=== PATIENT | male | born 1935 | race Caucasian/White ===

== ENCOUNTER → 2019-12-09 | Outpatient (CLI) | payer BC, SELFPAY ==
--- NOTE | 2019-12-09 09:49 | CDU_ITS ---
Reason For Study: [facility] [place] LEFT EYE Rt. Velocities/BP Lt. Velocities/BP Prox CCA 78/18 cm/sec. Prox CCA 76/18 cm/sec. Mid CCA 80/23 cm/sec. Mid CCA 74/22 cm/sec. Dist CCA 55/18 cm/sec. Dist CCA 74/23 cm/sec. Prox ICA 94/27 cm/sec. Prox ICA 264/73 cm/sec. Mid ICA 87/23 cm/sec. Mid ICA 189/31 cm/sec. Dist ICA 52/17 cm/sec. Dist ICA 257/60 cm/sec. Rt. ICA/CCA = 1.2. Lt. ICA/CCA = 3.6. Prox ECA 170/38 cm/sec. Prox ECA 498/66 cm/sec. Rt. Vert. 78/24 cm/sec. Lt. Vert. 34/13 cm/sec. Right Extracranial There is homogeneous, smooth atherosclerotic plaque noted in the right common carotid artery. There is heterogeneous, irregular atherosclerotic plaque noted in the right internal carotid artery. There is heterogeneous, irregular atherosclerotic plaque noted in the right external carotid artery. Antegrade flow is noted in the right vertebral artery. There is heterogeneous, irregular atherosclerotic plaque noted in the right bulb. Left Extracranial There is heterogeneous, irregular atherosclerotic plaque noted in the left common carotid artery. There is homogeneous, smooth atherosclerotic plaque noted in the left common carotid artery. There is heterogeneous, irregular atherosclerotic plaque noted in the left internal carotid artery. The left internal carotid artery is very tortuous. There is heterogeneous, irregular atherosclerotic plaque noted in the left external carotid artery. Antegrade flow is noted in the left vertebral artery. There is heterogeneous, irregular atherosclerotic plaque noted in the left bulb. Procedure Carotid Duplex 34419. The study was technically difficult. Exam performed in department. Interpretation Summary Irregular calcific plaque of the proximal right internal carotid artery with less than 50% stenosis. <50% stenosis right external carotid Irregular calcific plaque left mid common carotid Irregular calcific plaque of the proximal left internal carotid with >70% stenosis and tortuosity noted Irregular plague noted within the left carotid bulb >50% stenosis left external carotid Patent and antegrade vertebrals bilaterally Ordering Physician: Vivian Stone Referring Physician: VIVIAN MORALES Performed By: Vanessa Bhandari RDCS, RVT
== END | disposition home or self-care (01) ==
PROVIDERS: PCP Family Medicine; Referring Provider Ophthalmology; Visit Provider Ophthalmology
DX: H34.212 Partial retinal artery occlusion, left eye (principal)
CPT/HCPCS: 93880

== ENCOUNTER → 2019-12-13 | Outpatient (CLI) | payer BC, SELFPAY ==
[2019-12-13 13:23] VITALS: BMI 28.3
[2019-12-13 14:12] LABS: Hematocrit 42.6 % (40-54); Hemoglobin 14.5 g/dL (13.0-16.5); Mean Corpuscular Hgb 32.4 pg (27.0-32.0); Mean Corpuscular Volume 95.3 fL (80-94); Mean Platelet Vol. 8.4 fl (6.2-12.0); Platelet Count 305 K/mm3 (150-450); RBC Distribution Width CV 13.6 % (11.6-14.6); RBC Distribution Width SD 47.6 fl (35.1-43.9); Red Blood Count 4.47 M/mm3 (4.6-6.2); White Blood Count 11.7 K/mm3 (4.4-11.0)
[2019-12-13 14:21] LABS: Anion Gap 3 (5-15); BUN 21 mg/dL (7-18); BUN/Creat Ratio 14.4 RATIO (10-20); Calcium,Total 9.4 mg/dL (8.5-10.1); Chloride 102 mmol/L (98-107); Creatinine, Serum 1.46 mg/dL (0.70-1.30); EST Glomerular Filtration Rate 49 mL/min (>60); Est Glom Filt Rate - Afr Amer 59 mL/min (>60); Glucose 98 mg/dL (74-106); Potassium 4.5 mmol/L (3.5-5.1); Sodium Level 134 mmol/L (136-145)
== END | disposition home or self-care (01) ==
LOC: PAVLAB 13:56
PROVIDERS: PCP Family Medicine; Referring Provider Surgery; Visit Provider Surgery
DX: Z01.818 Encounter for other preprocedural examination (principal)
CPT/HCPCS: 36415; 80048; 85027

== ENCOUNTER → 2019-12-20 | Outpatient (CLI) | payer BC, SELFPAY ==
[2019-12-13 13:23] VITALS: BMI 28.3
--- NOTE | 2019-12-20 14:46 | CT_ITS ---
STUDY: CTA NECK WITH CONTRAST REASON FOR EXAM: Male, 84 years old. carotid stenosis. hx of prostate ca RADIATION DOSAGE (If Supplied By Facility): CTDIvol = ( 41.23 ) mGy, DLP = ( 1082.76 ) mGycm TECHNIQUE: CT angiography with multi-detector data acquisition was performed from the aortic arch to the skull base following intravenous administration of IV 100ML ISOVUE 370. MIP images were reconstructed from the axial data set. Post-processing of the angiographic images was performed, with multiplanar reformation and 3D reconstruction. Individualized dose optimization techniques were used for this CT. COMPARISON: Carotid ultrasound 12/09/2019 FINDINGS: AORTIC ARCH: Normal visualized aortic arch. Calcified plaque is associated with a 50% stenosis of the origin of the left subclavian artery, with residual lumen diameter of 4 mm a poststenotic diameter of 8 mm. RIGHT CAROTID ARTERIES: Normal right common carotid artery (CCA). Heavy eccentric calcified bulb plaque with an associated 70% proximal ICA stenosis, with residual lumen diameter of 1.8 mm and poststenotic diameter of 6.2 mm. Normal origin of the right external carotid artery (ECA). LEFT CAROTID ARTERIES: Normal left common carotid artery (CCA). Eccentric calcified bulb plaque without proximal ICA stenosis. More distally, eccentric soft ICA plaque is associated with a focal stenosis of 60% stenosis with residual lumen diameter of 2.2 mm and poststenotic diameter of 4.9 mm. Normal origin of the left external carotid artery (ECA). VERTEBRAL ARTERIES: Normal bilateral vertebral arteries. 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 70% stenosis of the right proximal ICA. 60% stenosis of the left proximal ICA. NASCET criteria was used. Electronically Signed: True Cardenas MD at 22:55 EDT Tel , Service support ,
== END | disposition home or self-care (01) ==
LOC: CT 14:38
PROVIDERS: PCP Family Medicine; Referring Provider Surgery; Visit Provider Surgery
DX: Z01.818 Encounter for other preprocedural examination (principal); I65.29 Occlusion and stenosis of unspecified carotid artery
CPT/HCPCS: 70498; Q9967; A4216

== ENCOUNTER → 2019-12-22 | Outpatient (CLI) | payer BC, SELFPAY ==
[2019-12-13 13:23] VITALS: BMI 28.3
--- NOTE | 2019-12-22 08:31 | AAVD_ITS ---
Reason For Study: AAA Aorta Measurements Aorta Doppler Measurements Proximal aorta measures1.44 x 1.57cm. in cross- Peak systolic flow velocities within the proximal sectional axis. aorta measure 53 cm/sec. Proximal aorta measures1.49cm. in longitudinal Peak systolic flow velocities within the mid aorta axis. measure 45.3 cm/sec. Mid aorta measures3.90 x 3.90cm. in cross- Peak systolic flow velocities within the distal sectional axis. aorta measure 44.5 cm/sec. Mid aorta measures3.86cm. in longitudinal axis. Distal aorta measures2.36 x 2.31cm. in cross- sectional axis. Distal aorta measures2.20cm. in longitudinal axis. Left Iliac Artery Left iliac artery measures 0.93 x 0.93 cm. in the cross-sectional axis. Left iliac artery measures 0.86 cm. in the longitudinal axis. Peak systolic velocity in the left iliac artery measures 142.4 cm/sec. Right Iliac Artery Right iliac artery measures 0.98 x 0.93 cm. in the cross-sectional axis. Right iliac artery measures 0.78 cm. in the longitudinal axis. Peak systolic velocity in the right iliac artery measures 138.1 cm/sec. Procedure Aorta IVC Iliac vasculature or bypass grafts 38833. Exam performed in department. Interpretation Summary 3.9 x 3.9 cm mid abdominal aortic aneurysm Left common iliac 0.93 x 0.93 cm Right common iliac 0.98 x 0.93 cm Ordering Physician: Roddy Chapin Referring Physician: Wallace Vora Performed By: Caprice Pitt RVT and Student
== END | disposition home or self-care (01) ==
LOC: CVS 08:31
PROVIDERS: PCP Family Medicine; Referring Provider Surgery; Visit Provider Surgery
DX: I71.4 Abdominal aortic aneurysm, without rupture (principal)
CPT/HCPCS: 93978

== ENCOUNTER 2020-03-27 12:32 | Observation (INO) | payer BC, MEDICARE, SELFPAY ==
[2020-03-27] VITALS (8 sets, daily range): BP systolic 124–146; BP diastolic 70–80; PULSE 62–108; RESP 15–21; TEMP 35.7–37.1; O2SAT 96–97; BMI 28.8; BMI 27.8
--- NOTE | 2020-03-27 12:46 | CT_ITS ---
STUDY: CT BRAIN WITHOUT CONTRAST REASON FOR EXAM: Male, 85 years old. CONFUSION, GENERALIZED WEAKNESS SINCE LAST NIGHT, HTN, PROSTATE CA RADIATION DOSAGE (If Supplied By Facility): CTDIvol = ( 60.81 ) mGy, DLP = ( 998.67 ) mGycm TECHNIQUE: Transaxial CT imaging of the brain was performed without administration of intravenous contrast material. Individualized dose optimization techniques were used for this CT. COMPARISON: No relevant priors. FINDINGS: Normal soft tissue structures. Normal calvarium. There is mild cerebral atrophy with widening of the extra-axial spaces and ventricular dilatation. There are areas of decreased attenuation within the white matter tracts of the supratentorial brain, consistent with microvascular disease changes. Normal basal ganglia and thalami. Normal brainstem. There is mild cerebellar atrophy. There is no intracranial hemorrhage. There are no findings of an acute ischemic infarction. Atherosclerotic calcification of the cavernous portions of the internal carotid arteries bilaterally. Normal visualized paranasal sinuses. CT/Brain/Head without Contrast IMPRESSION: Chronic involutional changes of the brain. Electronically Signed: Hardy Casas MD at 13:50 EST , Service support ,
--- NOTE | 2020-03-27 12:46 | EKG12_ITS ---
Test Reason : Blood Pressure : / mmHG Vent. Rate : 098 BPM Atrial Rate : 098 BPM P-R Int : 172 ms QRS Dur : 106 ms QT Int : 360 ms P-R-T Axes : 000 137 149 degrees QTc Int : 459 ms Normal sinus rhythm Right bundle branch block Possible Right ventricular hypertrophy Inferior infarct , age undetermined Abnormal ECG Confirmed by PEGGY SILVESTRE, KYLEE ([id number]), assignment desk editor DIDI STAHL ([id number]) on 04/02/2020 12:47:18 PM Referred By: MANAN Confirmed By:KYLEE WOODS MD
--- NOTE | 2020-03-27 12:48 | ED.RN ---
NO OLD EKG
--- NOTE | 2020-03-27 12:51 | ED.VISSUMM ---
- ER Visit Summary Date of Service: 03/27/20 Chief Complaint: General weakness and intermittent confusion History of Present Illness: The patient is a 85 M presents with general weakness and intermittent confusion that began yesterday. Patient states it is gradually gotten worse. Patient states his confusion comes and goes. Son states that the patient has been forgetting to complete sentences at times. Patient states he feels weak all over. Patient denies any hemiparesis or facial weakness. Patient does admit to a mild headache. Patient denies any fevers or chills. Patient does admit to some mild rhinorrhea. Patient denies any cough or shortness of breath. Patient denies any loss of taste or smell. Physical Examination: Vital signs are stable. Patient is afebrile. Patient is in no acute distress. Oral mucosa is pink and moist. Neck is supple. Trachea is midline. There is no JVD noted. Heart was regular rate and rhythm. Lungs are clear and equal bilaterally. Abdomen is soft. Bowel sounds are normal. There is no tenderness. There is no rebound or guarding noted. Skin is warm dry. Patient is awake, alert, and oriented to person, place, year, and month. She is confused on the date. Cranial nerves II through XII are intact. There are no focal motor or sensory deficits noted. Extremities are intact. There is no calf tenderness or edema. Test Results: EKG was obtained. On my interpretation, there is normal sinus rhythm with a rate of 98. There is a right bundle branch block pattern noted. There are no acute ST or T wave changes. There are no prior EKGs available for comparison. CBC shows a leukocytosis of 14.3. Basic metabolic profile was essentially within normal limits. Lactate was elevated at 2.8. Urinalysis does not show any evidence of urinary tract infection. CT scan of the brain was obtained. There are chronic changes but no acute abnormality. This was interpreted by the radiologist and reviewed by myself. Portable 1 view chest x-ray was obtained. On my interpretation, lung alfaro are clear. There is normal cardiac silhouette. Bony thorax is normal. There is no acute process noted. Radiologist also interpreted the x-ray and agrees. COVID-19 rapid antigen was obtained and was negative. Emergency Department Course and Treatment: Patient was given IV fluids. Patient is feeling better on reevaluation. Case was discussed with the hospitalist. Patient will be admitted for observation. Patient and family understood and were agreeable with the plan. All questions were answered. Disposition: Admit to hospital Impression: 1. TIA 2. Lactic acidosis This note was generated with [employer] dictation software. It may contain incorrect words, spelling, and punctuation that were not noted in review of the chart prior to signing ED Disposition - Plan for ED Patient: Disposition: Acute Care Hospital [facility] Diagnosis: TIA (transient ischemic attack), Lactic acidosis Referrals: Wallace Vora MD [Primary Care Provider] -
--- NOTE | 2020-03-27 13:15 | RAD_ITS ---
STUDY: X-RAY CHEST REASON FOR EXAM: Male, 85 years old. PT STATES GENERAL WEAKNESS SINCE LAST NIGHT AND INTERMITTENT CONFUSION. DENIES INJURY OR OTHER C/O. TECHNIQUE: Single AP portable view of the chest. COMPARISON: None. FINDINGS: EKG electrodes are seen. Mild elevation of the right hemidiaphragm. Mild degree of increased markings at the lung bases suggestive of either linear atelectasis and/or scar. There is no demonstrated pleural abnormality. Normal size heart. Normal mediastinum and mj. Normal visualized pulmonary arteries. There is atherosclerotic calcification of the aortic arch with tortuosity. There are degenerative changes of the visualized thoracic spine. Normal visualized ribs, clavicles, and shoulders. There is no demonstrated abnormality of the visualized soft tissue structures of the upper abdomen. RAD/Chest 1 View (Portable) IMPRESSION: Mild degree of increased linear markings at the lung bases suggestive of linear atelectasis and/or scarring. Electronically Signed: Hardy Casas MD at 13:42 EST , Service support ,
[2020-03-27 13:26] LABS: Bedside Glucose 111 mg/dL (70-110)
[2020-03-27 13:29] LABS: Absolute Lymphocyte Count 0.69 X10^3/uL (0.83-4.51); Basophil# 0.06 X10^3/uL; Basophil% 0.4 % (0-1); Hematocrit 41.9 % (40-54); Hemoglobin 14.8 g/dL (13.0-16.5); Lymphocyte # 0.69 X10^3/ul (4.0); Lymphocyte % 4.8 % (19-41); Mean Corp Hgb Conc 35.3 g/dL (32-36); Mean Corpuscular Hgb 33.3 pg (27.0-32.0); Mean Corpuscular Volume 94.2 fL (80-94); Mean Platelet Vol. 9.6 fl (6.2-12.0); Monocyte# 0.43 X10^3/uL; NRBC Flagged by Analyzer 0 % (0-5); Neutrophil # 13.02 X10^3/uL (2.7-7.7); Neutrophil % 91.2 % (47-70); Platelet Count 274 K/mm3 (150-450); RBC Distribution Width CV 13.4 % (11.6-14.6); RBC Distribution Width SD 46.9 fl (35.1-43.9); Red Blood Count 4.45 M/mm3 (4.6-6.2); White Blood Count 14.3 K/mm3 (4.4-11.0)
[2020-03-27 13:49] LABS: Lactic Acid 2.8 mmol/L (0.4-1.9)
[2020-03-27 13:50] LABS: ALB/GLOB Ratio 1.3 RATIO (0.9-2.4); AST(SGOT) 17 U/L (15-37); Alanine Aminotransfer ALT/SGPT 29 U/L (16-61); Alkaline Phosphatase 55 U/L (45-117); Anion Gap 5 (5-15); BUN 23 mg/dL (7-18); BUN/Creat Ratio 16.7 RATIO (10-20); Calcium,Total 9.1 mg/dL (8.5-10.1); Chloride 104 mmol/L (98-107); Creatinine, Serum 1.38 mg/dL (0.70-1.30); EST Glomerular Filtration Rate 52 mL/min (>60); Est Glom Filt Rate - Afr Amer 63 mL/min (>60); Estimated Creatinine Clearance 39.14 ml/min; Globulin 3.1 g/dL (2.2-4.2); Glucose 125 mg/dL (74-106); Potassium 4.7 mmol/L (3.5-5.1); Protein, Total 7.1 g/dL (6.4-8.2); Sodium Level 136 mmol/L (136-145)
[2020-03-27 14:07] LABS: Bacteria 0 SEEN /hpf (None Seen); Mucous, Urine 0 SEEN /hpf (<or=2+); White Blood Cells 0 SEEN /hpf (0-5)
[2020-03-27 14:33] LABS: Color, Urine Yellow (Yellow); Glucose, Dipstick Normal (Normal); Ketone-Dipstick 5 mg/dl (Negative); Leukocyte Esterase-Dipstick Negative /ul (Negative); Nitrite-Dipstick Negative (Negative); Occult Blood-Urine 50 /ul (Negative); Protein-Dipstick 100 mg/dl (Negative); Urine Bilirubin Dipstick Negative (Negative); Urine Clarity Clear (Clear); Urine Urobilinogen Normal (Normal); Urine pH 6.5 (5.0 - 8.0)
[2020-03-27 14:40] LABS: Red Blood Cells-Urine 0-5 SEEN /hpf (0-5); Squamous Epithelial Cells - UA 0-5 SEEN /hpf (0-5)
[2020-03-27] MEDS: 0.9% Normal Saline 1,000 ML 999 ML IV (15:04)
--- NOTE | 2020-03-27 15:40 | PCM.HP.STD ---
Problem List (1) Lactic acidosis Status: Acute (2) Abdominal aortic aneurysm (AAA) Status: Acute Qualifiers: Presence of rupture: without rupture Qualified Code(s): I71.4 - Abdominal aortic aneurysm, without rupture (3) Hyperlipidemia Status: Chronic Qualifiers: Hyperlipidemia type: unspecified Qualified Code(s): E78.5 - Hyperlipidemia, unspecified (4) Hypertension Status: Chronic Qualifiers: Hypertension type: essential hypertension Qualified Code(s): I10 - Essential (primary) hypertension (5) Carotid stenosis Status: Acute Qualifiers: Laterality: left Qualified Code(s): I65.22 - Occlusion and stenosis of left carotid artery History of Present Illness Date of Admission: 03/27/20 Chief Complaint: Confusion- 1 day The patient is a 85 year old M with past medical history of hypertension, hyperlipidemia, recently diagnosed with carotid stenosis, aortic aneurysm who comes in with confusion that was noted on the day of admission. Patient lives with his is fairly independent. He was recently diagnosed with carotid stenosis. He was told that if he had confusion he was to come to the emergency department. He was noted to be confused today which is unlike himself. Today is his birthday but he could not tell. He denied any recent illness. No sick contact. No fever or chills or diarrhea or nausea or vomiting or dysuria. Vitals in the ED showed temperature of 98.8F, heart rate 108, blood pressure 134/76, respiratory rate 16, SPO2 is 97% on room air. WBC count is 14.3, hemoglobin 14.8, platelet 274, sodium 136, potassium 4.7, chloride 104, bicarbonate 27, BUN 23, creatinine 1.38,. Creatinine is 1.46. Actiq acid is 2.8, troponins are negative. LFTs unremarkable. CT scan of the brain showed chronic involuntary changes. Chest x-ray showed mild degree of increased linear markings in the lung bases suggestive of atelectasis/scarring Brain MRI showed mild atrophy and periventricular white matter ischemic changes. Multiple punctate foci of acute white matter ischemia within the left frontal and parietal lobes and distribution of the left middle cerebral artery. Past Medical History Past Medical History (Chronic Problems): Chronic Problems (Last Reviewed 12/26/19 @ 13:29 by Vicenta Owens) Hyperlipidemia (Chronic) Hypertension (Chronic) Medical History: Medical History (Last Reviewed 12/26/19 @ 13:29 by Vicenta Owens) Abdominal aortic aneurysm (AAA) (Acute) I71.4 Hyperlipidemia (Acute) E78.5 Hypertension (Chronic) I10 Carotid stenosis (Acute) I65.29 Allergies No Known Allergies Allergy (Verified 03/27/20 12:36) Home Medications: Ambulatory Orders Medication Instructions Recorded aspirin 81 mg tablet,delayed 81 mg PO DAILY 12/13/19 release calcium carbonate 600 mg calcium 600 mg PO QODAY 12/13/19 (1,500 mg) tablet cetirizine 10 mg tablet 10 mg PO DAILY PRN PRN 12/13/19 guaifenesin 600 mg tablet, 600 mg PO Q12H PRN 12/13/19 extended release 12 hr lisinopril 30 mg tablet 30 mg PO DAILY 12/13/19 spironolactone 25 mg tablet 25 mg PO DAILY 12/13/19 vit C,E,zinc,copper-bhnap7e 250 1 cap PO DAILY 12/13/19 mg-lutein 5 mg-zeaxanthin 1 mg capsule atorvastatin 10 mg tablet 10 mg PO QODAY tab 12/26/19 Surgical History: Surgical History (Last Reviewed 12/26/19 @ 13:29 by Vicenta Owens) History of tonsillectomy and adenoidectomy Z98.890 Surgical History: tonsillectomy Psychiatric History: No pertinent psych hx Lives: Spouse/ Significant Other, With Family Smoking Status: Former smoker Tobacco Use: Non-smoker Alcohol: None Drugs: None - *Family History Maternal Family History: Family History (Last Reviewed 12/26/19 @ 13:29 by Vicenta Owens) Mother CVA (cerebral vascular accident) History Items: Stroke - Brain aneurysm, - Paternal Family History: Family History (Last Reviewed 12/26/19 @ 13:29 by Vicenta Owens) Mother CVA (cerebral vascular accident) History Items: No pertinent history Review of Systems Constitutional: Denies: Anorexia, Chills, Fever, Night Sweats, Malaise, Weakness, Weight Change, Fatigue Eyes: Denies: Blurred vision, Cataracts, Conjunctivae Inflammation, Pain, Redness, Vision Change HEENT: Denies: Head Aches, Hearing Changes, Sinus Congestion, Sinus Drainage Cardiovascular: Denies: Chest Pain, Claudication, Orthopnea, Palpitations, Paroxysmal Noc. Dyspnea Respiratory: Denies: Cough, Hemoptysis, Shortness of breath at rest, Shortness of breath upon exertion, Sputum production, Wheezing Gastrointestinal: Denies: Abdominal Pain, Constipation, Hematemesis, Hematochezia, Nausea, Vomiting Genitourinary: Denies: Dysuria, Frequency, Incontinence, Nocturia Musculoskeletal: Denies: Joint Pain, Joint stiffness, Joint swelling, Joint Tenderness Skin: Denies: Rash, Wounds Neurological: Reports: Confusion. Denies: Difficulty swallowing, Focal weakness, Numbness, Tingling Psychiatric: Denies: Anxiety, Depression, Homicidal Ideations, Suicidal Ideations Hematologic/ Lymphatic: Denies: Easy Bruising, Easy Bleeding VTE Information - Inpt Only VTE Present on Admission: No VTE Pharm Prophylaxis ordered?: Yes Patient Problems: Active and Suspected Problems (Last Reviewed 12/26/19 @ 13:29 by Vicenta Owens) TIA (transient ischemic attack) (Acute) Lactic acidosis (Acute) Abdominal aortic aneurysm (AAA) (Acute) Carotid stenosis (Acute) - Physical Exam Vitals/I&O's: Vital Signs Temp Pulse Resp BP Pulse Ox 98.8 F 89 20 H 136/80 H 96 03/27/20 12:33 03/27/20 15:04 03/27/20 15:04 03/27/20 15:04 03/27/20 15:04 Oxygen Delivery Method Room Air Weight: 88.451 kg Body Mass Index (BMI) 28.8 Finger Stick Blood Glucose 111 General: Alert, Cooperative, Confused - Oriented to person, place but not time HEENT: Atraumatic, PERRLA, EOMI, Normocephalic Oral: Moist Mucosa Neck: Supple Lungs: Clear to auscultation, Normal air movement Cardiovascular: Regular rate, Regular Rhythm, Normal S1, Normal S2, No murmurs Abdomen: Bowel Sounds Present, Soft, Non Tender, Non-Distended, No Hepato-splenomegaly Extremities: No edema Skin: No rashes Musculoskeletal: No Tenderness to Palpation of Joints or Extremities Lymphatic: No Cervical, Supraclavicular, or Inguinal Adenopathy Neurological: Cranial nerves II-XII grossly intact, Neuro grossly intact Psych/Mental Status: Normal Affect, Appropriate Microbiology Past 72 Hours 03/27/20 13:15 Mucosa - Nose SARS-CoV-2 Antigen (Rapid) - Final Laboratory Results 03/27/20 13:15: WBC 14.3 H, RBC 4.45 L, Hgb 14.8, Hct 41.9, MCV 94.2 H, MCH 33.3 H, MCHC 35.3, RDW Std Deviation 46.9 H, RDW Coeff of Britt 13.4, Plt Count 274, MPV 9.6, Immature Gran % (Auto) 0.600, Neut % (Auto) 91.2 H, Lymph % (Auto) 4.8 L, [place] % (Auto) 3.0, Eos % (Auto) 0.0, Baso % (Auto) 0.4, Absolute Neuts (auto) 13.0 H, Absolute Lymphs (auto) 0.69 L, Nucleated RBC % 0 03/27/20 13:15: Sodium 136, Potassium 4.7, Chloride 104, Carbon Dioxide 27.0, Anion Gap 5, BUN 23 H, Creatinine 1.38 H, Estim Creat Clear Calc 39.14, Est GFR (MDRD) Af Amer 63, Est GFR (MDRD) Non-Af 52 L, BUN/Creatinine Ratio 16.7, Glucose 125 H, Calcium 9.1, Total Bilirubin 0.50, AST 17, ALT 29, Alkaline Phosphatase 55, Troponin I < 0.015, Total Protein 7.1, Albumin 4.0, Globulin 3.1, Albumin/Globulin Ratio 1.3 03/27/20 13:15: Lactic Acid 2.8 H* 03/27/20 13:21: POC Glucose 111 H 03/27/20 14:00: Urine Color Yellow, Urine Clarity Clear, Urine pH 6.5, Ur Specific [place] 1.010, Urine Protein 100 H, Urine Glucose (UA) Normal, Urine Ketones 5 H, Urine Occult Blood 50 H, Urine Nitrite Negative, Urine Bilirubin Negative, Urine Urobilinogen Normal, Ur Leukocyte Esterase Negative, Urine RBC 0-5 SEEN, Urine WBC 0 SEEN, Ur Squamous Epith Cells 0-5 SEEN, Urine Bacteria 0 SEEN, Urine Mucus 0 SEEN Current Medications Sodium Chloride () 1,000 mls @ 999 mls/hr IV .Q1H1M ONE Stop: 03/27/20 15:45 Last Admin: 03/27/20 15:04 Dose: 999 mls/hr Documented by: Assessment/Plan All Active Problems (Last Reviewed 12/26/19 @ 13:29 by Vicenta Owens) TIA (transient ischemic attack) (Acute) Lactic acidosis (Acute) Abdominal aortic aneurysm (AAA) (Acute) Carotid stenosis (Acute) 1. 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 PT/OT/ST to evaluate and treat SOC consult in a.m. 2. Lactic acidosis; lactic acid of 2.1, no signs of acute infection Continue on IV fluids, repeat lactic acid per protocol 3. Carotid stenosis, bilateral, 70% stenosis of the right proximal ICA, 60% stenosis of the left ICA Continue on aspirin, Plavix, statin Repeat carotid ultrasound, vascular surgery consult 4. Hypertension, controlled, lisinopril and spironolactone to allow for permissive hypertension We will add hydralazine as needed 5. Hyperlipidemia, continue statin, lipid profile in a.m. 6. DVT prophylaxis - heparin subcu 7. CODE STATUS?DNR CCA I discussed and explained in details the various types of CODE STATUS-full code, DNR CCA, DNR CC. Patient chose DNR CCA. I recommended that he chooses and completes paperwork for power of county attorney for healthcare. I discussed with his son that he could discuss with social work in the morning. Time spent discussing CODE STATUS 18 minutes OBSV E&M: [id number] Initial observation care L3 Procedures: [id number] Advncd Care Plan 30 Min
[2020-03-27 17:21] LABS: Reflex Lactate? Y
--- NOTE | 2020-03-27 17:44 | MRI_ITS ---
We are attempting to reach an attending provider to discuss findings. An addendum with communication details will be sent when the communication is complete. STUDY: MRI BRAIN WITHOUT CONTRAST REASON FOR EXAM: Male, 85 years old. Confusion,generalized weakness TECHNIQUE: Standardized multiplanar fat and water weighted pulse sequences were obtained. COMPARISON: CT of the brain 03/27/2020 FINDINGS: Mild atrophy and periventricular white matter ischemic changes.. There are multiple punctate foci of high signal intensity within the periventricular white matter in the left frontal and parietal lobes demonstrating restricted diffusion consistent with acute ischemic changes in the distribution of left middle cerebral artery Normal bilateral basal ganglia. Normal thalami. There is no extra-axial fluid accumulation. Normal flow voids within the major intracranial circulation suggesting patency by spin echo criteria. Normal sella turcica, pituitary gland, infundibular stalk, optic chiasm and hypothalamus. Normal tectal plate and pineal gland. Normal midbrain, shala and medulla. Normal cerebellum. Normal basal cisterns. Normal bilateral temporal bones. Normal bilateral internal auditory canals. Postsurgical changes of the orbits.. Small mucous retention cyst in right maxillary sinus.. Normal calvarium and skull base. Normal visualized soft tissue structures. Normal visualized upper cervical spine. MRI/Brain without Contrast IMPRESSION: Mild atrophy and periventricular white matter ischemic changes. Multiple punctate foci of acute white matter ischemia within the left frontal and parietal lobes in distribution of left middle cerebral artery Electronically Signed: Wallace Saxena MD at 19:18 EST , Service support ,
[2020-03-27 19:28] LABS: Lactic Acid 1.2 mmol/L (0.4-1.9)
--- NOTE | 2020-03-27 19:48 | CDU_ITS ---
Reason For Study: Carotid stenosis Rt. Velocities/BP Lt. Velocities/BP Prox CCA 61.7/8.2 cm/sec. Prox CCA 60.8/13.5 cm/sec. Mid CCA 61.7/13.4 cm/sec. Mid CCA 59.7/15.7 cm/sec. Dist CCA 59.1/13.4 cm/sec. Dist CCA 60.8/14.6 cm/sec. Prox ICA 71.6/12.6 cm/sec. Prox ICA 54.4/9 cm/sec. Mid ICA 104.7/17 cm/sec. Mid ICA 339.5/50.1 cm/sec. Dist ICA 58.6/12.4 cm/sec. Dist ICA 207.8/36.5 cm/sec. Rt. ICA/CCA = 1.70. Lt. ICA/CCA = 5.58. Prox ECA 138.1/16.3 cm/sec. Prox ECA 315/16.9 cm/sec. Rt. Vert. 76.2/14.6 cm/sec. Lt. Vert. 29.1/9.9 cm/sec. Right Extracranial There is homogeneous, smooth atherosclerotic plaque noted in the right common carotid artery. There is heterogeneous, irregular atherosclerotic plaque noted in the right internal carotid artery. There is heterogeneous, irregular atherosclerotic plaque noted in the right external carotid artery. Antegrade flow is noted in the right vertebral artery. Left Extracranial There is heterogeneous, irregular atherosclerotic plaque noted in the left common carotid artery. There is heterogeneous, irregular atherosclerotic plaque noted in the left internal carotid artery. There is heterogeneous, irregular atherosclerotic plaque noted in the left external carotid artery. Antegrade flow is noted in the left vertebral artery. Procedure Carotid Duplex 13119. This is a Carotid Duplex examination using B-mode, color flow and specral Doppler. Exam performed portable in patient room. Interpretation Summary Irregular calcific plaque with shadowing at the proximal right internal carotid artery with less than 50% stenosis Less than 50% stenosis right external carotid artery Irregular calcific plaque with shadowing at the proximal left internal carotid artery with greater than 70% stenosis of the left mid internal carotid artery. Greater than 50% stenosis left external carotid artery Patent and antegrade vertebrals bilaterally Findings appear similar to the previous examination of December 09, 2019 Ordering Physician: Sydney Terry Referring Physician: Wallace Vora Performed By: Caprice Pitt RVT
--- NOTE | 2020-03-27 19:50 | ECHOCS_ITS ---
Reason For Study: TIA Procedure This was a 2D Doppler, Color Flow transthoracic echocardiogram. The study was technically difficult. Contrast injection was performed. Exam performed portable in patient room. Left Ventricle Normal LV size. Left ventricular systolic function is normal. The estimated ejection fraction is 65 %. Diastolic function is indeterminate. No regional wall motion abnormalities noted. Right Ventricle Normal RV size. Normal systolic function. Atria Normal left atrium. Normal right atrium. No doppler evidence for ASD. Bubble contrast study negative for right to left interatrial shunt. Mitral Valve There is no mitral annular calcification. Normal mitral valve. Trivial mitral valve insufficiency. Tricuspid Valve Normal tricuspid valve. Mild tricuspid valve insufficiency. Right ventricular systolic pressure estimated to be 25 mmHg. Aortic Valve Trisinus/trileaflet aortic valve. Mild focal aortic valve calcification. Pulmonic Valve The pulmonic valve is not well visualized. Trivial pulmonic valve insufficiency. Great Vessels Mildly dilated aortic root. Pericardium/Pleural No pericardial effusion. Medication Diluted definity 5.0ml given slow IV push to enhance endocardial definition. Performed a rapid injection of agitated mix of 9 cc saline and 1cc air to assess for atrial septal defect. MMode/2D Measurements & Calculations LVIDd: 4.6 cm IVSd: 0.70 cm Ao root diam: 4.1 cm LVIDs: 3.5 cm LVPWd: 0.71 cm LA dimension: 3.2 cm FS: 23.6 % LAV(MOD-bp): 29.2 ml LVAd ap4: 26.5 cm2 SV(MOD-sp4): 53.6 ml LAV(MOD-bp) Indexed: 14.2 ml/m2 EDV(MOD-sp4): 78.0 ml LAV(MOD-sp2): 33.7 ml EDV(sp4-el): 79.4 ml LAV(MOD-sp4): 24.4 ml LVAs ap4: 13.4 cm2 ESV(MOD-sp4): 24.3 ml ESV(sp4-el): 24.9 ml EF(MOD-sp4): 68.8 % EF(sp4-el): 68.6 % SV(sp4-el): 54.5 ml LA A4 area: 12.7 cm2 RA A4 area: 16.6 cm2 Time Measurements MV dec time: 0.23 sec Doppler Measurements & Calculations MV E max neri: 106.6 cm/sec Lat Peak E' Neri: 7.0 cm/sec Med Peak E' Neri: 5.0 cm/sec MV A max neri: 80.2 cm/sec E/E' lat: 15.3 E/E' med: 21.2 MV E/A: 1.3 Ao V2 max: 147.9 cm/sec LV V1 max: 130.8 cm/sec PA V2 max: 79.4 cm/sec Ao max P.8 mmHg LV V1 max P.8 mmHg PI end-d neri: 90.9 cm/sec TR max neri: 234.7 cm/sec TR max P.0 mmHg Interpretation Summary The study was technically difficult. Contrast injection was performed. Left ventricular systolic function is normal. The estimated ejection fraction is 65 %. Trivial mitral valve insufficiency. Mild tricuspid valve insufficiency. Mild focal aortic valve calcification. Trivial pulmonic valve insufficiency. Mildly dilated aortic root. Right ventricular systolic pressure estimated to be 25 mmHg. Diastolic function is indeterminate. Bubble contrast study negative for right to left interatrial shunt. Ordering Physician: Sydney Terry Referring Physician: VIVIAN MORALES Performed By: Vanessa Bhandari, NADER, RVT
--- NOTE | 2020-03-27 19:51 | TELEMED_ITS ---
[facility] Tele[facility] has confirmed receipt of a request for visit. This document confirms receipt of the order initiating the consult. To find the results of the consultation, please view the patient's reports for the scanned Telemed Consult.
[2020-03-27] MEDS: 0.9% Normal Saline 1,000 ML 150 ML IV (20:00)
[2020-03-27 21:19] LABS: Hemoglobin A1c 6.1 % (3.8-5.6)
--- NOTE | 2020-03-27 21:32 | NURSING ---
Dr. Hernandes from [facility] on SOC monitor with pt. at this time. RN at bedside.
[2020-03-27] MEDS: Atorvastatin Calcium 40 MG Tablet PO (22:13)
[2020-03-27] MEDS: Clopidogrel Bisulfate 75 MG Tablet PO (22:13)
[2020-03-27] MEDS: Heparin Injection (Vial) 5,000 UNIT/ML VIAL 5000 UNIT SC (22:13)
[2020-03-28] VITALS (7 sets, daily range): BP systolic 123–129; BP diastolic 58–72; PULSE 57–66; RESP 16–18; TEMP 36.7–37.1; O2SAT 95–99; BMI 27.8
--- NOTE | 2020-03-28 03:55 | PCS.PANDOC ---
PANDEMIC DOCUMENTATION INITIATED: Date: 03/27/20 Time: 17:51
[2020-03-28] MEDS: 0.9% Normal Saline 1,000 ML 150 ML IV (04:01)
[2020-03-28 06:02] LABS: Absolute Lymphocyte Count 0.77 X10^3/uL (0.83-4.51); Absolute Neutrophil Count 8.8 X10^3/uL (2.0-7.7); Basophil# 0.06 X10^3/uL; Basophil% 0.6 % (0-1); Eosinophil# 0.05 X10^3/uL; Eosinophils% 0.5 % (0-5); Hemoglobin 12.9 g/dL (13.0-16.5); Lymphocyte # 0.77 X10^3/ul (4.0); Lymphocyte % 7.5 % (19-41); Mean Corp Hgb Conc 33.1 g/dL (32-36); Mean Corpuscular Hgb 32.3 pg (27.0-32.0); Mean Corpuscular Volume 97.7 fL (80-94); Mean Platelet Vol. 8.5 fl (6.2-12.0); Monocyte# 0.48 X10^3/uL; Monocyte% 4.7 % (0-10); NRBC Flagged by Analyzer 0 % (0-5); Neutrophil # 8.81 X10^3/uL (2.7-7.7); Neutrophil % 86.4 % (47-70); Platelet Count 221 K/mm3 (150-450); RBC Distribution Width CV 13.6 % (11.6-14.6); RBC Distribution Width SD 49.2 fl (35.1-43.9); Red Blood Count 3.99 M/mm3 (4.6-6.2); White Blood Count 10.2 K/mm3 (4.4-11.0)
--- NOTE | 2020-03-28 06:04 | CON.PCM_ITS ---
Problem List (1) TIA (transient ischemic attack) Status: Acute (2) Carotid stenosis Status: Acute Qualifiers: Laterality: left Qualified Code(s): I65.22 - Occlusion and stenosis of left carotid artery Reason for Consult Date of Consultation: 03/28/20 History of Present Illness: The patient is a 85 year old M been asked to see by Dr. Terry because of bilateral carotid stenosis now felt to be symptomatic on the left. He was admitted with confusion. Nausea vomiting. Denies Any Abdominal Pain. Of Note He Had a Leukocytosis with a White Count of 14,000 and a Left Shift with 90% Segs. Initial Lactic Acid Level Was Elevated at 2.8. Urinalysis does not appear to be remarkable. The patient states that he feels that he is back to baseline currently. He simply describes yesterday as being a day when he simply did not feel well. A head CT scan did not demonstrate acute event. A brain MRI however demonstrated the following: IMPRESSION: Mild atrophy and periventricular white matter ischemic changes. Multiple punctate foci of acute white matter ischemia within the left frontal and parietal lobes in distribution of left middle cerebral artery My notes from December 2019 reflect the following: Visit Reasons: carotid / AAA Chief Complaint: Carotid stenosis [employer] Required: No Is patient in pain?: No Allergies No Known Allergies Allergy (Verified 12/26/19 13:30) Medications aspirin 81 mg tablet,delayed release 81 mg PO DAILY 12/13/19 [History Confirmed 12/26/19] calcium carbonate 600 mg calcium (1,500 mg) tablet 600 mg PO DAILY 12/13/19 [History Confirmed 12/26/19] cetirizine 10 mg tablet 5 mg PO DAILY PRN 12/13/19 [History Confirmed 12/26/19] guaifenesin 600 mg tablet, extended release 12 hr 600 mg PO Q12H PRN 12/13/19 [History Confirmed 12/26/19] lisinopril 30 mg tablet 30 mg PO DAILY 12/13/19 [History Confirmed 12/26/19] spironolactone 25 mg tablet 25 mg PO DAILY 12/13/19 [History Confirmed 12/26/19] vit C,E,zinc,copper-vsnpy3c 250 mg-lutein 5 mg-zeaxanthin 1 mg capsule 1 cap PO DAILY 12/13/19 [History Confirmed 12/26/19] atorvastatin 10 mg tablet 10 mg PO DAILY tab 12/26/19 [History Confirmed 12/26/19] PFSH Medical History Hyperlipidemia (Acute) Hypertension (Chronic) Carotid stenosis (Acute) Surgical History History of tonsillectomy and adenoidectomy (Acute) Family History Mother CVA (cerebral vascular accident) Social History (Updated 12/26/19 @ 14:[address] Dami Chapin MD) Smoking Status: Never smoker alcohol intake: current alcohol intake frequency: a few times a month substance use type: does not use HPI HPI HPI: DAMI SANCHEZ, is a 84 M who presents to the office today for surgical consultation regarding Hollenhorst plaque left eye and bilateral carotid stenosis. I previously saw this patient December 13, 2019. On clinical exam I was suspicious about an aortic aneurysm. The carotid duplex imaging had suggested a less than 50% stenosis of the right carotid and greater than 70% stenosis of the left internal carotid. My notes are located below. I subsequently requested a CTA of the carotids and a aortic duplex exam. The testing result is located below. The interpretation is 70% stenosis of the right internal carotid artery and 60% stenosis of the left internal carotid. On the patient's initial visit he was on aspirin 81 mg daily. He was not on a cholesterol medication. He has subsequently been initiated on atorvastatin 10 mg daily. He has remained asymptomatic. Neck CTA [facility] [address] [place] [id number] CTA Neck W/WO Contrast MR#: [id number] Name: DAMI SANCHEZ [facility] #:[id number] : 1935M 84 From: True Cardenas MD PCP:Dr. Vivian Morales MD Status:REG CLI Study:CTA Neck W/WO Contrast Date of Exam:12/20/19 Exam#[id number] Ordering Dr: Dami Chapin MD STUDY: CTA NECK WITH CONTRAST REASON FOR EXAM: Male, 84 years old. carotid stenosis. hx of prostate ca RADIATION DOSAGE (If Supplied By Facility): CTDIvol = ( 41.23 ) mGy, DLP = ( 1082.76 ) mGycm TECHNIQUE: CT angiography with multi-detector data acquisition was performed from the aortic arch to the skull base following intravenous administration of IV 100ML ISOVUE 370. MIP images were reconstructed from the axial data set. Post-processing of the angiographic images was performed, with multiplanar reformation and 3D reconstruction. Individualized dose optimization techniques were used for this CT. COMPARISON: Carotid ultrasound 12/09/2019 FINDINGS: AORTIC ARCH: Normal visualized aortic arch. Calcified plaque is associated with a 50% stenosis of the origin of the left subclavian artery, with residual lumen diameter of 4 mm a poststenotic diameter of 8 mm. RIGHT CAROTID ARTERIES: Normal right common carotid artery (CCA). Heavy eccentric calcified bulb plaque with an associated 70% proximal ICA stenosis, with residual lumen diameter of 1.8 mm and poststenotic diameter of 6.2 mm. Normal origin of the right external carotid artery (ECA). LEFT CAROTID ARTERIES: Normal left common carotid artery (CCA). Eccentric calcified bulb plaque without proximal ICA stenosis. More distally, eccentric soft ICA plaque is associated with a focal stenosis of 60% stenosis with residual lumen diameter of 2.2 mm and poststenotic diameter of 4.9 mm. Normal origin of the left external carotid artery (ECA). VERTEBRAL ARTERIES: Normal bilateral vertebral arteries. 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 70% stenosis of the right proximal ICA. 60% stenosis of the left proximal ICA. NASCET criteria was used. Electronically Signed: True Cardenas MD at 22:55 EDT Tel , Service support , [facility] [place] [address] Abd Aortic/IVC Duplex scan 12/22/19 0849 MR#: [id number] Name: DAMI SANCHEZ [facility] #:[id number] : 1935 84From: Dami Chapin MD Attending Dr: DOLORES De Jesustatus: REG CLI Ordering Dr: Dami Chapin MDDate: 12/22/19 [facility] Ad[facility]: Reason For Study: AAA Aorta Measurements Aorta Doppler Measurements Proximal aorta measures1.44 x 1.57cm. in cross- Peak systolic flow velocities within the proximal sectional axis. aorta measure 53 cm/sec. Proximal aorta measures1.49cm. in longitudinal Peak systolic flow velocities within the mid aorta axis. measure 45.3 cm/sec. Mid aorta measures3.90 x 3.90cm. in cross- Peak systolic flow velocities within the distal sectional axis. aorta measure 44.5 cm/sec. Mid aorta measures3.86cm. in longitudinal axis. Distal aorta measures2.36 x 2.31cm. in cross- sectional axis. Distal aorta measures2.20cm. in longitudinal axis. Left Iliac Artery Left iliac artery measures 0.93 x 0.93 cm. in the cross-sectional axis. Left iliac artery measures 0.86 cm. in the longitudinal axis. Peak systolic velocity in the left iliac artery measures 142.4 cm/sec. Right Iliac Artery Right iliac artery measures 0.98 x 0.93 cm. in the cross-sectional axis. Right iliac artery measures 0.78 cm. in the longitudinal axis. Peak systolic velocity in the right iliac artery measures 138.1 cm/sec. Procedure Aorta IVC Iliac vasculature or bypass grafts [id number]. Exam performed in department. Interpretation Summary 3.9 x 3.9 cm mid abdominal aortic aneurysm Left common iliac 0.93 x 0.93 cm Right common iliac 0.98 x 0.93 cm Ordering Physician: Dami Chapin Referring Physician: Vivian Morales Performed By: Caprice Pitt RVT and Student 12/22/19 1050 Date Dami Chapin MD My previous notes reflect the following. On December 13, 2019 on clinical exam I felt that I detected abdominal aortic aneurysm which were not previous noted. I also recommended that we obtain a CTA of the carotids for further definition. His previous carotid duplex imaging is as below. My plan on December 26, 2019 as noted below HPI: DAMI SANCHEZ, is a 84 M who presents to the office today for surgical consultation regarding a Hollenhorst plaque left eye. The patient is referred by Dr. Vivian Stone and a written copy my surgical consult recommendations will be returned to him as well as forwarded on to Dr. Vivian Morales. Very pleasant 84-year-old gentleman. He has been symptom-free. He denies any vision problems slurred speech motor or sensory loss. He has never had a previous head CT scan as far as he is aware. As noted below he had carotid duplex imaging at the [facility] showing no significant disease on the right but there was felt to be greater than 70% stenosis with irregular plaque on the left. Again the patient has not had any left eye vision deficit. He is not currently on a statin medication. He states that he has been on treatment in the past. Most recent laboratory that we have demonstrates triglycerides at 157 HDL 35 LDL 118 non-HDL cholesterol at 149 with a total cholesterol to HDL ratio 5.26 and an LDL to HDL ratio of 3.37. His BUN was 23 and creatinine 1.32. His exercise includes walking. He does have some right calf cramping with walking. He denies any chest pain no shortness of breath he is not detected any skipping of his heart rate [facility] [place] [address] Carotid Duplex Ultrasound 12/09/19 0956 MR#: [id number] Name: DAMI SANCHEZ [facility] #:[id number] : 1935 84From: Dami Chapin MD Attending Dr: Dr. Vivian Stone, MDStatus: REG CLI Ordering Dr: Vivian Stone MDDate: 12/09/19 [facility]: Reason For Study: HOLLENHURST PLAQUE LEFT EYE Rt. Velocities/BP Lt. Velocities/BP Prox CCA 78/18 cm/sec. Prox CCA 76/18 cm/sec. Mid CCA 80/23 cm/sec. Mid CCA 74/22 cm/sec. Dist CCA 55/18 cm/sec. Dist CCA 74/23 cm/sec. Prox ICA 94/27 cm/sec. Prox ICA 264/73 cm/sec. Mid ICA 87/23 cm/sec. Mid ICA 189/31 cm/sec. Dist ICA 52/17 cm/sec. Dist ICA 257/60 cm/sec. Rt. ICA/CCA = 1.2. Lt. ICA/CCA = 3.6. Prox ECA 170/38 cm/sec. Prox ECA 498/66 cm/sec. Rt. Vert. 78/24 cm/sec. Lt. Vert. 34/13 cm/sec. Right Extracranial There is homogeneous, smooth atherosclerotic plaque noted in the right common carotid artery. There is heterogeneous, irregular atherosclerotic plaque noted in the right internal carotid artery. There is heterogeneous, irregular atherosclerotic plaque noted in the right external carotid artery. Antegrade flow is noted in the right vertebral artery. There is heterogeneous, irregular atherosclerotic plaque noted in the right bulb. Left Extracranial There is heterogeneous, irregular atherosclerotic plaque noted in the left common carotid artery. There is homogeneous, smooth atherosclerotic plaque noted in the left common car otid artery. There is heterogeneous, irregular atherosclerotic plaque noted in the left internal carotid artery. The left internal carotid artery is very tortuous. There is heterogeneous, irregular atherosclerotic plaque noted in the left external carotid artery. Antegrade flow is noted in the left vertebral artery. There is heterogeneous, irregular atherosclerotic plaque noted in the left bulb. Procedure Carotid Duplex 17541. The study was technically difficult. Exam performed in department. Interpretation Summary Irregular calcific plaque of the proximal right internal carotid artery with less than 50% stenosis. <50% stenosis right external carotid Irregular calcific plaque left mid common carotid Irregular calcific plaque of the proximal left internal carotid with >70% stenosis and tortuosity noted Irregular plague noted within the left carotid bulb >50% stenosis left external carotid Patent and antegrade vertebrals bilaterally Ordering Physician: Vivian Stone Referring Physician: VIVIAN MORALES Performed By: Vanessa Bhandari, NADER, RVT 12/09/19 1121 Date Dami Chapin MD ROS General General: No weight change, appetite, fatigue, colon cancer, breast cancer or weakness HEENT HEENT: No difficulty swallowing, eye injury, eye surgery, swollen glands or hoarseness Endo Endocrine: No thyroid disease, diabetes mellitus, thyroid cancer, Hair loss, heat intolerance or cold intolerance Skin Skin: No rash or changing moles Breast Breast: No left breast lump, right breast lump, nipple discharge, breast pain, abnormal mammogram, abnormal US or breast enlargement Musc Musculoskeletal: No back problems, arthritis, rheumatoid arthritis, gout or joint pain Cardio Cardiovascular: Yes high blood pressure; no murmur, pacemaker, heart disease, atrial fibrillation, heart attack, heart stent, palpitations, shortness of breat with exertion or chest pain Psych Psychiatric: No depression, anxiety or hearing voices Resp Respiratory: No shortness of breath, No sleep apnea, No cough, No COPD, No asthma, No emphysema, No wheezing Gastro Gastrointestinal: No abdominal pain, No nausea or vomiting, No diarrhea, No constipation, No blood in stool, No acid reflux, No hemorrhoids, No ulcers, No gallbladder problem, No black,tarry stools Yash Hematologic: No blood thinners, No blood disorders, No bleeding, No anemia, No blood clots Neuro Neurologic: No system reviewed and no additional complaints, except as docu, No as per HPI, No abnormal walking, No abnormal hearing, No abnormal movements, No abnormal speech, No behavioral changes, No burning sensations, No confusion, No seizure-like activity, No unsteadiness, No dizziness, No localized weakness, No frequent falls, No headache(s), No lack of coordination, No loss of vision, No memory loss, No numbness, No other visual disturbances, No radiating pain, No restless legs, No sensory deficit, No fainting, No tingling, No tremor(s), No weakness, No other Exam Chest Breast Palpation: No nipple discharge Cardio Heart Sounds: no murmurs Assessment & Plan Problems 1. Stenosis of left carotid artery I65.22 2. Abdominal aortic aneurysm (AAA) without rupture I71.4 Plan Today was a 20-minute [id number] consultative appointment. I discussed the CTA findings. I do not believe that he has 70% stenosis of the right carotid. I believe that the calcific plaque present on CT is causing an over estimation of the degree of narrowing. I do believe however that he has at least 60% stenosis of the left internal carotid possibly closer to the 70% as suggested on carotid duplex. However he is asymptomatic. The finding was a Hollenhorst plaque on the left. He is 84 years of age. He has a newly diagnosed identified 3.9 cm abdominal aortic aneurysm. This also is asymptomatic. The patient was accompanied by his son today After discussion of treatment options he is aware that I cannot get him to 0% risk regarding his carotid stenosis nor his abdominal aortic aneurysm. I am not advising abdominal aortic aneurysm repair at this time. I provided him a recommended diameter for repair at 5 to 5.5 cm. Given an expected growth of 0.5 cm/year then at 1 year his aneurysm ostensibly should be close to 4.4 cm. I recommend abdominal aortic duplex imaging at 1 year The patient has just been initiated on statin medication. The local incidence of COVID-19 is currently increasing. I recommend to him ongoing medical maximization of his care. I recommend that we obtain carotid duplex imaging at 6 months. Hopefully the pandemic will be better managed at that time with hopefully a vaccine available. Currently at this time national incidence is significantly increasing. The patient and his son have had an opportunity to ask and have questions answe red. If the patient were to become symptomatic he has been instructed to urgently go to the emergency room for treatment. As noted he is asymptomatic currently from both the carotid stenosis and the abdominal aortic aneurysm. I have provided advice regarding physical activity. I do not believe that he should do heavy lifting and straining of furniture. We will obtain carotid duplex imaging 6 months with very careful attention to the left carotid. We will obtain aortic duplex exam in 1 year for follow-up of his infrarenal abdominal aortic aneurysm. Copy: Dr. Vivian Morales and Dr. Vivian Chapin M.D., F.A.C.S. Orders Orders: Abd Aortic/IVC Duplex scan 12/25/20 I71.4 Carotid Duplex Ultrasound 06/23/20 I65.29 Coding Level of Care Code Off vis,est,level 2 Diagnoses Stenosis of left carotid artery I65.22 ??Laterality: left Abdominal aortic aneurysm (AAA) without rupture I71.4 ??Presence of rupture: without rupture Past Medical History Past Medical History (Chronic Problems): Chronic Problems (Last Reviewed 12/26/19 @ 13:29 by Vicenta Owens) Hyperlipidemia (Chronic) Hypertension (Chronic) Medical History: Medical History (Last Reviewed 12/26/19 @ 13:29 by Vicenta Owens) Abdominal aortic aneurysm (AAA) (Acute) I71.4 Hyperlipidemia (Chronic) E78.5 Hypertension (Chronic) I10 Carotid stenosis (Acute) I65.29 Allergies No Known Allergies Allergy (Verified 03/27/20 12:36) Home Medications: Ambulatory Orders Medication Instructions Recorded aspirin 81 mg tablet,delayed 81 mg PO DAILY 12/13/19 release calcium carbonate 600 mg calcium 600 mg PO QODAY 12/13/19 (1,500 mg) tablet cetirizine 10 mg tablet 10 mg PO DAILY PRN PRN 12/13/19 guaifenesin 600 mg tablet, 600 mg PO Q12H PRN 12/13/19 extended release 12 hr lisinopril 30 mg tablet 30 mg PO DAILY 12/13/19 spironolactone 25 mg tablet 25 mg PO DAILY 12/13/19 vit C,E,zinc,copper-jlxck0q 250 1 cap PO DAILY 12/13/19 mg-lutein 5 mg-zeaxanthin 1 mg capsule atorvastatin 10 mg tablet 10 mg PO QODAY tab 12/26/19 Surgical History: Surgical History (Last Reviewed 12/26/19 @ 13:29 by Vicenta Owens) History of tonsillectomy and adenoidectomy Z98.890 Surgical History: tonsillectomy Psychiatric History: No pertinent psych hx Lives: Spouse/ Significant Other, With Family Smoking Status: Never smoker Tobacco Use: Non-smoker Alcohol: None Drugs: None - *Family History Maternal Family History: Family History (Last Reviewed 12/26/19 @ 13:29 by Viecnta Owens) Mother CVA (cerebral vascular accident) History Items: Stroke - Brain aneurysm, - Paternal Family History: Family History (Last Reviewed 12/26/19 @ 13:29 by Vicenta Owens) Mother CVA (cerebral vascular accident) History Items: No pertinent history Review of Systems Constitutional: Denies: Fever, Night Sweats Eyes: Denies: Blurred vision HEENT: Denies: Difficulty Swallowing Cardiovascular: Denies: Chest Pain Respiratory: Denies: Cough, Shortness of Breath Gastrointestinal: Reports: Nausea, Vomiting. Denies: Abdominal Pain Psychiatric: Denies: Anxiety Endocrine: Denies: Change in Body Habitus Patient Problems: Active and Suspected Problems (Last Reviewed 12/26/19 @ 13:29 by Vicenta Owens) TIA (transient ischemic attack) (Acute) Lactic acidosis (Acute) Abdominal aortic aneurysm (AAA) (Acute) Carotid stenosis (Acute) - Physical Exam Vitals/I&O's: Vital Signs Temp Pulse Resp BP Pulse Ox 98.7 F 57 L 18 126/68 H 95 03/28/20 02:00 03/28/20 02:59 03/28/20 02:00 03/28/20 02:00 03/28/20 02:00 Oxygen Delivery Method Room Air Weight: 194 lb 7.163 oz Body Mass Index (BMI) 27.8 Finger Stick Blood Glucose 111 Intake and Output for Last 24 Hours 03/26/20 03/27/20 03/28/20 23:59 23:59 23:59 Intake Total 1720 / 1720 1000 / 1000 Balance 1720 / 1720 1000 / 1000 General: Alert, Oriented x3, Cooperative, No apparent distress HEENT: Atraumatic Lungs: Clear to auscultation, Normal air movement Cardiovascular: Regular rate, Regular Rhythm Abdomen: Soft, Non Tender Psych/Mental Status: Normal Affect Microbiology Past 72 Hours 03/27/20 13:15 Mucosa - Nose SARS-CoV-2 Antigen (Rapid) - Final Laboratory Results 03/27/20 13:15: WBC 14.3 H, RBC 4.45 L, Hgb 14.8, Hct 41.9, MCV 94.2 H, MCH 33.3 H, MCHC 35.3, RDW Std Deviation 46.9 H, RDW Coeff of Britt 13.4, Plt Count 274, MPV 9.6, Immature Gran % (Auto) 0.600, Neut % (Auto) 91.2 H, Lymph % (Auto) 4.8 L, Grant % (Auto) 3.0, Eos % (Auto) 0.0, Baso % (Auto) 0.4, Absolute Neuts (auto) 13.0 H, Absolute Lymphs (auto) 0.69 L, Nucleated RBC % 0 03/27/20 13:15: Sodium 136, Potassium 4.7, Chloride 104, Carbon Dioxide 27.0, Anion Gap 5, BUN 23 H, Creatinine 1.38 H, Estim Creat Clear Calc 39.14, Est GFR (MDRD) Af Amer 63, Est GFR (MDRD) Non-Af 52 L, BUN/Creatinine Ratio 16.7, Glucose 125 H, Calcium 9.1, Total Bilirubin 0.50, AST 17, ALT 29, Alkaline Phosphatase 55, Troponin I < 0.015, Total Protein 7.1, Albumin 4.0, Globulin 3.1, Albumin/Globulin Ratio 1.3 03/27/20 13:15: Lactic Acid 2.8 H* 03/27/20 13:15: Hemoglobin A1c 6.1 H 03/27/20 13:21: POC Glucose 111 H 03/27/20 14:00: Urine Color Yellow, Urine Clarity Clear, Urine pH 6.5, Ur Specific [place] 1.010, Urine Protein 100 H, Urine Glucose (UA) Normal, Urine Ketones 5 H, Urine Occult Blood 50 H, Urine Nitrite Negative, Urine Bilirubin Negative, Urine Urobilinogen Normal, Ur Leukocyte Esterase Negative, Urine RBC 0-5 SEEN, Urine WBC 0 SEEN, Ur Squamous Epith Cells 0-5 SEEN, Urine Bacteria 0 SEEN, Urine Mucus 0 SEEN 03/27/20 18:26: Lactic Acid 1.2 03/27/20 18:26: Troponin I < 0.015 03/28/20 05:50: WBC Pending, RBC Pending, Hgb Pending, Hct Pending, MCV Pending, MCH Pending, MCHC Pending, RDW Std Deviation Pending, RDW Coeff of Britt Pending, Plt Count Pending, Neut % (Auto) Pending, Absolute Neuts (auto) Pending 03/28/20 05:50: Sodium Pending, Potassium Pending, Chloride Pending, Carbon Dioxide Pending, Anion Gap Pending, BUN Pending, Creatinine Pending, Est GFR (MDRD) Af Amer Pending, Est GFR (MDRD) Non-Af Pending, BUN/Creatinine Ratio Pending, Glucose Pending, Calcium Pending, Total Bilirubin Pending, AST Pending, ALT Pending, Alkaline Phosphatase Pending, Total Protein Pending, Albumin Pending, Triglycerides Pending, Cholesterol Pending, LDL Cholesterol Pending, VLDL Cholesterol Pending, HDL Cholesterol Pending Current Medications Acetaminophen (Acetaminophen 325 Mg Tablet) 650 mg PO Q6H PRN PRN PRN Reason: Pain Score 1-10/Temp > 100.7 F Albuterol Sulfate (Albuterol 2.5 Mg/3 Ml Vial.Neb.) 2.5 mg INHALATION Q2H PRN PRN PRN Reason: SOB/Wheezing Aspirin (Aspirin E.C. 81 Mg Tablet) [facility] Atorvastatin Calcium (Atorvastatin Calcium 40 Mg Tablet) 40 mg PO QODAY@2200 [facility] Last Admin: 03/27/20 22:13 Dose: 40 mg Documented by: Calcium Carbonate (Calcium Carbonate 500 Mg Tablet) 500 mg PO QODAY@0800 [facility] Clopidogrel Bisulfate (Clopidogrel Bisulfate 75 Mg Tablet) 75 mg PO DAILY [facility] Last Admin: 03/27/20 22:13 Dose: 75 mg Documented by: Heparin Sodium (Porcine) (Heparin Injection (Vial) 5,000 Unit/Ml Vial) 5,000 unit SC Q8 [facility] Last Admin: 03/27/20 22:13 Dose: 5,000 unit Documented by: Hydralazine HCl (Hydralazine 20 Mg/Ml Vial) 5 mg IV Q4H PRN PRN PRN Reason: BLOOD PRESSURE Sodium Chloride (0.9% Saline Lock 10 Ml Syringe) 10 - 40 ml IV UD PRN PRN Reason: SALINE FLUSH Assessment/Plan All Active Problems (Last Reviewed 12/26/19 @ 13:29 by Vicenta Owens) TIA (transient ischemic attack) (Acute) Lactic acidosis (Acute) Abdominal aortic aneurysm (AAA) (Acute) Carotid stenosis (Acute) Medications currently include aspirin and newly added clopidogrel and increased atorvastatin. Teleneurology consultation was obtained recommending carotid intervention in less than 2 weeks. There are recommendations present for cardiology evaluation. At this point the patient is converted from asymptomatic to symptomatic left carotid stenosis. I propose for him a left carotid endarterectomy with patch angioplasty. I would like to have his son available to discuss these features. I will arrange for him to have an office appointment very soon after discharge and further medicine work-up. He will need to be cleared from medicine standpoint and cardiac standpoint to proceed with surgery. I do have concerns regarding the patient's admission leukocytosis and lactic acidosis. Etiology needs to be clarified. I appreciate the opportunity of assisting with her surgical care. We should be able to schedule him for intervention in the very near future pending ongoing medical evaluation. Dami Chapin M.D., F.A.C.S.
[2020-03-28] MEDS: Heparin Injection (Vial) 5,000 UNIT/ML VIAL 5000 UNIT SC (06:10)
[2020-03-28 06:34] LABS: ALB/GLOB Ratio 1.2 RATIO (0.9-2.4); AST(SGOT) 17 U/L (15-37); Alanine Aminotransfer ALT/SGPT 25 U/L (16-61); Albumin, Serum 3.4 g/dL (3.2-5.0); Alkaline Phosphatase 46 U/L (45-117); Anion Gap 4 (5-15); BUN 22 mg/dL (7-18); BUN/Creat Ratio 16.4 RATIO (10-20); Calcium,Total 8.5 mg/dL (8.5-10.1); Chloride 105 mmol/L (98-107); Cholesterol 116 mg/dL (200); Creatinine, Serum 1.34 mg/dL (0.70-1.30); EST Glomerular Filtration Rate 54 mL/min (>60); Est Glom Filt Rate - Afr Amer 65 mL/min (>60); Estimated Creatinine Clearance 41.61 ml/min; Globulin 2.9 g/dL (2.2-4.2); Glucose 126 mg/dL (74-106); High Density Lipoprotein 34 mg/dL; Potassium 4.3 mmol/L (3.5-5.1); Protein, Total 6.3 g/dL (6.4-8.2); Sodium Level 136 mmol/L (136-145); Triglycerides 173 mg/dL; Very Low Density Lipoprotein 35 mg/dL (5-40)
[2020-03-28] MEDS: Clopidogrel Bisulfate 75 MG Tablet PO (09:34)
[2020-03-28] MEDS: Calcium Carbonate 500 MG Tablet PO (09:34)
[2020-03-28] MEDS: Aspirin E.C. 81 MG Tablet PO (09:34)
[2020-03-28] MEDS: 0.9% Saline Lock 10 ML Syringe IV (09:35)
--- NOTE | 2020-03-28 09:45 | CASEMGMT ---
SW completed a PHQ 9 with patient as he had a Stroke. He scored a 0. He declined need for counseling resources. Nhung MARTIN MSW
--- NOTE | 2020-03-28 14:02 | PCM.DC ---
- Discharge Diagnoses Current Active Problems: Current Active and Chronic Problems (Last Reviewed 12/26/19 @ 13:29 by Vicenta Owens) TIA (transient ischemic attack) (Acute) Lactic acidosis (Acute) Abdominal aortic aneurysm (AAA) (Acute) Hyperlipidemia (Chronic) Hypertension (Chronic) Carotid stenosis (Acute) You will use the following diet at home:: Cardiac Your food should be the consistency of: Regular Your liquids should be the consistency of: Regular/Thin Discharge Activity: Return to Normal Activity Call your doctor if you observe: - - confusion, difficulty speaking, unilateral weakness Instructions: Effects of a Stroke on the Brain and Body, Symptoms of Stroke, What Is Ischemic Stroke?, Stroke: Taking Medications Allergies/Adverse Reactions: Allergies No Known Allergies Allergy (Verified 03/27/20 12:36) Medications to take at Discharge aspirin 81 mg tablet,delayed release 81 mg PO DAILY 12/13/19 calcium carbonate 600 mg calcium (1,500 mg) tablet 600 mg PO QODAY 12/13/19 cetirizine 10 mg tablet 10 mg PO DAILY PRN PRN 12/13/19 guaifenesin 600 mg tablet, extended release 12 hr 600 mg PO Q12H PRN 12/13/19 lisinopril 30 mg tablet 30 mg PO DAILY 12/13/19 spironolactone 25 mg tablet 25 mg PO DAILY 12/13/19 vit C,E,zinc,copper-xvrce6d 250 mg-lutein 5 mg-zeaxanthin 1 mg capsule 1 cap PO DAILY 12/13/19 Atorvastatin Calcium [Lipitor] 40 mg PO QODAY@2200 #30 tab 03/28/20 The following prescriptions were given: Atorvastatin Calcium [Lipitor] 40 mg PO QODAY@2200 #30 tab Transmission Status: Pending to [facility] Primary Care Physician: Wallace Vora MD [Primary Care Provider] - Within 2 Weeks Test Results: Test results from this visit will be discussed in further detail at your follow-up appointment, if applicable. Please Follow Up With: Roddy Chapin MD - Vascular surgery When: Already scheduled for 03/30/2020 (office visit) and 04/02/2020 (surgery) Please Follow Up With: Toro Pena MD - Neurology When: 1-2 months Proposed Discharge Date: 03/28/20
--- NOTE | 2020-03-28 14:05 | DS.PCM_ITS ---
Discharge Date and Diagnosis - Problem List Patient Problems: Active and Suspected Problems (Last Reviewed 12/26/19 @ 13:29 by Vicenta Owens) TIA (transient ischemic attack) (Acute) Lactic acidosis (Acute) Abdominal aortic aneurysm (AAA) (Acute) Carotid stenosis (Acute) Date of Admission: 03/27/20 Date of Discharge: 03/28/20 - Primary Discharge Diagnosis Acute Problems: Active Problems (Last Reviewed 12/26/19 @ 13:29 by Vicenta Owens) CVA - Secondary Discharge Diagnosis Chronic Problems: Chronic Problems (Last Reviewed 12/26/19 @ 13:29 by Vicenta Owens) Hyperlipidemia (Chronic) Hypertension (Chronic) Hospital Course and Treatment Imaging Results: Clinical Impression(s) from Imaging Studies Brain CT 03/27/20 12:46 IMPRESSION: Chronic involutional changes of the brain. Electronically Signed: Hardy Casas MD at 13:50 EST , Service support , Chest X-Ray 03/27/20 13:15 IMPRESSION: Mild degree of increased linear markings at the lung bases suggestive of linear atelectasis and/or scarring. Electronically Signed: Hardy Casas MD at 13:42 EST , Service support , Brain MRI 03/27/20 17:44 IMPRESSION: Mild atrophy and periventricular white matter ischemic changes. Multiple punctate foci of acute white matter ischemia within the left frontal and parietal lobes in distribution of left middle cerebral artery Electronically Signed: Wallace Saxena MD at 19:18 EST , Service support , ADDENDUM: 03/27/201953 IMPRESSION: Mild atrophy and periventricular white matter ischemic changes. Multiple punctate foci of acute white matter ischemia within the left frontal and parietal lobes in distribution of left middle cerebral artery N.B. : The above information has been verbally conveyed by Wallace Saxena MD to Dr. Sydney Terry MD, on 03/27/2020 19:47:56 (ET). Electronically Signed: Wallace Saxena MD at 19:18 EST , Service support , Roddy Chapin, vascular surgery Operations: None Procedures: 2-D Echocardiogram Summary of Care Provided: The patient is a 85 year old M resents with acute confusion. Patient previously had been diagnosed with carotid stenosis. Patient presented and underwent a stroke evaluation. 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 Patient was seen by Dr. Roddy Chapin given the patient's acute strokes as well as carotid stenosis. Plan is to follow-up with Dr. Myers on the for an office visit and then for the patient undergo a left carotid endarterectomy on . Patient was also seen by [facility]. Patient was on aspirin and clopidogrel while he was here. The clopidogrel will be discontinued as the surgery is planned for the . Patient will continue with aspirin as well as atorvastatin, the atorvastatin will be increased from 10 to 40mg daily. Patient is symptom-free at this time in regards to his stroke. Patient will continue with aspirin and after completion of the carotid endarterectomy as well. Would recommend patient follow-up with neurology as outpatient and information provided. For unknown reason, patient did have a lactic acid performed when he presented to the emergency room and it was elevated at 2.8. Subsequent lactic acid was down to 1.2. There is no evidence of any infection nor was the patient hypoxic. Regards to the etiology of lactic acid elevation it is unclear but does not warrant further evaluation as patient is asymptomatic from the lactic acidosis. I do not feel the lactic acid elevation was related with his stroke. No additional work-up for the lactic acidosis is needed as there was never any clear indication for the be checked in the first placed. Patient did have an echocardiogram for the stroke evaluation showed an EF of 65%. Otherwise unremarkable. No evidence of source of stroke coming from his echocardiogram. From medical perspective, patient is medically stable and optimized to undergo a carotid endarterectomy. [] Patient Problems: Active and Suspected Problems (Last Reviewed 12/26/19 @ 13:29 by Vicenta Owens) TIA (transient ischemic attack) (Acute) Lactic acidosis (Acute) Abdominal aortic aneurysm (AAA) (Acute) Carotid stenosis (Acute) - Physical Exam Vitals/I&O's: Vital Signs Temp Pulse Resp BP Pulse Ox 36.7 C 63 16 129/58 H 99 03/28/20 09:30 03/28/20 09:30 03/28/20 09:30 03/28/20 09:30 03/28/20 09:30 Oxygen Delivery Method Room Air Weight: 88.2 kg Body Mass Index (BMI) 27.8 Finger Stick Blood Glucose 111 Intake and Output for Last 24 Hours 03/26/20 03/27/20 03/28/20 23:59 23:59 23:59 Intake Total 1720 / 1720 1620 / 1620 Balance 1720 / 1720 1620 / 1620 General: Alert, No apparent distress HEENT: Atraumatic, Normocephalic Oral: Moist Mucosa, No Gingival or Mucosal Lesions/ Ulcerations Neck: No Nodes, Thyroid Normal Size and Texture Lungs: Clear to auscultation, Normal air movement, No rhonchi, No wheeze Cardiovascular: Regular rate, Regular Rhythm, Normal S1, Normal S2 Abdomen: Bowel Sounds Present, Soft, Non Tender, Non-Distended Extremities: No edema, No Calf Tenderness Skin: No rashes, No breakdown Neurological: Cranial nerves II-XII grossly intact, Motor Exam 5/5 strength throughout, Coordination normal Microbiology Past 72 Hours 03/27/20 13:15 Mucosa - Nose SARS-CoV-2 Antigen (Rapid) - Final Laboratory Results 03/27/20 13:15: Hemoglobin A1c 6.1 H 03/27/20 14:00: Urine Color Yellow, Urine Clarity Clear, Urine pH 6.5, Ur Specific [place] 1.010, Urine Protein 100 H, Urine Glucose (UA) Normal, Urine Ketones 5 H, Urine Occult Blood 50 H, Urine Nitrite Negative, Urine Bilirubin Negative, Urine Urobilinogen Normal, Ur Leukocyte Esterase Negative, Urine RBC 0-5 SEEN, Urine WBC 0 SEEN, Ur Squamous Epith Cells 0-5 SEEN, Urine Bacteria 0 SEEN, Urine Mucus 0 SEEN 03/27/20 18:26: Lactic Acid 1.2 03/27/20 18:26: Troponin I < 0.015 03/28/20 05:50: WBC 10.2, RBC 3.99 L, Hgb 12.9 L, Hct 39.0 L, MCV 97.7 H, MCH 32.3 H, MCHC 33.1 D, RDW Std Deviation 49.2 H, RDW Coeff of Britt 13.6, Plt Count 221, MPV 8.5, Immature Gran % (Auto) 0.300, Neut % (Auto) 86.4 H, Lymph % (Auto) 7.5 L, [place] % (Auto) 4.7, Eos % (Auto) 0.5, Baso % (Auto) 0.6, Absolute Neuts (auto) 8.8 H, Absolute Lymphs (auto) 0.77 L, Nucleated RBC % 0 03/28/20 05:50: Sodium 136, Potassium 4.3, Chloride 105, Carbon Dioxide 27.0, Anion Gap 4 L, BUN 22 H, Creatinine 1.34 H, Estim Creat Clear Calc 41.61, Est GFR (MDRD) Af Amer 65, Est GFR (MDRD) Non-Af 54 L, BUN/Creatinine Ratio 16.4, Glucose 126 H, Calcium 8.5, Total Bilirubin 0.60, AST 17, ALT 25, Alkaline Phosphatase 46, Total Protein 6.3 L, Albumin 3.4, Globulin 2.9, Albumin/Globulin Ratio 1.2, Triglycerides 173, Cholesterol 116, LDL Cholesterol 47, VLDL Cholesterol 35, HDL Cholesterol 34 L Current Medications Acetaminophen (Acetaminophen 325 Mg Tablet) 650 mg PO Q6H PRN PRN PRN Reason: Pain Score 1-10/Temp > 100.7 F Albuterol Sulfate (Albuterol 2.5 Mg/3 Ml Vial.Neb.) 2.5 mg INHALATION Q2H PRN PRN PRN Reason: SOB/Wheezing Aspirin (Aspirin E.C. 81 Mg Tablet) [facility] Last Admin: 03/28/20 09:34 Dose: 81 mg Documented by: Atorvastatin Calcium (Atorvastatin Calcium 40 Mg Tablet) 40 mg PO QODAY@2200 ON LICENSE OF [facility] Last Admin: 03/27/20 22:13 Dose: 40 mg Documented by: Calcium Carbonate (Calcium Carbonate 500 Mg Tablet) 500 mg PO QODAY@0800 ON LICENSE OF [facility] Last Admin: 03/28/20 09:34 Dose: 500 mg Documented by: Clopidogrel Bisulfate (Clopidogrel Bisulfate 75 Mg Tablet) 75 mg PO DAILY ON LICENSE OF [facility] Last Admin: 03/28/20 09:34 Dose: 75 mg Documented by: Heparin Sodium (Porcine) (Heparin Injection (Vial) 5,000 Unit/Ml Vial) 5,000 unit SC Q8 DANIEL Last Admin: 03/28/20 06:10 Dose: 5,000 unit Documented by: Hydralazine HCl (Hydralazine 20 Mg/Ml Vial) 5 mg IV Q4H PRN PRN PRN Reason: BLOOD PRESSURE Sodium Chloride (0.9% Saline Lock 10 Ml Syringe) 10 - 40 ml IV UD PRN PRN Reason: SALINE FLUSH Last Admin: 03/28/20 09:35 Dose: 10 ml Documented by: Discharge Diet: Low fat/ Low Cholesterol Discharge Activity: Return to Normal Activity Call your doctor if you observe: - - confusion, difficulty speaking, unilateral weakness Home Medications: Medications to take at Discharge aspirin 81 mg tablet,delayed release 81 mg PO DAILY 12/13/19 calcium carbonate 600 mg calcium (1,500 mg) tablet 600 mg PO QODAY 12/13/19 cetirizine 10 mg tablet 10 mg PO DAILY PRN PRN 12/13/19 guaifenesin 600 mg tablet, extended release 12 hr 600 mg PO Q12H PRN 12/13/19 lisinopril 30 mg tablet 30 mg PO DAILY 12/13/19 spironolactone 25 mg tablet 25 mg PO DAILY 12/13/19 vit C,E,zinc,copper-bjlgs3d 250 mg-lutein 5 mg-zeaxanthin 1 mg capsule 1 cap PO DAILY 12/13/19 Atorvastatin Calcium [Lipitor] 40 mg PO QODAY@2200 #30 tab 03/28/20 Following Prescriptions Were Given to Patient: Atorvastatin Calcium [Lipitor] 40 mg PO QODAY@2200 #30 tab Transmission Status: Pending to [facility] Primary Care Physician: Wallace Vora MD [Primary Care Provider] - Within 2 Weeks Please Follow Up With: Roddy Chapin MD - Vascular surgery When: Already scheduled for 03/30/2020 (office visit) and 04/02/2020 (surgery) Please Follow Up With: Toro Pena MD - Neurology When: 1-2 months Patient Instructions: Effects of a Stroke on the Brain and Body, Symptoms of Stroke, What Is Ischemic Stroke?, Stroke: Taking Medications Disposition: Home Minutes spent on discharge:: 36 Patient Condition:: Good Medical Necessity - Tobacco Use Smoking Status: Never smoker Tobacco Use: Non-smoker Meaningful Use Info Meaningful Use Diagnoses (Choose all that apply): Ischemic CVA - CVA Therapy Assessed for PT,OT and/or ST?: Yes - Ischemic Stroke Antithrombotic order at d/c?: Yes Dx of Atrial fib/flutter?: No Anticoagulant at discharge?: No Reason anticoagulant not ordered: Treatment not Indicated Statins at discharge?: Yes Primary Dx Acute Ischemic CVA?: Yes IV tPA ordered during stay?: No Reason IV t-PA not ordered: Treatment not Indicated OBSV E&M: 37749 Observation care discharge
--- NOTE | 2020-03-28 14:09 | CASEMGMT ---
therapy states pt has no need for any further skilled therapy at this time and pt states that he is 'back to normal' and has no further needs at this time. Zahra OLIVEROS CM
== END 2020-03-28 14:04 | disposition home or self-care (01) ==
LOC: ED 15:51 → PCU 16:09
PROVIDERS: Admitting Provider Internal Medicine; Emergency Provider Emergency Medicine; PCP Family Medicine
DX: I63.9 Cerebral infarction, unspecified (principal); E87.2 Acidosis; G93.41 Metabolic encephalopathy; I45.10 Unspecified right bundle-branch block; E78.5 Hyperlipidemia, unspecified; I10 Essential (primary) hypertension; Z87.891 Personal history of nicotine dependence; Z79.82 Long term (current) use of aspirin; Z79.899 Other long term (current) drug therapy; I65.23 Occlusion and stenosis of bilateral carotid arteries
CPT/HCPCS: 36415; 70450; 70551; 71045; 80053; 80061; 81001; 82962; 83036; 83605; 84484; 85025; 87426; 93005; 93306; 93880; 96360; 96361; 96372; 97161; 97166; 97802; 99218; 99285; J7030; Q9957; A4216; C8929; G0378

== ENCOUNTER 2020-04-02 09:21 | Inpatient (IN) | payer MEDICARE, BC, SELFPAY ==
[2020-03-28 05:00] VITALS: BMI 27.8
[2020-03-30 12:06] VITALS: BMI 27.1
[2020-04-02] VITALS (20 sets, daily range): BP systolic 103–152; BP diastolic 48–86; PULSE 87–118; RESP 15–18; TEMP 36.3–36.9; O2SAT 94–100; BMI 26.9; BMI 27.0
--- NOTE | 2020-04-02 | PLAQ_PTH ---
[id number] U#:[id number] AGE/SX: 85/M ROOM: [facility] RE04/02/[address]: Dr. Luciano Mar MD : 1935 BED: 1 DIS: 04/03/2020 SPEC #: [id number] RECD: 04/02/20 15:49 STATUS: ALAN REQ #: [id number] BRYAN: 04/02/20 00:[address]: Dami Chapin DEPT: SURGICAL PATHOLOGY RECD BY: Calixto Patten ENTERED: 04/03/20 07:46 SP TYPE: PLAQUE OTHR DR: MD Dr. Wallace Benjamin MD Dr. Mark Tereletsky, DO Dr. Robert D Cebul, MD Tissues: PLAQUE Procedures: Decalcification bone/plaque Surgery Specimen Level III Comments: @ Ordering doctor for DEC edited from to DR.RCEBUL Susie MANZANARES at 04/03/20 1316 @ Ordering doctor for SUIII edited from to @ bryon MANZANARES at 04/03/20 1316 @ Submitting doctor edited from to @ bryon MANZANARES at 04/03/20 1316 HEADER OPERATION: Carotid endarterectomy with patch angioplasty PRE-OP DIAGNOSIS: Symptomatic critical stenosis left extracranial internal carotid artery TISSUE SUBMITTED: Carotid plaque, left MICROSCOPIC DIAGNOSIS Left carotid plaque, endarterectomy: Calcified atheromatous plaque consistent with severe stenosis. AM:lien 04/06/2020 GROSS DESCRIPTION Received in fixative is one container labeled with the patient's name and designated carotid plaque, left. The specimen consists of previously opened two tubular pieces of garcia-light yellow, indurated tissue measuring 2.5 cm in length and 1 cm in diameter and 2.5 cm in length and 1.2 cm in diameter. Sections cut with gritty sensation. Flat Finisher sections are submitted in one cassette after decalcification. / SJ:lien 04/03/20 TC:5 CPT: 52071, 88813
--- NOTE | 2020-04-02 10:22 | PCM.HP.BLA ---
Problem List (1) TIA (transient ischemic attack) Status: Acute (2) Carotid stenosis Status: Acute Qualifiers: History and Physical Date of Admission: 04/02/20 Intake Visit Reasons: discuss left CEA Chief Complaint: Lactic Acidosis/Possible TIA Allergies No Known Allergies Allergy (Verified 03/30/20 12:09) Medications aspirin 81 mg tablet,delayed release 81 mg PO DAILY 12/13/19 [History Confirmed 03/30/20] calcium carbonate 600 mg calcium (1,500 mg) tablet 600 mg PO QODAY 12/13/19 [History Confirmed 03/30/20] cetirizine 10 mg tablet 10 mg PO DAILY PRN PRN 12/13/19 [History Confirmed 03/30/20] guaifenesin 600 mg tablet, extended release 12 hr 600 mg PO Q12H PRN 12/13/19 [History Confirmed 03/30/20] lisinopril 30 mg tablet 30 mg PO DAILY 12/13/19 [History Confirmed 03/30/20] spironolactone 25 mg tablet 25 mg PO DAILY 12/13/19 [History Confirmed 03/30/20] vit C,E,zinc,copper-pvmnr9n 250 mg-lutein 5 mg-zeaxanthin 1 mg capsule 1 cap PO DAILY 12/13/19 [History Confirmed 03/30/20] Atorvastatin Calcium [Lipitor] 40 mg PO QODAY@2200 03/29/20 [History Confirmed 03/30/20] Clopidogrel Bisulfate [Clopidogrel] 75 mg PO DAILY 03/29/20 [History Confirmed 03/30/20] PFSH Medical History TIA (transient ischemic attack) (Acute) Lactic acidosis (Acute) Abdominal aortic aneurysm (AAA) (Acute) Hyperlipidemia (Chronic) Hypertension (Chronic) Carotid stenosis (Acute) Surgical History History of tonsillectomy and adenoidectomy (Acute) Family History Mother CVA (cerebral vascular accident) Social History (Updated 03/30/20 @ 12:[address] Dami Chapin MD) Smoking Status: Former smoker alcohol intake: current alcohol intake frequency: a few times a month substance use type: does not use HPI HPI HPI: DAMI SANCHEZ, is a 85 M who presents to the office today for who was briefly hospitalized on March 28, 2020 with suspected left hemispheric TIA an embolic event in the middle cerebral artery territory. My consultation note from that day follows. The patient presents now with his son discussed treatment options. He also had an updated carotid duplex imaging exam. The updated carotid duplex exam does not seemingly demonstrate advancement of disease from his prior 1. He however now is quite symptomatic. In his discharge evaluation I do not see an etiology given for the patient's leukocytosis with left shift and mild lactic acidosis which resolved. Ongoing medical consultation will be pursued if the patient demonstrates ongoing medical concerns in this regard Problem List (1) TIA (transient ischemic attack) Status: Acute (2) Carotid stenosis Status: Acute Qualifiers: Laterality: left Qualified Code(s): I65.22 - Occlusion and stenosis of left carotid artery Reason for Consult Date of Consultation: 03/28/20 History of Present Illness: The patient is a 85 year old M been asked to see by Dr. Terry because of bilateral carotid stenosis now felt to be symptomatic on the left. He was admitted with confusion. Nausea vomiting. Denies Any Abdominal Pain. Of Note He Had a Leukocytosis with a White Count of 14,000 and a Left Shift with 90% Segs. Initial Lactic Acid Level Was Elevated at 2.8. Urinalysis does not appear to be remarkable. The patient states that he feels that he is back to baseline currently. He simply describes yesterday as being a day when he simply did not feel well. A head CT scan did not demonstrate acute event. A brain MRI however demonstrated the following: IMPRESSION: Mild atrophy and periventricular white matter ischemic changes. Multiple punctate foci of acute white matter ischemia within the left frontal and parietal lobes in distribution of left middle cerebral artery My notes from December 2019 reflect the following: Visit Reasons: carotid / AAA Chief Complaint: Carotid stenosis Wool Spotter Required: No Is patient in pain?: No Allergies No Known Allergies Allergy (Verified 12/26/19 13:30) Medications aspirin 81 mg tablet,delayed release 81 mg PO DAILY 12/13/19 [History Confirmed 12/26/19] calcium carbonate 600 mg calcium (1,500 mg) tablet 600 mg PO DAILY 12/13/19 [History Confirmed 12/26/19] cetirizine 10 mg tablet 5 mg PO DAILY PRN 12/13/19 [History Confirmed 12/26/19] guaifenesin 600 mg tablet, extended release 12 hr 600 mg PO Q12H PRN 12/13/19 [History Confirmed 12/26/19] lisinopril 30 mg tablet 30 mg PO DAILY 12/13/19 [History Confirmed 12/26/19] spironolactone 25 mg tablet 25 mg PO DAILY 12/13/19 [History Confirmed 12/26/19] vit C,E,zinc,copper-wiwoi6k 250 mg-lutein 5 mg-zeaxanthin 1 mg capsule 1 cap PO DAILY 12/13/19 [History Confirmed 12/26/19] atorvastatin 10 mg tablet 10 mg PO DAILY tab 12/26/19 [History Confirmed 12/26/19] PFSH Medical History Hyperlipidemia (Acute) Hypertension (Chronic) Carotid stenosis (Acute) Surgical History History of tonsillectomy and adenoidectomy (Acute) Family History Mother CVA (cerebral vascular accident) Social History (Updated 12/26/19 @ 14:[address] Dami Chapin MD) Smoking Status: Never smoker alcohol intake: current alcohol intake frequency: a few times a month substance use type: does not use HPI HPI HPI: DAMI SANCHEZ, is a 84 M who presents to the office today for surgical consultation regarding Hollenhorst plaque left eye and bilateral carotid stenosis. I previously saw this patient December 13, 2019. On clinical exam I was suspicious about an aortic aneurysm. The carotid duplex imaging had suggested a less than 50% stenosis of the right carotid and greater than 70% stenosis of the left internal carotid. My notes are located below. I subsequently requested a CTA of the carotids and a aortic duplex exam. The testing result is located below. The interpretation is 70% stenosis of the right internal carotid artery and 60% stenosis of the left internal carotid. On the patient's initial visit he was on aspirin 81 mg daily. He was not on a cholesterol medication. He has subsequently been initiated on atorvastatin 10 mg daily. He has remained asymptomatic. Neck CTA [facility] Services [address] [place] [address] CTA Neck W/WO Contrast MR#: [id number] Name: DAMI SANCHEZ [facility] #:[id number] : 1935M 84 From: True Cardenas MD PCP:Dr. Vivian Morales MD Status:REG CLI Study:CTA Neck W/WO Contrast Date of Exam:12/20/19 Exam#[id number] Ordering Dr: Dami Chapin MD STUDY: CTA NECK WITH CONTRAST REASON FOR EXAM: Male, 84 years old. carotid stenosis. hx of prostate ca RADIATION DOSAGE (If Supplied By Facility): CTDIvol = ( 41.23 ) mGy, DLP = ( 1082.76 ) mGycm TECHNIQUE: CT angiography with multi-detector data acquisition was performed from the aortic arch to the skull base following intravenous administration of IV 100ML ISOVUE 370. MIP images were reconstructed from the axial data set. Post-processing of the angiographic images was performed, with multiplanar reformation and 3D reconstruction. Individualized dose optimization techniques were used for this CT. COMPARISON: Carotid ultrasound 12/09/2019 FINDINGS: AORTIC ARCH: Normal visualized aortic arch. Calcified plaque is associated with a 50% stenosis of the origin of the left subclavian artery, with residual lumen diameter of 4 mm a poststenotic diameter of 8 mm. RIGHT CAROTID ARTERIES: Normal right common carotid artery (CCA). Heavy eccentric calcified bulb plaque with an associated 70% proximal ICA stenosis, with residual lumen diameter of 1.8 mm and poststenotic diameter of 6.2 mm. Normal origin of the right external carotid artery (ECA). LEFT CAROTID ARTERIES: Normal left common carotid artery (CCA). Eccentric calcified bulb plaque without proximal ICA stenosis. More distally, eccentric soft ICA plaque is associated with a focal stenosis of 60% stenosis with residual lumen diameter of 2.2 mm and poststenotic diameter of 4.9 mm. Normal origin of the left external carotid artery (ECA). VERTEBRAL ARTERIES: Normal bilateral vertebral arteries. 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 70% stenosis of the right proximal ICA. 60% stenosis of the left proximal ICA. NASCET criteria was used. Electronically Signed: True Cardenas MD at 22:55 EDT Tel , Service support , [facility] [address] [place] [address] Abd Aortic/IVC Duplex scan 12/22/19 0849 MR#: [id number] Name: DAMI SANCHEZ [facility] #:[id number] : 1935 84From: Dami Chapin MD Attending Dr: Dr. Dami Chapin, MDStatus: REG CLI Ordering Dr: Dami Chapin MDDate: 12/22/19 [facility] Ad[facility]: Reason For Study: AAA Aorta Measurements Aorta Doppler Measurements Proximal aorta measures1.44 x 1.57cm. in cross- Peak systolic flow velocities within the proximal sectional axis. aorta measure 53 cm/sec. Proximal aorta measures1.49cm. in longitudinal Peak systolic flow velocities within the mid aorta axis. measure 45.3 cm/sec. Mid aorta measures3.90 x 3.90cm. in cross- Peak systolic flow velocities within the distal sectional axis. aorta measure 44.5 cm/sec. Mid aorta measures3.86cm. in longitudinal axis. Distal aorta measures2.36 x 2.31cm. in cross- sectional axis. Distal aorta measures2.20cm. in longitudinal axis. Left Iliac Artery Left iliac artery measures 0.93 x 0.93 cm. in the cross-sectional axis. Left iliac artery measures 0.86 cm. in the longitudinal axis. Peak systolic velocity in the left iliac artery measures 142.4 cm/sec. Right Iliac Artery Right iliac artery measures 0.98 x 0.93 cm. in the cross-sectional axis. Right iliac artery measures 0.78 cm. in the longitudinal axis. Peak systolic velocity in the right iliac artery measures 138.1 cm/sec. Procedure Aorta IVC Iliac vasculature or bypass grafts 75611. Exam performed in department. Interpretation Summary 3.9 x 3.9 cm mid abdominal aortic aneurysm Left common iliac 0.93 x 0.93 cm Right common iliac 0.98 x 0.93 cm Ordering Physician: Dami Chapin Referring Physician: Vivian Morales Performed By: Caprice Pitt RVT and Student 12/22/19 1050 Date Dami Chapin MD My previous notes reflect the following. On December 13, 2019 on clinical exam I felt that I detected abdominal aortic aneurysm which were not previous noted. I also recommended that we obtain a CTA of the carotids for further definition. His previous carotid duplex imaging is as below. My plan on December 26, 2019 as noted below HPI: DAMI SANCHEZ, is a 84 M who presents to the office today for surgical consultation regarding a Hollenhorst plaque left eye. The patient is referred by Dr. Vivian Stone and a written copy my surgical consult recommendations will be returned to him as well as forwarded on to Dr. Vivian Moralse. Very pleasant 84-year-old gentleman. He has been symptom-free. He denies any vision problems slurred speech motor or sensory loss. He has never had a previous head CT scan as far as he is aware. As noted below he had carotid duplex imaging at the [facility] showing no significant disease on the right but there was felt to be greater than 70% stenosis with irregular plaque on the left. Again the patient has not had any left eye vision deficit. He is not currently on a statin medication. He states that he has been on treatment in the past. Most recent laboratory that we have demonstrates triglycerides at 157 HDL 35 LDL 118 non-HDL cholesterol at 149 with a total cholesterol to HDL ratio 5.26 and an LDL to HDL ratio of 3.37. His BUN was 23 and creatinine 1.32. His exercise includes walking. He does have some right calf cramping with walking. He denies any chest pain no shortness of breath he is not detected any skipping of his heart rate [facility] [address] [place] [address] Carotid Duplex Ultrasound 12/09/19 0956 MR#: [id number] Name: DAMI SANCHEZ [facility] #:[id number] : 1935 84From: Dami Chapin MD Attending Dr: Dr. Vivian Stone, MDStatus: REG CLI Ordering Dr: Vivian Stone MDDate: 12/09/19 [facility] Admitted: Reason For Study: HOLLENHURST PLAQUE LEFT EYE Rt. Velocities/BP Lt. Velocities/BP Prox CCA 78/18 cm/sec. Prox CCA 76/18 cm/sec. Mid CCA 80/23 cm/sec. Mid CCA 74/22 cm/sec. Dist CCA 55/18 cm/sec. Dist CCA 74/23 cm/sec. Prox ICA 94/27 cm/sec. Prox ICA 264/73 cm/sec. Mid ICA 87/23 cm/sec. Mid ICA 189/31 cm/sec. Dist ICA 52/17 cm/sec. Dist ICA 257/60 cm/sec. Rt. ICA/CCA = 1.2. Lt. ICA/CCA = 3.6. Prox ECA 170/38 cm/sec. Prox ECA 498/66 cm/sec. Rt. Vert. 78/24 cm/sec. Lt. Vert. 34/13 cm/sec. Right Extracranial There is homogeneous, smooth atherosclerotic plaque noted in the right common carotid artery. There is heterogeneous, irregular atherosclerotic plaque noted in the right internal carotid artery. There is heterogeneous, irregular atherosclerotic plaque noted in the right external carotid artery. Antegrade flow is noted in the right vertebral artery. There is heterogeneous, irregular atherosclerotic plaque noted in the right bulb. Left Extracranial There is heterogeneous, irregular atherosclerotic plaque noted in the left common carotid artery. There is homogeneous, smooth atherosclerotic plaque noted in the left common carotid artery. There is heterogeneous, irregular atherosclerotic plaque noted in the left internal carotid artery. The left internal carotid artery is very tortuous. There is heterogeneous, irregular atherosclerotic plaque noted in the left external carotid artery. Antegrade flow is noted in the left vertebral artery. There is heterogeneous, irregular atherosclerotic plaque noted in the left bulb. Procedure Carotid Duplex 76332. The study was technically difficult. Exam performed in department. Interpretation Summary Irregular calcific plaque of the proximal right internal carotid artery with less than 50% stenosis. <50% stenosis right external carotid Irregular calcific plaque left mid common carotid Irregular calcific plaque of the proximal left internal carotid with >70% stenosis and tortuosity noted Irregular plague noted within the left carotid bulb >50% stenosis left external carotid Patent and antegrade vertebrals bilaterally Ordering Physician: Vivian Stone Referring Physician: VIVIAN MORALES Performed By: Vanessa Bhandari, NADER, RVT 12/09/19 1121 Date Dami Chapin MD ROS General General: No weight change, appetite, fatigue, colon cancer, breast cancer or weakness HEENT HEENT: No difficulty swallowing, eye injury, eye surgery, swollen glands or hoarseness Endo Endocrine: No thyroid disease, diabetes mellitus, thyroid cancer, Hair loss, heat intolerance or cold intolerance Skin Skin: No rash or changing moles Breast Breast: No left breast lump, right breast lump, nipple discharge, breast pain, abnormal mammogram, abnormal US or breast enlargement Musc Musculoskeletal: No back problems, arthritis, rheumatoid arthritis, gout or joint pain Cardio Cardiovascular: Yes high blood pressure; no murmur, pacemaker, heart disease, atrial fibrillation, heart attack, heart stent, palpitations, shortness of breat with exertion or chest pain Psych Psychiatric: No depression, anxiety or hearing voices Resp Respiratory: No shortness of breath, No sleep apnea, No cough, No COPD, No asthma, No emphysema, No wheezing Gastro Gastrointestinal: No abdominal pain, No nausea or vomiting, No diarrhea, No constipation, No blood in stool, No acid reflux, No hemorrhoids, No ulcers, No gallbladder problem, No black,tarry stools Yash Hematologic: No blood thinners, No blood disorders, No bleeding, No anemia, No blood clots Neuro Neurologic: No system reviewed and no additional complaints, except as docu, No as per HPI, No abnormal walking, No abnormal hearing, No abnormal movements, No abnormal speech, No behavioral changes, No burning sensations, No confusion, No seizure-like activity, No unsteadiness, No dizziness, No localized weakness, No frequent falls, No headache(s), No lack of coordination, No loss of vision, No memory loss, No numbness, No other visual disturbances, No radiating pain, No restless legs, No sensory deficit, No fainting, No tingling, No tremor(s), No weakness, No other Exam Chest Breast Palpation: No nipple discharge Cardio Heart Sounds: no murmurs Assessment & Plan Problems 1. Stenosis of left carotid artery I65.22 2. Abdominal aortic aneurysm (AAA) without rupture I71.4 Plan Today was a 20-minute [id number] consultative appointment. I discussed the CTA findings. I do not believe that he has 70% stenosis of the right carotid. I believe that the calcific plaque present on CT is causing an over estimation of the degree of narrowing. I do believe however that he has at least 60% stenosis of the left internal carotid possibly closer to the 70% as suggested on carotid duplex. However he is asymptomatic. The finding was a Hollenhorst plaque on the left. He is 84 years of age. He has a newly diagnosed identified 3.9 cm abdominal aortic aneurysm. This also is asymptomatic. The patient was accompanied by his son today After discussion of treatment options he is aware that I cannot get him to 0% risk regarding his carotid stenosis nor his abdominal aortic aneurysm. I am not advising abdominal aortic aneurysm repair at this time. I provided him a recommended diameter for repair at 5 to 5.5 cm. Given an expected growth of 0.5 cm/year then at 1 year his aneurysm ostensibly should be close to 4.4 cm. I recommend abdominal aortic duplex imaging at 1 year The patient has just been initiated on statin medication. The local incidence of COVID-19 is currently increasing. I recommend to him ongoing medical maximization of his care. I recommend that we obtain carotid duplex imaging at 6 months. Hopefully the pandemic will be better managed at that time with hopefully a vaccine available. Currently at this time national incidence is significantly increasing. The patient and his son have had an opportunity to ask and have questions answered. If the patient were to become symptomatic he has been instructed to urgently go to the emergency room for treatment. As noted he is asymptomatic currently from both the carotid stenosis and the abdominal aortic aneurysm. I have provided advice regarding physical activity. I do not believe that he should do heavy lifting and straining of furniture. We will obtain carotid duplex imaging 6 months with very careful attention to the left carotid. We will obtain aortic duplex exam in 1 year for follow-up of his infrarenal abdominal aortic aneurysm. Copy: Dr. Vivian Morales and Dr. Vivian Chapin M.D., F.A.C.S. Orders Orders: Abd Aortic/IVC Duplex scan 12/25/20 I71.4 Carotid Duplex Ultrasound 06/23/20 I65.29 Coding Level of Care Code Off vis,est,level 2 Diagnoses Stenosis of left carotid artery I65.22 ??Laterality: left Abdominal aortic aneurysm (AAA) without rupture I71.4 ??Presence of rupture: without rupture Past Medical History Past Medical History (Chronic Problems): Chronic Problems (Last Reviewed 12/26/19 @ 13:29 by Vicenta Owens) Hyperlipidemia (Chronic) Hypertension (Chronic) Medical History: Medical History (Last Reviewed 12/26/19 @ 13:29 by Vicenta Owens) Abdominal aortic aneurysm (AAA) (Acute) I71.4 Hyperlipidemia (Chronic) E78.5 Hypertension (Chronic) I10 Carotid stenosis (Acute) I65.29 Allergies No Known Allergies Allergy (Verified 03/27/20 12:36) Home Medications: Ambulatory Orders Medication Instructions Recorded aspirin 81 mg tablet,delayed 81 mg PO DAILY 12/13/19 release calcium carbonate 600 mg calcium 600 mg PO QODAY 12/13/19 (1,500 mg) tablet cetirizine 10 mg tablet 10 mg PO DAILY PRN PRN 12/13/19 guaifenesin 600 mg tablet, 600 mg PO Q12H PRN 12/13/19 extended release 12 hr lisinopril 30 mg tablet 30 mg PO DAILY 12/13/19 spironolactone 25 mg tablet 25 mg PO DAILY 12/13/19 vit C,E,zinc,copper-dybfo5d 250 1 cap PO DAILY 12/13/19 mg-lutein 5 mg-zeaxanthin 1 mg capsule atorvastatin 10 mg tablet 10 mg PO QODAY tab 12/26/19 Surgical History: Surgical History (Last Reviewed 12/26/19 @ 13:29 by Vicenta Owens) History of tonsillectomy and adenoidectomy Z98.890 Surgical History: tonsillectomy Psychiatric History: No pertinent psych hx Lives: Spouse/ Significant Other, With Family Smoking Status: Never smoker Tobacco Use: Non-smoker Alcohol: None Drugs: None - *Family History Maternal Family History: Family History (Last Reviewed 12/26/19 @ 13:29 by Vicenta Owens) Mother CVA (cerebral vascular accident) History Items: Stroke - Brain aneurysm, - Paternal Family History: Family History (Last Reviewed 12/26/19 @ 13:29 by Vicenta Owens) Mother CVA (cerebral vascular accident) History Items: No pertinent history Review of Systems Constitutional: Denies: Fever, Night Sweats Eyes: Denies: Blurred vision HEENT: Denies: Difficulty Swallowing Cardiovascular: Denies: Chest Pain Respiratory: Denies: Cough, Shortness of Breath Gastrointestinal: Reports: Nausea, Vomiting. Denies: Abdominal Pain Psychiatric: Denies: Anxiety Endocrine: Denies: Change in Body Habitus Patient Problems: Active and Suspected Problems (Last Reviewed 12/26/19 @ 13:29 by Vicenta Owens) TIA (transient ischemic attack) (Acute) Lactic acidosis (Acute) Abdominal aortic aneurysm (AAA) (Acute) Carotid stenosis (Acute) - Physical Exam Vitals/I&O's: Vital Signs Temp Pulse Resp BP Pulse Ox 98.7 F 57 L 18 126/68 H 95 03/28/20 02:00 03/28/20 02:59 03/28/20 02:00 03/28/20 02:00 03/28/20 02:00 Oxygen Delivery Method Room Air Weight: 194 lb 7.163 oz Body Mass Index (BMI) 27.8 Finger Stick Blood Glucose 111 Intake and Output for Last 24 Hours 03/26/20 03/27/20 03/28/20 23:59 23:59 23:59 Intake Total 1720 / 1720 1000 / 1000 Balance 1720 / 1720 1000 / 1000 General: Alert, Oriented x3, Cooperative, No apparent distress HEENT: Atraumatic Lungs: Clear to auscultation, Normal air movement Cardiovascular: Regular rate, Regular Rhythm Abdomen: Soft, Non Tender Psych/Mental Status: Normal Affect Microbiology Past 72 Hours 03/27/20 13:15 Mucosa - Nose SARS-CoV-2 Antigen (Rapid) - Final Laboratory Results 03/27/20 13:15: WBC 14.3 H, RBC 4.45 L, Hgb 14.8, Hct 41.9, MCV 94.2 H, MCH 33.3 H, MCHC 35.3, RDW Std Deviation 46.9 H, RDW Coeff of Britt 13.4, Plt Count 274, MPV 9.6, Immature Gran % (Auto) 0.600, Neut % (Auto) 91.2 H, Lymph % (Auto) 4.8 L, [place] % (Auto) 3.0, Eos % (Auto) 0.0, Baso % (Auto) 0.4, Absolute Neuts (auto) 13.0 H, Absolute Lymphs (auto) 0.69 L, Nucleated RBC % 0 03/27/20 13:15: Sodium 136, Potassium 4.7, Chloride 104, Carbon Dioxide 27.0, Anion Gap 5, BUN 23 H, Creatinine 1.38 H, Estim Creat Clear Calc 39.14, Est GFR (MDRD) Af Amer 63, Est GFR (MDRD) Non-Af 52 L, BUN/Creatinine Ratio 16.7, Glucose 125 H, Calcium 9.1, Total Bilirubin 0.50, AST 17, ALT 29, Alkaline Phosphatase 55, Troponin I < 0.015, Total Protein 7.1, Albumin 4.0, Globulin 3.1, Albumin/Globulin Ratio 1.3 03/27/20 13:15: Lactic Acid 2.8 H* 03/27/20 13:15: Hemoglobin A1c 6.1 H 03/27/20 13:21: POC Glucose 111 H 03/27/20 14:00: Urine Color Yellow, Urine Clarity Clear, Urine pH 6.5, Ur Specific [place] 1.010, Urine Protein 100 H, Urine Glucose (UA) Normal, Urine Ketones 5 H, Urine Occult Blood 50 H, Urine Nitrite Negative, Urine Bilirubin Negative, Urine Urobilinogen Normal, Ur Leukocyte Esterase Negative, Urine RBC 0-5 SEEN, Urine WBC 0 SEEN, Ur Squamous Epith Cells 0-5 SEEN, Urine Bacteria 0 SEEN, Urine Mucus 0 SEEN 03/27/20 18:26: Lactic Acid 1.2 03/27/20 18:26: Troponin I < 0.015 03/28/20 05:50: WBC Pending, RBC Pending, Hgb Pending, Hct Pending, MCV Pending, MCH Pending, MCHC Pending, RDW Std Deviation Pending, RDW Coeff of Britt Pending, Plt Count Pending, Neut % (Auto) Pending, Absolute Neuts (auto) Pending 03/28/20 05:50: Sodium Pending, Potassium Pending, Chloride Pending, Carbon Dioxide Pending, Anion Gap Pending, BUN Pending, Creatinine Pending, Est GFR (MDRD) Af Amer Pending, Est GFR (MDRD) Non-Af Pending, BUN/Creatinine Ratio Pending, Glucose Pending, Calcium Pending, Total Bilirubin Pending, AST Pending, ALT Pending, Alkaline Phosphatase Pending, Total Protein Pending, Albumin Pending, Triglycerides Pending, Cholesterol Pending, LDL Cholesterol Pending, VLDL Cholesterol Pending, HDL Cholesterol Pending Current Medications Acetaminophen (Acetaminophen 325 Mg Tablet) 650 mg PO Q6H PRN PRN PRN Reason: Pain Score 1-10/Temp > 100.7 F Albuterol Sulfate (Albuterol 2.5 Mg/3 Ml Vial.Neb.) 2.5 mg INHALATION Q2H PRN PRN PRN Reason: SOB/Wheezing Aspirin (Aspirin E.C. 81 Mg Tablet) 81 mg PO DAILYCM DANIEL Atorvastatin Calcium (Atorvastatin Calcium 40 Mg Tablet) 40 mg PO QODAY@2200 [facility] Last Admin: 03/27/20 22:13 Dose: 40 mg Documented by: Calcium Carbonate (Calcium Carbonate 500 Mg Tablet) 500 mg PO QODAY@0800 [facility] Clopidogrel Bisulfate (Clopidogrel Bisulfate 75 Mg Tablet) 75 mg PO DAILY [facility] Last Admin: 03/27/20 22:13 Dose: 75 mg Documented by: Heparin Sodium (Porcine) (Heparin Injection (Vial) 5,000 Unit/Ml Vial) 5,000 unit SC Q8 [facility] Last Admin: 03/27/20 22:13 Dose: 5,000 unit Documented by: Hydralazine HCl (Hydralazine 20 Mg/Ml Vial) 5 mg IV Q4H PRN PRN PRN Reason: BLOOD PRESSURE Sodium Chloride (0.9% Saline Lock 10 Ml Syringe) 10 - 40 ml IV UD PRN PRN Reason: SALINE FLUSH Assessment/Plan All Active Problems (Last Reviewed 12/26/19 @ 13:29 by Vicenta Owens) TIA (transient ischemic attack) (Acute) Lactic acidosis (Acute) Abdominal aortic aneurysm (AAA) (Acute) Carotid stenosis (Acute) Medications currently include aspirin and newly added clopidogrel and increased atorvastatin. Teleneurology consultation was obtained recommending carotid intervention in less than 2 weeks. There are recommendations present for cardiology evaluation. At this point the patient is converted from asymptomatic to symptomatic left carotid stenosis. I propose for him a left carotid endarterectomy with patch angioplasty. I would like to have his son available to discuss these features. I will arrange for him to have an office appointment very soon after discharge and further medicine work-up. He will need to be cleared from medicine standpoint and cardiac standpoint to proceed with surgery. I do have concerns regarding the patient's admission leukocytosis and lactic acidosis. Etiology needs to be clarified. I appreciate the opportunity of assisting with her surgical care. We should be able to schedule him for intervention in the very near future pending ongoing medical evaluation. Dami Chapin M.D., F.A.C.S. HPI HPI HPI: DAMI SANCHEZ, is a 85 M who presents to the office today for Assessment & Plan Problems 1. Stenosis of left carotid artery I65.22 Plan The patient now has had a significant embolic event to the left frontal and parietal lobes of the brain. I believe this is coming from his left internal carotid stenosis. He had his statin medication increased to discharged and I added clopidogrel therapy to his discharge medications in addition to his aspirin medication. With his and son present today we discussed the technique, benefit, risk, alternatives of a left carotid endarterectomy with bovine patch angioplasty and arterial line monitoring. He has had an opportunity ask and have questions answered. It is of note that he has not yet returned to baseline. Still has some mild confusion. Still has loss of strength generally. However he states he is better than what he was at the time of admission. We discussed nonsurgical treatment. He clearly demonstrates that he is now had an acute event making the nonoperative management that was selected 2 months ago now seemingly inadequate. He is aware that there are no guarantees of success. He is aware of the increased operative risk. I will have him hold his Plavix on April 01 while he continues his aspirin therapy. We will proceed then with surgical intervention on April 02. I appreciate the ongoing opportunity of assisting with surgical care. Copy: Dr. Vivian Chapin M.D., F.A.C.S. 30-minute [id number] consultative appointment Coding Level of Care Code Off vis,est,level 3 Diagnoses Stenosis of left carotid artery I65.22 ??Laterality: left I have re-examined the patient. There are no clinical changes since date of exam. Procedure Criteria Procedure Type: Elective COVID Risk Discussion: The surgeon/proceduralist and patient have discussed in detail the risk of exposure to and/or potential harm posed by the COVID-19 virus with having a surgery/procedure at this time versus the risk of delaying the surgery/procedure. It is not possible to know either the risk of delaying the surgery or procedure or chance of getting an infection with perfect accuracy, but a joint decision was made between the patient and the surgeon/proceduralist to proceed at this time with the scheduled surgery/procedure as indicated on the consent form.
--- NOTE | 2020-04-02 11:39 | OP.PCM_ITS ---
Problem List (1) TIA (transient ischemic attack) Status: Acute (2) Carotid stenosis Status: Acute Qualifiers: Report of Operation Date of Procedure: 04/02/20 Pre-Operative Diagnosis: Symptomatic critical stenosis left extracranial internal carotid artery Post-Operative Diagnosis: Same Surgery/Procedure Performed:: Right radial arterial line placement. Left carotid endarterectomy with bovine patch angioplasty. Bovine patch. Lot number [id number] x 8 cm Description of Surgical Findings:: Timeout and informed consent was obtained. At bedside Misael test performed demonstrating adequate ulnar flow. The right wrist was gently extended and prepped with Betadine. Under ultrasound guidance 1% lidocaine was instilled as a local anesthetic. A total of 1 cc was used. Then under ultrasound guidance a 20-gauge Angiocath was advanced into the right radial artery. 3 attempts were required. Then with the Seldinger wire advancement I advanced and then secured the cath with 3-0 nylon. It was connected to pressure tubing. Good waveform obtained. OpSite dressing followed by Andrew wrap applied. No apparent complication. Hand was viable at the completion. The patient was subsequently taken to the operating room for planned intervention Timeout and informed consent again obtained. The left neck was sterilely prepped and draped. Patient underwent general endotracheal intubation and anesthesia. Ancef 2 g were given intravenously preoperatively. An oblique incision was made along the anterior border of the sternocleidomastoid. Sharp dissection carried down through the subtenons tissue. The sternocleidomastoid was reflected laterally as direct dissection performed down upon the common c arotid. The crossing facial vein was secured with 3-0 Vicryl. Sharp and blunt dissection was used to identify the carotid bulb common carotid internal and external carotids. A Dacron tape and Clark tie was placed in the common carotid. A Dacron tape and Elsa tourniquet of the internal carotid. Vessel loop was placed around the external carotid. A Vicryl Clark tie was placed around the superior thyroid. It is of note that dissection was extraordinarily challenging due to the amount of fibrofatty tissue and ready bleeding. Had to use hemoclips electrocautery and 3-0 Vicryl ligatures where needed. The disease extended several centimeters distally in the internal carotid and then ended where there was a moderate 40 degree kink. I had to dissect underneath the hypoglossal nerve. The vagus nerve crossed in front of the internal carotid and had to be dissected free. The ansa cervicalis also had to be dissected free. Dissection was quite high. The patient then received weightbase 9000 units of heparin. A Cardoso clamp was placed on the internal carotid peripheral vascular DeBakey on the common carotid and on the external carotid and 11 blade was used to make an arteriotomy which extended with Clark scissors. There was extensive overwhelming plaque at the origin of the external carotid and carotid bulb and then moderate disease with the internal carotid until the slight kink area was identified then there was near total occlusion at that level I had to get separate access to the vessel superiorly to find the true lumen. I placed a #10 USCI style shunt cephalad and proximally. Initially then I did dissection of the carotid intima was sharply transected proximally a inversion endarterectomy performed of the external carotid it then became apparent that the internal carotid plaque was extraordinarily friable. I could not get cephalad enough control to allow the shunt to remain. Cerebral oximetry had remained very stable. Back pressure. Very good. So then I had to remove the shunt. Tedious effort was required as I had to extend my arteriotomy in order to try to obtain a clean ending to the internal carotid intima. This was extraordinarily challenging. The tissue was very friable. I eventually ended up placing several 7-0 Prolene tacking sutures. I then used a 8 x 8 cm bovine pericardium patch. It was trimmed to shape and using a 6-0 Prolene secured it to the artery in a running fashion. Prior to completion the vessel was copiously irrigated. The patient had diffuse oozing for all surfaces likely consistent with his aspirin and clopidogrel and fish oil therapy. Antegrade flow from the common carotid was brisk. There was good retrograde flow from the internal carotid. There was adequate retrograde flow from the external carotid. Clamps were removed with the external common and then internal carotid. Several repair sutures of simple 7-0 Prolene was used to require to obtain complete hemostasis. There was complete hemostasis achieved. I then used a hand-held Doppler to listen to the carotid artery cephalad to the endarterectomy. This was a very long endarterectomy and very long patch. There was good flow cephalad. I would not have been able to get a Doppler probe in that location easily. Pressures hold held for hemostasis. It was noted that based upon ACT measurements and the length of time for the procedure he received additional 1000 units of heparin during the case. At the completion he received 30 mg of protamine as reversal. Hemostasis was achieved. The artery appeared to be in a good positional lie. Diffuse tissue oozing noted. Extensive amount of time was required at the completion of the procedure allowing the protamine to take some affect. Initially placed Surgicel in the base of the wound at assisted to a degree. I then placed FloSeal overlying the carotid artery. Held pressure. I approximated the subcutaneous tissues with a running 3-0 Vicryl. The skin edges approximate a running subicular 5-0 Vicryl. The periincisional nares Nestabs with 16 cc of 0.5% Marcaine. It is of additional note that I did use 1 cc of 1% lidocaine during the procedure at the carotid bulb to assist as the patient had symptomatic bradycardia. Steri-Strips Telfa tape dressings applied. Sponge and instrument and needle counts were reported surgically correct. The patient was allowed to awake. He followed commands moving all 4 extremities. Tongue was midline. He was taken to the recovery area in satisfactory condition. Specimen plaque. Blood loss 750 cc. Drains none. Roddy Chapin M.D., F.A.C.S. Type of Anesthesia:: General Anesthesiologist: Wiliam Gutierrez
[2020-04-02] MEDS: Cefazolin 2 GM in 0.9% Normal Saline 100 ML IV (11:40)
--- NOTE | 2020-04-02 11:43 | DCINST_ITS ---
<Roddy Chapin - Last Filed: 04/02/20 11:43> Discharge Diet: Light diet - advance as tolerated - if you have questions about your diet instructions, please talk to you doctor. Discharge Activity: May Not Drive - for 1 week or while taking narcotic pain medicine. May shower in (days): 3 - May shower on Thursday Lifting Restrictions: 10 pounds Call your doctor if your incision/area has: Continuous Slow Oozing, Sudden Increased Bleeding, Increased Pain/ Swelling, Increased Redness, Foul Smelling Discharge Call your doctor if you observe: Fever of 101 or Higher Suture Line Care: Avoid Pulling/Pushing, Avoid Pinching/Bending Additional Dressing/Incision Instructions:: You may apply a dry gauze dressing as needed to protect the incision from clothing. You may otherwise leave the incision open to air with the Steri-Strips in place for 1 week. After 1 week you may remove the Steri-Strips. Allergies/Adverse Reactions: Allergies No Known Allergies Allergy (Verified 03/30/20 12:09) Medications to take at Discharge aspirin 81 mg tablet,delayed release 81 mg PO DAILY 12/13/19 calcium carbonate 600 mg calcium (1,500 mg) tablet 600 mg PO QODAY 12/13/19 cetirizine 10 mg tablet 10 mg PO DAILY PRN PRN 12/13/19 guaifenesin 600 mg tablet, extended release 12 hr 600 mg PO Q12H PRN 12/13/19 lisinopril 30 mg tablet 30 mg PO DAILY 12/13/19 spironolactone 25 mg tablet 25 mg PO DAILY 12/13/19 vit C,E,zinc,copper-kixyn6b 250 mg-lutein 5 mg-zeaxanthin 1 mg capsule 1 cap PO DAILY 12/13/19 Atorvastatin Calcium [Lipitor] 40 mg PO QODAY@2200 03/29/20 Clopidogrel Bisulfate [Clopidogrel] 75 mg PO DAILY 03/29/20 Hydrocodone Bitart/Apap 5-325 [[place] 5/325] 1 tab PO Q6H PRN PRN 2 Days #6 tab 04/03/20 Tamsulosin HCl [Flomax] 0.4 mg PO DAILY@0830 #14 cap 04/03/20 The following prescriptions were given: Tamsulosin HCl [Flomax] 0.4 mg PO DAILY@0830 #14 cap Transmission Status: Received by [id number] Hydrocodone Bitart/Apap 5-325 [[place] 5/325] 1 tab PO Q6H PRN PRN 2 Days #6 tab PRN Reason: Pain Score 1-10 Transmission Status: Received by [id number] Primary Care Physician: Wallace Vora MD [Primary Care Provider] - Test Results: Test results from this visit will be discussed in further detail at your follow- up appointment, if applicable. Please Follow Up With: Roddy Chapin MD - [phone] When: Call to make an appointment to be seen in about 10 days. <Geovanna Gomez - Last Filed: 04/03/20 08:20> Test Results: Test results from this visit will be discussed in further detail at your follow- up appointment, if applicable. Proposed Discharge Date: 04/03/20
[2020-04-02] MEDS: Lactated Ringers 1,000 ML 100 ML IV ×2 (11:45→11:47)
[2020-04-02] MEDS: Heparin Injection (Vial) 5,000 UNIT/ML VIAL 5000 UNIT (12:07)
[2020-04-02] MEDS: Lidocaine 1% (20 ml mdv) 20 ML Vial (12:27)
[2020-04-02] MEDS: Bupivacaine Mpf 0.5% 30 ML VIAL (14:56)
[2020-04-02] MEDS: Nitro/D5w 25MG/250ML Bottle 25 MG (15:04)
[2020-04-02] MEDS: Lactated Ringers 1,000 ML 30 ML IV ×2 (15:31→18:12)
[2020-04-02 15:56] LABS: Hematocrit 34.3 % (40-54); Hemoglobin 11.6 g/dL (13.0-16.5); Mean Corp Hgb Conc 33.8 g/dL (32-36); Mean Corpuscular Volume 97.7 fL (80-94); Mean Platelet Vol. 8.8 fl (6.2-12.0); Platelet Count 259 K/mm3 (150-450); RBC Distribution Width CV 13.6 % (11.6-14.6); RBC Distribution Width SD 48.5 fl (35.1-43.9); Red Blood Count 3.51 M/mm3 (4.6-6.2); White Blood Count 16.9 K/mm3 (4.4-11.0)
--- NOTE | 2020-04-02 16:17 | PCM.PN.HOSP ---
Patient Problems: Active and Suspected Problems (Last Reviewed 03/30/20 @ 12:20 by Vicenta Owens) TIA (transient ischemic attack) (Acute) Carotid stenosis (Acute) Reason for Visit: post op carotid endarterectomy Subjective: Roddy underwent a carotid endarterectomy today with Dr. Chapin. During the procedure he had notably elevated blood pressure. He recently had an acute CVA and noted carotid stenosis at which time the CEA was scheduled for the 25th. He has been on aspirin and plavix, plavix is held for this procedure. He is currently resting comfortably upright in PACU. He is still somewhat groggy at this point. Nursing is applying constant pressure to the left surgical sight. He has no complaints. He has an A line monitoring his pressure which at the time of this exam was about 140 systolic. Vitals/I&O's: Vital Signs Temp Pulse Resp BP Pulse Ox 97.5 F L 104 H 16 137/62 H 94 04/02/20 15:25 04/02/20 16:00 04/02/20 16:00 04/02/20 16:00 04/02/20 16:00 Oxygen Flow Rate (L/min) 2 Oxygen Delivery Method Room Air Weight: 193 lb 5.526 oz Body Mass Index (BMI) 26.9 Finger Stick Blood Glucose 111 Intake and Output for Last 24 Hours 03/31/20 04/01/20 04/02/20 23:59 23:59 23:59 Intake Total 2109 Balance 2109 General: Alert, Oriented x3, Cooperative HEENT: Atraumatic, PERRLA, EOMI, Normocephalic Neck: Supple, No JVD, Negative Carotid Bruits Lungs: Clear to auscultation, Normal air movement Cardiovascular: Regular rate, No murmurs Abdomen: Bowel Sounds Present, Soft, Non Tender Extremities: No edema, Capillary Refill Less than 3 Seconds Skin: No rashes, No breakdown Musculoskeletal: No Tenderness to Palpation of Joints or Extremities Neurological: Cranial nerves II-XII grossly intact Psych/Mental Status: Normal Affect, Appropriate, Alert and oriented to time, place, person, mood and affect Laboratory Results 04/02/20 15:45: WBC 16.9 H, RBC 3.51 L, Hgb 11.6 L, Hct 34.3 L, MCV 97.7 H, MCH 33.0 H, MCHC 33.8, RDW Std Deviation 48.5 H, RDW Coeff of Britt 13.6, Plt Count 259, MPV 8.8 04/02/20 15:45: Sodium Pending, Potassium Pending, Chloride Pending, Carbon Dioxide Pending, Anion Gap Pending, BUN Pending, Creatinine Pending, Est GFR (MDRD) Af Amer Pending, Est GFR (MDRD) Non-Af Pending, BUN/Creatinine Ratio Pending, Glucose Pending, Calcium Pending Current Medications Acetaminophen (Acetaminophen 325 Mg Tablet) 325 - 650 mg PO Q4H PRN PRN PRN Reason: Pain Score 1-10/10 or Headache Hydrocodone Bitart/Acetaminophen (Hydrocodone Bitartrate/Apap 5/325 Tablet) 1 - 2 tablet PO Q6H PRN PRN PRN Reason: Pain Score 1-10 Aspirin (Aspirin E.C. 81 Mg Tablet) 81 mg PO DAILY [facility] Atorvastatin Calcium (Atorvastatin Calcium 40 Mg Tablet) 40 mg PO QODAY@2200 [facility] Guaifenesin (Guaifenesin 600 Mg Tablet) 600 mg PO Q12H PRN PRN Reason: CONGESTION Lactated Ringer's () 1,000 mls @ 30 mls/hr IV .[id number] [facility] Last Admin: 04/02/20 15:31 Dose: 30 mls/hr Documented by: Cefazolin Sodium () 1 gm in 50 mls @ 150 mls/hr IV Q8H [facility] Stop: 04/03/20 03:49 Lisinopril (Lisinopril 20 Mg Tablet) 30 mg PO DAILY [facility] Loratadine (Loratadine 10 Mg Tablet) 10 mg PO DAILY PRN PRN PRN Reason: ALLERGIES Morphine Sulfate (Morphine 2 Mg/Ml Syringe) 2 - 4 mg IV Q1H PRN PRN PRN Reason: Pain Score 1-10 Ondansetron HCl (Ondansetron 4 Mg/2 Ml Vial) 4 mg IV Q8H PRN PRN PRN Reason: NAUSEA Spironolactone (Spironolactone 25 Mg Tablet) 25 mg PO DAILY [facility] STROKE Vital Signs/Narrative: Vital Signs Temp Pulse Resp BP Pulse Ox 04/02/20 16:00 104 H 16 137/62 H 94 04/02/20 15:45 109 H 16 147/68 H 99 04/02/20 15:30 116 H 16 152/72 H 97 04/02/20 15:25 97.5 F L 118 H 16 144/64 H 97 Medical Necessity - Tobacco Use Smoking Status: Former smoker Tobacco Use: Non-smoker Assessment/Plan All Active Problems (Last Reviewed 03/30/20 @ 12:20 by Vicenta Owens) History of tonsillectomy and adenoidectomy (Acute) TIA (transient ischemic attack) (Acute) Lactic acidosis (Acute) Abdominal aortic aneurysm (AAA) (Acute) Carotid stenosis (Acute) 1. Cerebrovascular disease - recent TIA/CVA. left carotid stenosis - s/p left CEA post op day #0. pt will be transferred to PCU after his recovery in PACU. Care as per Dr. Chapin. Plan is to continue aspirin hold off on plavix until ok per surgery. Pt receivined perioperative cefazolin. EBL 750cc. CBC in AM. 2. Uncontrolled HTN - this is improving. Currently has A line in and pressures are markedly improved. Can use prn hydrlazine/lebatolol if needed. Resume lisinopril in the AM. Recheck BMP in AM. 3. HLD - statin 4. 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 Thank you for the opportunity to participate in the care of this patient. This patient was seen by Chavez Capps PA-C under the supervision of Dr. Lobato
[2020-04-02] MEDS: 0.9% Normal Saline 1,000 ML 50 ML IV ×2 (16:20→21:47)
[2020-04-02 16:26] LABS: Anion Gap 8 (5-15); BUN 18 mg/dL (7-18); BUN/Creat Ratio 16.4 RATIO (10-20); Calcium,Total 7.3 mg/dL (8.5-10.1); Chloride 105 mmol/L (98-107); EST Glomerular Filtration Rate 68 mL/min (>60); Est Glom Filt Rate - Afr Amer 82 mL/min (>60); Estimated Creatinine Clearance 52.29 ml/min; Glucose 149 mg/dL (74-106); Potassium 4.4 mmol/L (3.5-5.1); Sodium Level 137 mmol/L (136-145)
--- NOTE | 2020-04-02 17:34 | SUR.PHASEI ---
AT 1720, BLADDER SCANNED FOR >415CC. #16 HAITIAN CARVALHO INSERTED INTO THE PATIENT'S BLADDER WITHOUT DIFFICULTY. CARVALHO ATTACHED TO CONTINUOUS DRAINAGE BAG AND DRAINING CLEAR YELLOW URINE.
--- NOTE | 2020-04-02 18:43 | PCS.PANDOC ---
PANDEMIC DOCUMENTATION INITIATED: Date: 04/02/20 Time: 9820
[2020-04-02] MEDS: Atorvastatin Calcium 40 MG Tablet PO (21:42)
[2020-04-02] MEDS: Cefazolin 1 GM/50 ML BAG IV (21:43)
[2020-04-02] MEDS: 0.9% Saline Lock 10 ML Syringe IV (21:43)
[2020-04-02] MEDS: HYDROcodone Bitartrate/Apap 5/325 Tablet PO (21:46)
[2020-04-03] VITALS (8 sets, daily range): BP systolic 107–150; BP diastolic 57–72; PULSE 71–96; RESP 12–16; TEMP 36.8–37.5; O2SAT 95–98; BMI 27.0
[2020-04-03] MEDS: Cefazolin 1 GM/50 ML BAG IV (04:17)
[2020-04-03] MEDS: HYDROcodone Bitartrate/Apap 5/325 Tablet PO (04:17)
[2020-04-03] MEDS: Lactated Ringers 1,000 ML 30 ML IV (04:18)
--- NOTE | 2020-04-03 06:14 | PCM.PN.SRG ---
Patient Problems: Active and Suspected Problems (Last Reviewed 03/30/20 @ 12:20 by Vicenta Owens) TIA (transient ischemic attack) (Acute) Carotid stenosis (Acute) Subjective: Patient notes soreness left neck. Denies any visual changes. Denies any motor or sensory loss. Objective: Patient noted to be hoarse. - Physical Exam Vitals/I&O's: Vital Signs Temp Pulse Resp BP Pulse Ox 99.5 F H 78 12 121/65 H 97 04/03/20 04:00 04/03/20 04:00 04/03/20 04:00 04/03/20 04:00 04/03/20 04:00 Oxygen Flow Rate (L/min) 2 Oxygen Delivery Method Room Air Weight: 193 lb 5.526 oz Body Mass Index (BMI) 26.9 Finger Stick Blood Glucose 111 Intake and Output for Last 24 Hours 04/01/20 04/02/20 04/03/20 23:59 23:59 23:59 Intake Total 4160 / 4360 879.66 / 879.66 Output Total 250 / 1250 1000 / 1000 Balance 3910 / 3110 -120.34 / -120.34 Neck: - - Left neck clean dry appropriate amount of ecchymosis no drainage supple no tension Lungs: Clear to auscultation Musculoskeletal: - - Muscular strength unchanged from preop x4 Neurological: - - Patient is alert, grossly intact. Aware of his situation and place Laboratory Results 04/02/20 15:45: WBC 16.9 H, RBC 3.51 L, Hgb 11.6 L, Hct 34.3 L, MCV 97.7 H, MCH 33.0 H, MCHC 33.8, RDW Std Deviation 48.5 H, RDW Coeff of Britt 13.6, Plt Count 259, MPV 8.8 04/02/20 15:45: Sodium 137, Potassium 4.4, Chloride 105, Carbon Dioxide 24.0, Anion Gap 8, BUN 18, Creatinine 1.10, Estim Creat Clear Calc 52.29, Est GFR (MDRD) Af Amer 82, Est GFR (MDRD) Non-Af 68, BUN/Creatinine Ratio 16.4, Glucose 149 H, Calcium 7.3 L Current Medications Acetaminophen (Acetaminophen 325 Mg Tablet) 325 - 650 mg PO Q4H PRN PRN PRN Reason: Pain Score 1-10/10 or Headache Hydrocodone Bitart/Acetaminophen (Hydrocodone Bitartrate/Apap 5/325 Tablet) 1 - 2 tablet PO Q6H PRN PRN PRN Reason: Pain Score 1-10 Last Admin: 04/03/20 04:17 Dose: 1 tablet Documented by: Aspirin (Aspirin E.C. 81 Mg Tablet) 81 mg PO DAILY [facility] Atorvastatin Calcium (Atorvastatin Calcium 40 Mg Tablet) 40 mg PO QODAY@2200 [facility] Last Admin: 04/02/20 21:42 Dose: 40 mg Documented by: Guaifenesin (Guaifenesin 600 Mg Tablet) 600 mg PO Q12H PRN PRN Reason: CONGESTION Sodium Chloride () 1,000 mls @ 50 mls/hr IV .Q20H [facility] Last Infusion: 04/03/20 04:38 Dose: 50 mls/hr Documented by: Lisinopril (Lisinopril 20 Mg Tablet) 30 mg PO DAILY [facility] Loratadine (Loratadine 10 Mg Tablet) 10 mg PO DAILY PRN PRN PRN Reason: ALLERGIES Morphine Sulfate (Morphine 2 Mg/Ml Syringe) 2 - 4 mg IV Q1H PRN PRN PRN Reason: Pain Score 1-10 Ondansetron HCl (Ondansetron 4 Mg/2 Ml Vial) 4 mg IV Q8H PRN PRN PRN Reason: NAUSEA Sodium Chloride (0.9% Saline Lock 10 Ml Syringe) 10 - 40 ml IV UD PRN PRN Reason: SALINE FLUSH Last Admin: 04/02/20 21:43 Dose: 10 ml Documented by: Spironolactone (Spironolactone 25 Mg Tablet) 25 mg PO DAILY [facility] Tamsulosin HCl (Tamsulosin Hcl 0.4 Mg Capsule) 0.4 mg PO DAILY@1730 [facility] Medical Necessity - Tobacco Use Smoking Status: Former smoker Tobacco Use: Non-smoker Assessment/Plan All Active Problems (Last Reviewed 03/30/20 @ 12:20 by Vicenta Owens) History of tonsillectomy and adenoidectomy (Acute) TIA (transient ischemic attack) (Acute) Lactic acidosis (Acute) Abdominal aortic aneurysm (AAA) (Acute) Carotid stenosis (Acute) Patient slightly hoarse. I suspect this is likely secondary to dry air pressure on his neck. Immediately postoperatively his voice was clear. I suspect this will rapidly resolve. His blood pressures remained quite stable. Urinary retention postoperatively noted. The patient does note BPH with urinary outlet obstructions preoperatively with nocturia x2. He has not seen urologist nor been on any medication. I will have the Thibodeaux removed and provide him with a dose of Flomax. I will temporarily hold his lisinopril so that he does not become hypotensive. I anticipate discharge later today hopefully after the patient voids. If not he will need to be discharged with an indwelling Thibodeaux and I would recommend adding Flomax to his discharge medication. His blood pressure medicine therefore may need to be altered. He appears to have had an amazingly stable postoperative course after a quite challenging carotid endarterectomy. Office follow-up as scheduled. Roddy Chapin M.D., F.A.C.S.
[2020-04-03 06:57] LABS: Absolute Lymphocyte Count 1.03 X10^3/uL (0.83-4.51); Absolute Neutrophil Count 8.3 X10^3/uL (2.0-7.7); Basophil# 0.07 X10^3/uL; Basophil% 0.7 % (0-1); Eosinophil# 0.12 X10^3/uL; Eosinophils% 1.1 % (0-5); Hematocrit 30.1 % (40-54); Lymphocyte # 1.03 X10^3/ul (4.0); Lymphocyte % 9.7 % (19-41); Mean Corp Hgb Conc 33.2 g/dL (32-36); Mean Corpuscular Volume 99.3 fL (80-94); Monocyte# 1.09 X10^3/uL; Monocyte% 10.3 % (0-10); NRBC Flagged by Analyzer 0 % (0-5); Neutrophil # 8.27 X10^3/uL (2.7-7.7); Neutrophil % 77.7 % (47-70); Platelet Count 238 K/mm3 (150-450); RBC Distribution Width SD 51.4 fl (35.1-43.9); Red Blood Count 3.03 M/mm3 (4.6-6.2); White Blood Count 10.6 K/mm3 (4.4-11.0)
--- NOTE | 2020-04-03 07:58 | PN_ITS ---
Patient Problems: Active and Suspected Problems (Last Reviewed 03/30/20 @ 12:20 by Vicenta Owens) TIA (transient ischemic attack) (Acute) Carotid stenosis (Acute) Reason for Visit: Postop blood pressure management Subjective: Patient is an 85-year-old gentleman who underwent left carotid endarterectomy on on 04/02/2020 by . The hospitalist service was consulted to assist with management in fluctuation of patient's blood pressure Objective: GENERAL: cooperative HEENT: Atraumatic; EYES; Anicteric, Normal Conjunctiva NECK; left-sided incision clean dry and intact RESPIRATORY: Diminished to auscultation CARDIOVASCULAR: Regular S1 S2, GI: soft, normoactive bowel sounds, : No Renal angle tenderness; EXTREMITIES: No edema, no clubbing, MUSCULOSKELETAL: no muscle waisting NEURO: Awake; no lateralizing signs. SKIN: No Rash PSYCH; Flat affect Vitals/I&O's: Vital Signs Temp Pulse Resp BP Pulse Ox 99.3 F H 72 14 127/66 H 98 04/03/20 06:00 04/03/20 07:00 04/03/20 06:00 04/03/20 06:00 04/03/20 06:00 Oxygen Flow Rate (L/min) 2 Oxygen Delivery Method Room Air Weight: 87.7 kg Body Mass Index (BMI) 26.9 Finger Stick Blood Glucose 111 Intake and Output for Last 24 Hours 04/01/20 04/02/20 04/03/20 23:59 23:59 23:59 Intake Total 4160 / 4360 1517.66 / 1517.66 Output Total 250 / 1250 2100 / 2100 Balance 3910 / 3110 -582.34 / -582.34 Laboratory Results 04/02/20 15:45: WBC 16.9 H, RBC 3.51 L, Hgb 11.6 L, Hct 34.3 L, MCV 97.7 H, MCH 33.0 H, MCHC 33.8, RDW Std Deviation 48.5 H, RDW Coeff of Britt 13.6, Plt Count 259, MPV 8.8 04/02/20 15:45: Sodium 137, Potassium 4.4, Chloride 105, Carbon Dioxide 24.0, Anion Gap 8, BUN 18, Creatinine 1.10, Estim Creat Clear Calc 52.29, Est GFR (MDRD) Af Amer 82, Est GFR (MDRD) Non-Af 68, BUN/Creatinine Ratio 16.4, Glucose 149 H, Calcium 7.3 L 04/03/20 06:04: WBC 10.6, RBC 3.03 L, Hgb 10.0 L, Hct 30.1 L, MCV 99.3 H, MCH 33.0 H, MCHC 33.2, RDW Std Deviation 51.4 H, RDW Coeff of Britt 14.0, Plt Count 238, MPV 9.0, Immature Gran % (Auto) 0.500, Neut % (Auto) 77.7 H, Lymph % (Auto) 9.7 L, [place] % (Auto) 10.3 H, Eos % (Auto) 1.1, Baso % (Auto) 0.7, Absolute Neuts (auto) 8.3 H, Absolute Lymphs (auto) 1.03, Nucleated RBC % 0 Current Medications Acetaminophen (Acetaminophen 325 Mg Tablet) 325 - 650 mg PO Q4H PRN PRN PRN Reason: Pain Score 1-10/10 or Headache Hydrocodone Bitart/Acetaminophen (Hydrocodone Bitartrate/Apap 5/325 Tablet) 1 - 2 tablet PO Q6H PRN PRN PRN Reason: Pain Score 1-10 Last Admin: 04/03/20 04:17 Dose: 1 tablet Documented by: Aspirin (Aspirin E.C. 81 Mg Tablet) 81 mg PO DAILY [facility] Atorvastatin Calcium (Atorvastatin Calcium 40 Mg Tablet) 40 mg PO QODAY@2200 [facility] Last Admin: 04/02/20 21:42 Dose: 40 mg Documented by: Guaifenesin (Guaifenesin 600 Mg Tablet) 600 mg PO Q12H PRN PRN Reason: CONGESTION Sodium Chloride () 1,000 mls @ 50 mls/hr IV .Q20H [facility] Last Infusion: 04/03/20 04:38 Dose: 50 mls/hr Documented by: Lisinopril (Lisinopril 20 Mg Tablet) 30 mg PO DAILY DANIEL Loratadine (Loratadine 10 Mg Tablet) 10 mg PO DAILY PRN PRN PRN Reason: ALLERGIES Morphine Sulfate (Morphine 2 Mg/Ml Syringe) 2 - 4 mg IV Q1H PRN PRN PRN Reason: Pain Score 1-10 Ondansetron HCl (Ondansetron 4 Mg/2 Ml Vial) 4 mg IV Q8H PRN PRN PRN Reason: NAUSEA Sodium Chloride (0.9% Saline Lock 10 Ml Syringe) 10 - 40 ml IV UD PRN PRN Reason: SALINE FLUSH Last Admin: 04/02/20 21:43 Dose: 10 ml Documented by: Spironolactone (Spironolactone 25 Mg Tablet) 25 mg PO DAILY [facility] Tamsulosin HCl (Tamsulosin Hcl 0.4 Mg Capsule) 0.4 mg PO DAILY@1730 [facility] Tamsulosin HCl (Tamsulosin Hcl 0.4 Mg Capsule) 0.4 mg PO DAILY@1730 [facility] STROKE Vital Signs/Narrative: Vital Signs Temp Pulse Resp BP BP Pulse Ox 04/03/20 07:00 72 04/03/20 06:00 99.3 F H 71 14 127/66 H 98 04/03/20 04:00 99.5 F H 78 12 121/65 H 97 Medical Necessity - Tobacco Use Smoking Status: Former smoker Tobacco Use: Non-smoker Assessment/Plan All Active Problems (Last Reviewed 03/30/20 @ 12:20 by Vicenta Owens) History of tonsillectomy and adenoidectomy (Acute) TIA (transient ischemic attack) (Acute) Lactic acidosis (Acute) Abdominal aortic aneurysm (AAA) (Acute) Carotid stenosis (Acute) Patient is an 85-year-old gentleman who underwent left carotid endarterectomy on on 04/02/2020 by . The hospitalist service was consulted to assist with management in fluctuation of patient's blood pressure 1. Status post Left carotid endarterectomy -Postoperative day 1. Patient postoperative orders regarding pain management wound care 2. Recent CVA -MRI obtained 03/27/2020 on demonstrated left-sided frontal and parietal strokes patient currently on recommended medications including atorvastatin aspirin as well as blood pressure medications 3. Essential blood pressure - with significant fluctuation following Surgery. Patient blood pressure has since stabilized 4. Dyslipidemia -Patient is on statin therapy, continued at home dose 5. pH ?Patient is on tamsulosin 6. DVT prophylaxis ?Defer to primary service Advance planning; did discuss with the patient regarding advanced directives as well as CODE STATUS. Did explain the various scenarios involved ( FULL CODE, DNR CCA, DNR CCA with no intubation, and DNR CC and what each meant) patient el ected to full code with CPR and intubation if warranted. Order was placed. Time spent on discussion 18 minutes. Inpatient E&M: 26385 Subs Hosp L2 Procedures: 13533 Advncd Care Plan 30 Min
[2020-04-03] MEDS: Tamsulosin HCl 0.4 MG Capsule PO (08:32)
--- NOTE | 2020-04-03 09:46 | CASEMGMT ---
SW did not complete a PHQ 9 with patient. SW spoke with Hospitalist and patient had a recent TIA or Stroke, but not a new one this visit. Nhung MARTIN MSW
[2020-04-03] MEDS: Aspirin E.C. 81 MG Tablet PO (10:05)
[2020-04-03] MEDS: Spironolactone 25 MG Tablet PO (10:05)
--- NOTE | 2020-04-03 12:03 | CASEMGMT ---
ARLIN GAYTAN assessment: Face to Face with patient for initial transition planning/care coordination assessment. RN LUKAS introduced self and role at [facility], pt voices understanding and consents to assessment at this time. Pt is sitting up in bed in no distress at this time. Pt is A/Ox4 at this time and answers all questions appropriately at this time. Care providers, pharmacy, and demographics verified at this time. Admitting dx: Carotic endarterectomy PCP: Diony Specialists: sheridan Chapin surgery Preferred [facility]acy: [facility] Insurance: MCR A, [place] Prescription Benefit: [employer] Living Will/HPOA: Pt states has LW/HPOA and is aware that they are not on file but pt states that he thought his son brought copies in but this RN LUKAS did not find any copies on the chart at this time. LNOK: Matt Arroyo, son; Trang Calhoun, daughter Living Arrangements: Pt states lives with in 1 story condo and states no concerns at home at this time. Pt states is independent with ADL's. Transportation: Pt states drives self and states no transportation concerns at this time. DME/HHC: Pt states has a cane and tub bench and states no need for any further DME at this time. Pt states no hx of HHC or SNF in the past. Pt states no concerns with going home at time of discharge. Pt states is retired. Pt states does not smoke cigarettes but does drink ETOH. Pt states no further concerns/needs at this time. CM to follow for any further discharge planning/needs. Advised pt to ask for CM if any further questions/concerns/needs arise, voices understanding. Pt Goal: Home Plan: [place]
--- NOTE | 2020-04-03 12:29 | NURSING ---
1220-Assisted pt out of bed and up into chair. Pt tolerated activity with no difficulties. Advised to call staff for assistance and not get up on own. Pt verbalized understanding. at bedside.
--- NOTE | 2020-04-03 15:13 | PHA.DC.MC ---
Addendum entered and electronically signed by Mary Hinkle 04/03/20 15:15: DC counseling performed on Flomax, Zwingle Original Note: Pharmacy Service has performed discharge medication reconciliation and counseling for this patient. The patient was counseled on the following discharge medications and changes in medications for homegoing were reviewed. The Reason for Use, instructions for use, and potential side effects were reviewed for all new medications. The patient's questions regarding all of their medications were answered. The patient was able to verbally demonstrate an understanding of their discharge medications. Home Medications aspirin 81 mg tablet,delayed release 81 mg PO DAILY 12/13/19 calcium carbonate 600 mg calcium (1,500 mg) tablet 600 mg PO QODAY 12/13/19 cetirizine 10 mg tablet 10 mg PO DAILY PRN PRN 12/13/19 guaifenesin 600 mg tablet, extended release 12 hr 600 mg PO Q12H PRN 12/13/19 lisinopril 30 mg tablet 30 mg PO DAILY 12/13/19 spironolactone 25 mg tablet 25 mg PO DAILY 12/13/19 vit C,E,zinc,copper-pbqro1w 250 mg-lutein 5 mg-zeaxanthin 1 mg capsule 1 cap PO DAILY 12/13/19 Atorvastatin Calcium [Lipitor] 40 mg PO QODAY@2200 03/29/20 Clopidogrel Bisulfate [Clopidogrel] 75 mg PO DAILY 03/29/20 Hydrocodone Bitart/Apap 5-325 [[place] 5/325] 1 tab PO Q6H PRN PRN 2 Days #6 tab 04/03/20 Tamsulosin HCl [Flomax] 0.4 mg PO DAILY@0830 #14 cap 04/03/20 The patient's discharge medication list was reviewed for discrepancies and discrepancies were resolved.
[2020-04-04 07:46] LABS: ACT Activated Clotting Time 131 sec (74-137)
[2020-04-04 07:47] LABS: ACT Activated Clotting Time 246 sec (74-137)
[2020-04-04 07:48] LABS: ACT Activated Clotting Time 241 sec (74-137)
== END 2020-04-03 16:08 | disposition home or self-care (01) | DRG 38 ==
LOC: ACINP 10:19 → MS3 16:11 → PCU 18:41
PROVIDERS: Admitting Provider Surgery; PCP Family Medicine; Referring Provider Surgery; Visit Provider Internal Medicine
PROC: 03CL0ZZ Extirpation of Matter from Left Internal Carotid Artery, Open Approach (ICD-10-PCS; CPT 35301; principal; 2020-04-02 11:10)
DX: I65.22 Occlusion and stenosis of left carotid artery (principal); I97.418 Intraoperative hemorrhage and hematoma of a circulatory system organ or structure complicating other circulatory system procedure; I71.4 Abdominal aortic aneurysm, without rupture; E78.5 Hyperlipidemia, unspecified; I10 Essential (primary) hypertension; Z87.891 Personal history of nicotine dependence; Z79.899 Other long term (current) drug therapy; Z79.82 Long term (current) use of aspirin; Z86.73 Personal history of transient ischemic attack (TIA), and cerebral infarction without residual deficits; R49.0 Dysphonia; R33.8 Other retention of urine; N40.1 Benign prostatic hyperplasia with lower urinary tract symptoms; R35.1 Nocturia
CPT/HCPCS: 80048; 85025; 85027; 85347; 88304; 88311; 99251; J7030; J7040; J7120; A4216; G0463; J2405

== ENCOUNTER → 2020-05-07 12:45 | Outpatient (CLI) | payer BC, SELFPAY ==
[2020-04-02 10:07] VITALS: BMI 26.9
--- NOTE | 2020-05-07 12:49 | CDUL_ITS ---
Reason For Study: Carotid stenosis, S/P Lt CEA Lt. Velocities/BP Prox CCA 132.1/22.5 cm/sec. Mid CCA 139.4/24.3 cm/sec. Dist CCA 135.7/18.8 cm/sec. Prox ICA 82.7/17 cm/sec. Mid ICA 79.1/17 cm/sec. Dist ICA 71.6/16.3 cm/sec. Lt. ICA/CCA = 0.61. Prox ECA 156.1/17.1 cm/sec. Lt. Vert. 63/10.2 cm/sec. Left Extracranial There is heterogeneous, irregular atherosclerotic plaque noted in the left common carotid artery. There is homogeneous, smooth atherosclerotic plaque noted in the left internal carotid artery. There is heterogeneous, irregular atherosclerotic plaque noted in the left external carotid artery. Antegrade flow is noted in the left vertebral artery. Procedure Carotid Duplex 77374. This is a Carotid Duplex examination using B-mode, color flow and specral Doppler. Exam performed in department. Interpretation Summary Postoperative changes left carotid bulb and proximal internal carotid artery with smooth intimal changes. Less than 50% stenosis of the left internal carotid artery Scattered irregular plaque of the left common carotid artery Less than 50% stenosis left external carotid artery Patent and antegrade left vertebral artery Ordering Physician: Roddy Chapin Referring Physician: Wallace Vora Performed By: Caprice Pitt RVT
== END ==
PROVIDERS: PCP Family Medicine; Referring Provider Surgery; Visit Provider Surgery
DX: I65.22 Occlusion and stenosis of left carotid artery (principal); Z98.890 Other specified postprocedural states
CPT/HCPCS: 93882

== ENCOUNTER → 2020-12-25 08:39 | Outpatient (CLI) | payer BC, SELFPAY ==
--- NOTE | 2020-12-25 08:45 | AAVD_ITS ---
Reason For Study: AAA Aorta Measurements Aorta Doppler Measurements Proximal aorta measures2.14 X 2.19cm. in cross- Peak systolic flow velocities within the proximal sectional axis. aorta measure 49.4 cm/sec. Proximal aorta measures2.06cm. in longitudinal Peak systolic flow velocities within the mid aorta axis. measure 45.9 cm/sec. Mid aorta measures3.87 X 3.99cm. in cross- Peak systolic flow velocities within the distal sectional axis. aorta measure 79.9 cm/sec. Mid aorta measures4.05cm. in longitudinal axis. Distal aorta measures2.79 X 2.72cm. in cross- sectional axis. Distal aorta measures2.83cm. in longitudinal axis. Left Iliac Artery Left iliac artery measures 1.13 X 1.17 cm. in the cross-sectional axis. Left iliac artery measures 1.13 cm. in the longitudinal axis. Peak systolic velocity in the left iliac artery measures 35.4 cm/sec. Right Iliac Artery Right iliac artery measures 1.16 X 1.27 cm. in the cross-sectional axis. Right iliac artery measures 1.18 cm. in the longitudinal axis. Peak systolic velocity in the right iliac artery measures 46.8 cm/sec. Procedure Aorta IVC Iliac vasculature or bypass grafts 12504. Technically difficult study. Exam performed in department. VL/Abd Aortic/IVC Duplex scan Interpretation Summary Mid abdominal aortic aneurysm measuring 3.87 x 3.99 cm in diameter Right common iliac measuring 1.16 x 1.27 cm diameter and left common iliac phillip uring 1.13 x 1.17 cm in diameter. Normal velocities are noted in the abdominal aorta and iliacs. This examination is noted to be technically difficult Ordering Physician: Roddy Chapin Referring Physician: Wallace Vora Performed By: Jamilah Pierce, RDCS, RVT
== END ==
PROVIDERS: PCP Family Medicine; Referring Provider Surgery; Visit Provider Surgery
DX: I71.4 Abdominal aortic aneurysm, without rupture (principal)
CPT/HCPCS: 93978

== ENCOUNTER 2021-04-03 08:40 | Outpatient (CLI) | payer BC, SELFPAY ==
--- NOTE | 2021-04-03 08:56 | CDU_ITS ---
Reason For Study: STENOSIS Rt. Velocities/BP Lt. Velocities/BP Prox CCA 76/20 cm/sec. Prox CCA 99.7/28.5 cm/sec. Mid CCA 74.7/17.3 cm/sec. Mid CCA 130.8/32.1 cm/sec. Dist CCA 60.4/18.6 cm/sec. Dist CCA 123.5/34.0 cm/sec. Prox ICA 82.5/17.3 cm/sec. Prox ICA 75.2/19.5 cm/sec. Mid ICA 82.5/22.6 cm/sec. Mid ICA 129/42.5 cm/sec. Dist ICA 56.5/14.7 cm/sec. Dist ICA 92.5/28.2 cm/sec. Rt. ICA/CCA = 1.1. Lt. ICA/CCA = 1.0. No obtainable doppler. Prox ECA 105.6/15.0 cm/sec. Rt. Vert. 57.8/17.3 cm/sec. Lt. Vert. 27.2/7.4 cm/sec. Right Extracranial There is homogeneous, smooth atherosclerotic plaque noted in the right common carotid artery. There is heterogeneous, irregular atherosclerotic plaque noted in the right internal carotid artery. There is heterogeneous, irregular atherosclerotic plaque noted in the right external carotid artery. Antegrade flow is noted in the right vertebral artery. There is heterogeneous, irregular atherosclerotic plaque noted in the right bulb. Left Extracranial There is heterogeneous, irregular atherosclerotic plaque noted in the left common carotid artery. There is heterogeneous, smooth atherosclerotic plaque noted in the left internal carotid artery. There is homogeneous, smooth atherosclerotic plaque noted in the left external carotid artery. Antegrade flow is noted in the left vertebral artery. There is heterogeneous, irregular atherosclerotic plaque noted in the left bulb. Procedure Carotid Duplex 79496. The study was technically difficult. Exam performed in department. VL/Carotid Duplex Ultrasound Interpretation Summary Irregular calcific plaque in the proximal right internal carotid artery with le ss than 50% stenosis No flow in the right external carotid artery Postoperative changes of the left carotid bulb and proximal internal carotid ar teena with very minimally elevated velocity within the left mid internal carotid artery likely diameter change in less than 50% stenosis Less than 50% stenosis left external carotid artery Patent antegrade vertebrals bilaterally Ordering Physician: Roddy Chapin Referring Physician: MARIA LUISA MORALES Performed By: Vanessa Bhandari RDCS, RVT
== END 2021-04-03 23:59 | disposition short-term general hospital (02) ==
PROVIDERS: PCP Family Medicine; Referring Provider Surgery; Visit Provider Surgery
DX: I65.29 Occlusion and stenosis of unspecified carotid artery (principal)
CPT/HCPCS: 93880

== ENCOUNTER 2021-12-02 11:42 | Observation (INO) | payer BC, SELFPAY ==
[2021-12-02] VITALS (13 sets, daily range): BP systolic 82–183; BP diastolic 53–100; PULSE 60–90; RESP 16–20; TEMP 36.3–36.7; O2SAT 94–98; BMI 28.7; BMI 28.8
--- NOTE | 2021-12-02 11:43 | ED.RN ---
Dr Keen at bedside assessing pt.
--- NOTE | 2021-12-02 11:49 | EKG12_ITS ---
Test Reason : NEURO SX Blood Pressure : / mmHG Vent. Rate : 077 BPM Atrial Rate : 077 BPM P-R Int : 186 ms QRS Dur : 126 ms QT Int : 382 ms P-R-T Axes : 068 041 049 degrees QTc Int : 432 ms Normal sinus rhythm Right bundle branch block Cannot rule out inferior infarct, age undetermined Abnormal ECG Confirmed by SERGIO SILVESTRE, DENA ([id number]), sound editor JOEY COOLEY ([id number]) on 12/03/2021 1:12:04 PM Referred By: JOSH Confirmed By:DENA HILL MD
--- NOTE | 2021-12-02 11:49 | CT_ITS ---
STUDY: CT HEAD STROKE PROTOCOL W/O CONTRAST INJECTION REASON FOR EXAM: Male, 86 years old. Neuro deficit, acute, stroke suspected RADIATION DOSAGE (If Supplied By Facility): CTDIvol = ( 44.99 ) mGy, DLP = ( 762.36 ) mGycm TECHNIQUE: Transaxial CT imaging of the brain was performed without administration of intravenous contrast material. Individualized dose optimization techniques were used for this CT. COMPARISON: Comparison is made with prior study dated 03/27/2020. FINDINGS: Normal soft tissue structures. Normal calvarium. There is mild cerebral atrophy with widening of the extra-axial spaces and ventricular dilatation. There are areas of decreased attenuation within the white matter tracts of the supratentorial brain, consistent with microvascular disease changes. There are small punctate calcifications of the basal ganglia which are seen in the aging brain as a normal variant. Normal brainstem. Normal cerebellum. There is no intracranial hemorrhage. There are no findings of an acute ischemic infarction. There is a 1 cm polyp or retention cyst along the medial inferior aspect of the right maxillary sinus. ASPECT score: 10 CT/STROKE Brain/Head without Cont IMPRESSION: Chronic involutional changes of the brain. N.B. : The above Results were Read Back by Hardy Casas MD to Wallace Keen and understanding confirmed on 12/02/2021 12:54:32 (ET). Electronically Signed: Hardy Casas MD at 12:55 EDT ,
--- NOTE | 2021-12-02 11:49 | RAD_ITS ---
STUDY: X-RAY CHEST REASON FOR EXAM: Male, 86 years old. Neuro deficit, acute, stroke suspected TECHNIQUE: Single AP portable view of the chest. COMPARISON: Comparison is made with prior study dated 03/27/2020. FINDINGS: EKG electrodes are seen. Hyperinflation. Stable mild increased linear markings at the lung bases suggestive of scarring. There is no demonstrated pleural abnormality. Normal size heart. Normal mediastinum and mj. Normal visualized pulmonary arteries. There is atherosclerotic tortuosity of the aortic arch and descending thoracic aorta. There are diffuse degenerative changes of the visualized thoracic spine. Normal visualized ribs, clavicles, and shoulders. There is no demonstrated abnormality of the visualized soft tissue structures of the upper abdomen. RAD/Chest 1 View IMPRESSION: Hyperinflation. Stable mild increased linear markings at the lung bases suggestive of scarring. Electronically Signed: Hardy Casas MD at 12:52 EDT ,
--- NOTE | 2021-12-02 11:50 | EDS_ITS ---
HPI History of Present Illness Chief Complaint: Neuro S/Sx Detail of Chief Complaint: Off balance. Confusion resolved. Informant: patient Onset/Context/Timing Onset: Today and Hours Quality and Location: Positive for Difficulty with Ambulation; Negative for Right Facial Droop, Left Facial Droop, Right Face Paresthesia, Left Face Parasthesia, Right Arm Parasthesia, Left Arm Parasthesia, Right Leg Parasthesia, Left Leg Parasthesia, Right Arm Weakness, Left Arm Weakness, Right Leg Weakness, Left Leg Weakness, Slurred Speech, Expressive Aphasia or Receptive Aphasia Onset: Confusion. Woke up with the symptoms. Current Severity: Mild Maximum Severity: Mild Associated Symptoms Associated Symptoms: Negative for Headache, Nausea, Vomiting or Chest Pain Narrative Narrative: 86-year-old male in March 2019 had a stroke and had a carotid endarterectomy. History of prostate cancer treated with radiation therapy. States he went to bed last night he was fine when he woke up this morning he felt disoriented and off balance the disorientation lasted about half an hour. He still have a little problem with his balance. He denies any headache or fall. He has not had any recent illness. He denies any change in his speech or vision. No we akness to his arms or legs. He has had similar symptoms before with a stroke. He feels much better now than he did at 730. Prior similar symptoms: Yes Recent Illness/Hospitalization: No [facility] Medical History (Updated 12/02/21 @ 14:[address] Cristian Keen MD) Abdominal aortic aneurysm (AAA) Carotid stenosis Hyperlipidemia Hypertension Lactic acidosis TIA (transient ischemic attack) Home Medications aspirin 81 mg tablet,delayed release (Adult Aspirin Regimen) 81 mg PO DAILY heart health 12/13/19 [History Last Taken 04/02/20] calcium carbonate 600 mg calcium (1,500 mg) tablet (Calcium) 600 mg PO QODAY SUPPLEMENT 12/13/19 [History Last Taken 03/24/20] cetirizine 10 mg tablet (Zyrtec) 10 mg PO DAILY PRN PRN Allergies 12/13/19 [History Last Taken Unknown] guaifenesin 600 mg tablet, extended release 12 hr (Mucinex) 600 mg PO Q12H PRN Congestion 12/13/19 [History Last Taken 03/27/20] lisinopril 30 mg tablet 30 mg PO DAILY bp 12/13/19 [History Last Taken 04/02/20] spironolactone 25 mg tablet 25 mg PO DAILY water pill 12/13/19 [History Last Taken 03/27/20] vit C,E,zinc,copper-tljav5o 250 mg-lutein 5 mg-zeaxanthin 1 mg capsule (Ocuvite Adult 50 Plus) 1 cap PO DAILY SUPPLEMENT 12/13/19 [History Last Taken 04/02/20] atorvastatin 40 mg tablet 20 mg PO QODAY@2200 cholesterol 03/29/20 [History Last Taken Unknown] Allergy/AdvReac Type Severity Reaction Status Date / Time No Known Allergies Allergy Verified 12/02/21 11:48 Family History Mother CVA (cerebral vascular accident) Surgical History History of tonsillectomy and adenoidectomy Social History Smoking Status: Former smoker alcohol intake: current alcohol intake frequency: a few times a month substance use type: does not use ROS ROS ED ROS Narrative Denies recent illness. Confusion and balance problems today. Review of Systems ROS Unobtainable: Denies due to encephalopathy Constitutional Constitutional ED: Denies chills or fever(s) Eyes Eyes: Denies blurry vision ENT ENT ED: Denies ear pain Cardiovascular Cardiovascular: Denies chest pain or palpitations Respiratory/Chest Respiratory/Chest: Denies cough or dyspnea Gastrointestinal Gastrointestinal: Denies abdominal pain Genitourinary Genitourinary ED: Denies dysuria or hematuria Musculoskeletal Musculoskeletal: Denies arthralgias Integumentary Denies abscess Neurologic Neurologic: Denies headache(s) Psychiatric Psychiatric: Denies anxiety Endocrine Endocrinology: Denies polydipsia Hematologic/Lymphatic Hematologic/Lymphatic: Denies easy bleeding Allergic/Immunologic Allergic/Immunologic ED: Denies mouth swelling or urticaria EXAM Physical Exam Narrative Exam Narrative: 86-year-old male no acute distress. Vital signs stable afebrile. Initial blood pressure 183/100. Pulse ox 95% on room air no hypoxia. H EENT exam unremarkable atraumatic. Pupils round reactive light. No facial droop. Normal speech. No trauma. Lungs clear to auscultation. Heart regular rhythm rate about 90 no murmur. Chest wall nontender. Abdomen soft nontender. Moving all 4 extremities. 5 out of 5 temper mill roller strength bilaterally. Dorsi plantarflexion intact. Neurologically is awake and alert. He knew the year and president. He initially said in June for the month. He has no focal motor deficits. No weakness. Fingertip to nose within normal limits. Normal temper mill roller strength. Normal dorsi plantar flexion. No drift of upper or lower extremities. Normal speech. Const Vital Signs: 12/02/21 11:44 12/02/21 11:52 12/02/21 11:52 Temperature 97.5 F L Temperature Source Temporal Pulse Rate 90 88 Respiratory Rate 16 16 Blood Pressure 183/100 H 180/81 H Blood Pressure Mean 127 114 Pulse Ox 95 95 Oxygen Delivery Method Room Air Room Air Room Air 12/02/21 13:08 12/02/21 13:30 12/02/21 13:51 Temperature Temperature Source Pulse Rate 60 65 73 Respiratory Rate 17 17 16 Blood Pressure 82/65 L 106/62 107/53 L Blood Pressure Mean 70 76 71 Pulse Ox 95 98 97 Oxygen Delivery Method Room Air Room Air Positive well nourished and well developed; Negative for obese, cachectic, contractures or unkempt General Appearance ED: well developed and NAD; Negative for unkempt, cachectic or contractures Nutritional Appearance: Negative for cachectic or obese HEENT Reports moist mucous membranes; Denies dry mucous membranes atraumatic; Negative for trauma Nose: Negative for other Mouth ED: No dry mucous membranes Mouth: No dry mucous membranes Eyes PERRL and EOMs intact bilaterally General Eye ED: Negative for pale conjunctiva or scleral icterus Neck no lymphadenopathy, supple and no JVD General: Negative for tenderness Thyroid: Negative for other Chest Wall inspection of chest normal and palpation of chest normal Chest: Negative for other Resp normal respiratory effort and clear to auscultation bilaterally Effort and Inspection: Negative for retractions Auscultation: Negative for rales, rhonchi or wheezes Cardio no murmurs Rate: regular rate; Negative for bradycardia or tachycardic Rhythm: regular rhythm Heart Sounds: Negative for S1 normal or S2 normal GI normal to inspection, nondistended, normoactive bowel sounds, soft to palpation, non-tender, non-distended and no masses Inspection: Negative for abdominal distention Palpation: Negative for tender or guarding Back/Spine no CVA tenderness General Back: Negative for CVA tenderness Cervical Spine: Negative for cervical spine tenderness Thoracic Spine / Upper Back: Negative for thoracic spinal tenderness Lumbar Spine / Lower Back: Negative for lumbar spinal tenderness Extremity normal to inspection General Extremety ED: Negative for deformity, edema or tenderness General Extremity: Negative for deformity or edema Neuro oriented x3 and CN's II-XII intact bilaterally Sensorium / Orientation: alert, oriented to person, oriented to place and oriented to time; Negative for confused Speech: speech normal Motor Exam: strength 5/5 throughout Psych mental status grossly normal Appearance: Negative for unkempt Attitude: No agitated Mood & Affect: Negative for depressed Attention / Concentration: Negative for other Skin no wounds General Skin Exam: Negative for jaundice Lesions: no lesions Rashes: no rashes Trauma: Negative for abrasion NIHSS NIHSS Initial: 1a Level of Consciousness: 0 1c LOC Commands (Only score 1st attempt): 0 2 Best Gaze (If aphasic, use reflexive mvmts.): 0 3 Visual: 0 4 Facial Palsy: 0 5 Motor Arm Right (UN = amputation/fusion): 0 5 Motor Arm Left: 0 6 Motor Leg Right: 0 6 Motor Leg Left: 0 7 Limb ataxia (Only + if out of proportion): 0 8 Sensory (Aphasia/stupor=0 or 1, coma=2): 0 9 Best Language: 0 10 Dysarthria (mute, coma=2, intubated=UN): 0 11 Extinction and Inattention (only scored if +): 0 Total Score: 0 MDM MDM MDM Narrative Medical decision making narrative: 86-year-old male history of prior stroke with a carotid endarterectomy. On Plavix. Today woke up with some confusion which is since resolved but problems with ataxia. Denies any headache. His exam lying in bed he is an NIH is 0. He only abnormalities he could not tell me the month. But he knew the year and president. He has normal speech and motor function. He will undergo a stroke work-up including a CTA of his head and neck. Currently has an NIH is 0. He is not a tPA candidate. Patient is doing well. He went to CAT scan for his CAT scan with contrast of his head neck due to the TIA symptoms and his prior carotid endarterectomy. As they were injecting the contrast the IV in his left forearm below. He had extravasation of the contrast into the soft tissue of his forearm. He got nauseated and threw up and had episodes of bradycardia suspect secondary to vasovagal bradycardia. On repeat exam he is diaphoretic and pale. He does have a palpable pulse. Currently his pressures systolically around 90. Will be given Zofran for nausea once he reestablish an IV. 500 fluid bolus and reassess. He is awake and alert. He does have an area of extravasation of his left forearm but has a distal pulse and normal temper mill roller strength in his left hand. No signs of compartment. Repeat exam patient is doing much better at 2:15 PM. He is awake alert. His heart rates in the 70s. Current blood pressure is 126/80. He has infiltration in his left proximal forearm but he has normal strength and radial pulse in his left hand. He looks clinically much improved. I spoke with hospitalist he will be admitted.. Patient and are comfortable with the plan. Lab Data Attestation: I reviewed the patient's lab results. Lab results narrative: CBC shows a white count 9.1. H&H 14.6 and 41. PT/INR and PTT are normal. Electrolytes show sodium 133. Anion gap at 9. BUN and creatinine is 16 and 1.3. Glucose of 128. Troponin of 10. His initial CAT scan without contrast showed no acute abnormality. Labs: Laboratory Results - last 24 hr 12/02/21 12/02/21 12/02/21 11:42 12:04 12:04 WBC 9.1 RBC 4.29 L Hgb 14.6 Hct 41.3 MCV 96.3 H MCH 34.0 H MCHC 35.4 RDW Std Deviation 47.7 H RDW Coeff of Britt 13.3 Plt Count 252 MPV 8.2 Immature Gran % (Auto) 0.500 Neut % (Auto) 75.0 H Lymph % (Auto) 13.8 L [place] % (Auto) 8.1 Eos % (Auto) 1.2 Baso % (Auto) 1.4 H Absolute Neuts (auto) 6.8 Absolute Lymphs (auto) 1.26 Nucleated RBC % 0 PT 12.6 INR 1.0 APTT 27.9 Sodium Potassium Chloride Carbon Dioxide Anion Gap BUN Creatinine Estim Creat Clear Calc Est GFR (MDRD) Af Amer Est GFR (MDRD) Non-Af BUN/Creatinine Ratio Glucose Calcium Troponin I High Sens POC Glucose 133 H 12/02/21 12:04 WBC RBC Hgb Hct MCV MCH MCHC RDW Std Deviation RDW Coeff of Britt Plt Count MPV Immature Gran % (Auto) Neut % (Auto) Lymph % (Auto) [place] % (Auto) Eos % (Auto) Baso % (Auto) Absolute Neuts (auto) Absolute Lymphs (auto) Nucleated RBC % PT INR APTT Sodium 133 L Potassium 4.3 Chloride 97 L Carbon Dioxide 27.0 Anion Gap 9 BUN 16 Creatinine 1.31 H Estim Creat Clear Calc 41.79 Est GFR (MDRD) Af Amer 67 Est GFR (MDRD) Non-Af 55 L BUN/Creatinine Ratio 12.2 Glucose 128 H Calcium 9.6 Troponin I High Sens 10 POC Glucose Radiography Diagnostic Testing: Clinical Impression(s) from Imaging Studies Chest X-Ray 12/02/21 11:49 IMPRESSION: Hyperinflation. Stable mild increased linear markings at the lung bases suggestive of scarring. Electronically Signed: Hardy Casas MD at 12:52 EDT , Rhythm Strip Rhythm Strip: Sinus Rhythm Rate: 77 Ectopy: None EKG Initial EKG: Attestation: I personally reviewed and interpreted this EKG as follows: Interpretation: Sinus Rhythm, No Acute Injury Pattern and Sinus Bradycardia Comments: Initial EKG was normal sinus rhythm rate of 77 with a right bundle branch block. No signs of MT or ischemia. Follow-up EKG: Attestation: I personally reviewed and interpreted this EKG as follows: Interpretation: Sinus Rhythm and No Acute Injury Pattern Comments: This EKG occurred after the infiltration of the IV contacted exam and episodes of bradycardia. He had a sinus bradycardia rate of 53. No acute signs of MT or ischemia. Right bundle branch block. No significant change other than the rate from the prior 1. Treatment and Re-Evaluation Narrative: Chest x-ray, portable, single view shows no acute abnormality. Interpreted by myself and radiologist. Normal cardiac silhouette. Lungs unremarkable. Discharge Plan Dx/Rx/DC Orders Clinical Impression: Transient ischemic attack, acute, Acute confusion, Ataxia, History of cardioembolic stroke, History of prostate cancer Disposition Disposition: Acute Care Hospital [facility]
[2021-12-02 12:06] LABS: Bedside Glucose 133 mg/dL (74-106)
[2021-12-02 12:09] LABS: Absolute Lymphocyte Count 1.26 X10^3/uL (0.83-4.51); Absolute Neutrophil Count 6.8 X10^3/uL (2.0-7.7); Basophil# 0.13 X10^3/uL; Basophil% 1.4 % (0-1); Eosinophil# 0.11 X10^3/uL; Eosinophils% 1.2 % (0-5); Hematocrit 41.3 % (40-54); Hemoglobin 14.6 g/dL (13.0-16.5); Lymphocyte # 1.26 X10^3/ul (0.83-4.51); Lymphocyte % 13.8 % (19-41); Mean Corp Hgb Conc 35.4 g/dL (32-36); Mean Corpuscular Volume 96.3 fL (80-94); Mean Platelet Vol. 8.2 fl (6.2-12.0); Monocyte# 0.74 X10^3/uL; Monocyte% 8.1 % (0-10); NRBC Flagged by Analyzer 0 % (0-5); Neutrophil # 6.84 X10^3/uL (2.7-7.7); Platelet Count 252 K/mm3 (150-450); RBC Distribution Width CV 13.3 % (11.6-14.6); RBC Distribution Width SD 47.7 fl (35.1-43.9); Red Blood Count 4.29 M/mm3 (4.6-6.2); White Blood Count 9.1 K/mm3 (4.4-11.0)
[2021-12-02 12:20] LABS: Prothrombin Time (Protime)PT. 12.6 SECONDS (11.7-14.9)
[2021-12-02 12:21] LABS: Partial Thromboplast Time 27.9 Seconds (24.1-36.2)
[2021-12-02 12:28] LABS: Anion Gap 9 (5-15); BUN 16 mg/dL (7-18); BUN/Creat Ratio 12.2 RATIO (10-20); Calcium,Total 9.6 mg/dL (8.5-10.1); Chloride 97 mmol/L (98-107); Creatinine, Serum 1.31 mg/dL (0.70-1.30); EST Glomerular Filtration Rate 55 mL/min (>60); Est Glom Filt Rate - Afr Amer 67 mL/min (>60); Estimated Creatinine Clearance 41.79 ml/min; Glucose 128 mg/dL (74-106); Potassium 4.3 mmol/L (3.5-5.1); Sodium Level 133 mmol/L (136-145); Troponin-I HS 10 pg/mL (3.0-78.0)
--- NOTE | 2021-12-02 13:04 | EKG12_ITS ---
Test Reason : REPEAT Blood Pressure : / mmHG Vent. Rate : 053 BPM Atrial Rate : 053 BPM P-R Int : 188 ms QRS Dur : 130 ms QT Int : 432 ms P-R-T Axes : 051 050 056 degrees QTc Int : 405 ms Sinus bradycardia Right bundle branch block Cannot rule out Inferior infarct , age undetermined Abnormal ECG Confirmed by SERGIO SILVESTRE, DENA ([id number]), supervising film or videotape editor JOEY COOLEY ([id number]) on 12/03/2021 1:12:19 PM Referred By: JOSH Confirmed By:DENA HILL MD
[2021-12-02] MEDS: Ondansetron ODT 4 MG Tablet PO (13:07)
--- NOTE | 2021-12-02 13:10 | ED.RN ---
PT DOWN IN CT. RADIOLOGY STAFF HIT STAFF ASSIST BUTTON. THIS RN RESPONEDED TO RADIOLOGY DEPARTMENT. PER STAFF, PT BRADICARDIC WITH HR IN THE 30'S HAD SYNCOPAL EPISODE LASTING A FEW SECONDS. PT AWAKE ON THIS RN ARRIVAL TO CT. PT IV EXTRAVASATED BY IV CONTRAST. PT TURNED ON SIDE AND SUCTIONED NEEDED. PT A+OX3 PALE DIAPHORETIC. UNABLE TO OBTAIN IV IN CT. PT MOVED FROM CT BACK TO BED AND RETURNED TO EMERGENCY DEPARTMENT. 22G IV PLACED IN RIGHT HAND. PT PLACED ON DEFIBRILLATOR PADS. COOL CLOTH APPLIED TO FOREHEAD. DR. SHAW AT BEDSIDE TO EVALUATE PT. FAMILY INFORMED OF CARE AND REMIAN AT BEDSIDE WITH PT.
--- NOTE | 2021-12-02 14:30 | HP.PCM.HOS_ITS ---
[facility] - General General Date of Service: 12/02/21 Chief Complaint: Confusion and dizziness HPI Narrative DAMI SANCHEZ, is a 86 M who presents after awakening today with disorientation and dizziness. Patient states that he was not able to think clearly such that he was not able to take his medications appropriately. He denies any slurred speech nor any receptive aphasia. Patient was also unsteady as well. These are symptoms similar to his prior stroke which made him concerned enough to come into the hospital. Patient's symptoms lasted for about 30 minutes and then resolved. Patient was in the process of getting evaluated for a stroke and was undergoing a CT angiogram where the contrast extravasation into his left upper extremity which caused him to have a vasovagal near syncopal event. A CODE BLUE was called incorrectly that was changed over to a rapid response team. By the time the team arrived the patient was back to his normal self. CT angiogram was canceled due to the extravasation of contrast in his left upper extremity. [facility] Medical History (Updated 12/02/21 @ 14:[address] Catracho Kim, ) Abdominal aortic aneurysm (AAA) Carotid stenosis Hyperlipidemia Hypertension Lactic acidosis TIA (transient ischemic attack) Home Medications aspirin 81 mg tablet,delayed release (Adult Aspirin Regimen) 81 mg PO DAILY heart health 12/13/19 [History Last Taken 04/02/20] calcium carbonate 600 mg calcium (1,500 mg) tablet (Calcium) 600 mg PO QODAY SUPPLEMENT 12/13/19 [History Last Taken 03/24/20] cetirizine 10 mg tablet (Zyrtec) 10 mg PO DAILY PRN PRN Allergies 12/13/19 [History Last Taken Unknown] guaifenesin 600 mg tablet, extended release 12 hr (Mucinex) 600 mg PO Q12H PRN Congestion 12/13/19 [History Last Taken 03/27/20] lisinopril 30 mg tablet 30 mg PO DAILY bp 12/13/19 [History Last Taken 04/02/20] spironolactone 25 mg tablet 25 mg PO DAILY water pill 12/13/19 [History Last Taken 03/27/20] vit C,E,zinc,copper-nyvhc8h 250 mg-lutein 5 mg-zeaxanthin 1 mg capsule (Ocuvite Adult 50 Plus) 1 cap PO DAILY SUPPLEMENT 12/13/19 [History Last Taken 04/02/20] atorvastatin 40 mg tablet 20 mg PO QODAY@2200 cholesterol 03/29/20 [History Last Taken Unknown] qgprzmmf-pls-ptjos acid 300 mcg-lycopene 600 mcg-lutein 300 mcg tablet (Centrum Silver Men) 1 tab PO DAILY health maintenance 12/02/21 [History Last Taken 12/02/21] Allergy/AdvReac Type Severity Reaction Status Date / Time No Known Allergies Allergy Verified 12/02/21 11:48 Family History Mother CVA (cerebral vascular accident) Surgical History History of tonsillectomy and adenoidectomy Social History Smoking Status: Former smoker alcohol intake: current alcohol intake frequency: a few times a month substance use type: does not use ROS ROS Narrative Patient had some nausea after the CAT scan incident. Denies any diaphoresis otherwise. All review of systems were negative except as mentioned above in the history of present illness and the other review of systems. Vital Signs Vital Signs Vital Signs: 12/02/21 11:44 12/02/21 11:52 12/02/21 11:52 Temperature 36.4 C L Temperature Source Temporal Pulse Rate 90 88 Respiratory Rate 16 16 Blood Pressure 183/100 H 180/81 H Blood Pressure Mean 127 114 Pulse Ox 95 95 Oxygen Delivery Method Room Air Room Air Room Air 12/02/21 13:08 12/02/21 13:30 12/02/21 13:51 Temperature Temperature Source Pulse Rate 60 65 73 Respiratory Rate 17 17 16 Blood Pressure 82/65 L 106/62 107/53 L Blood Pressure Mean 70 76 71 Pulse Ox 95 98 97 Oxygen Delivery Method Room Air Room Air 12/02/21 14:23 Temperature 36.4 C L Temperature Source Oral Pulse Rate 71 Respiratory Rate 18 Blood Pressure 124/66 H Blood Pressure Mean 85 Pulse Ox 96 Oxygen Delivery Method Weight Weight: 90.7 kg Body Mass Index (BMI) 28.7 Physical Exam Const alert and no apparent distress HEENT normocephalic, head/scalp atraumatic, hearing grossly normal bilaterally and moist oral mucous membranes Eyes PERRL and EOMs intact bilaterally Neck no lymphadenopathy Resp normal respiratory effort, no retractions and no use of accessory muscles Cardio regular rate, regular rhythm, S1 normal heart sound and S2 normal heart sound GI normal to inspection, nondistended, normoactive bowel sounds, soft to palpation and non-tender Extremity normal to inspection and full ROM Neuro oriented x3, CN's II-XII intact bilaterally, moves all extremities and no focal motor deficits Sensorium / Orientation: awake and alert Coordination / Balance: [id number] test normal and [id number] test normal Speech: speech normal Psych affect normal Results Lab / Micro Data Attestation: I reviewed the patient's lab results. Result Diagrams: 12/02/21 12:04 12/02/21 12:04 Labs: Laboratory Results - last 24 hr 12/02/21 11:42: POC Glucose 133 H 12/02/21 12:04: WBC 9.1, RBC 4.29 L, Hgb 14.6, Hct 41.3, MCV 96.3 H, MCH 34.0 H, MCHC 35.4, RDW Std Deviation 47.7 H, RDW Coeff of Britt 13.3, Plt Count 252, MPV 8.2, Immature Gran % (Auto) 0.500, Neut % (Auto) 75.0 H, Lymph % (Auto) 13.8 L, [place] % (Auto) 8.1, Eos % (Auto) 1.2, Baso % (Auto) 1.4 H, Absolute Neuts (auto) 6.8, Absolute Lymphs (auto) 1.26, Nucleated RBC % 0 12/02/21 12:04: PT 12.6, INR 1.0, APTT 27.9 12/02/21 12:04: Sodium 133 L, Potassium 4.3, Chloride 97 L, Carbon Dioxide 27.0, Anion Gap 9, BUN 16, Creatinine 1.31 H, Estim Creat Clear Calc 41.79, Est GFR (MDRD) Af Amer 67, Est GFR (MDRD) Non-Af 55 L, BUN/Creatinine Ratio 12.2, Glucose 128 H, Calcium 9.6, Troponin I High Sens 10 Rhythm Strip Rhythm Strip: Sinus Rhythm Rate: 77 Ectopy: None EKG Initial EKG: Attestation: I personally reviewed and interpreted this EKG as follows: Prior EKG tracings: available for review EKG Rhythm Intrepretation: Sinus Rhythm (Right bundle branch block) Radiology Impression Chest X-Ray 12/02/21 11:49 IMPRESSION: Hyperinflation. Stable mild increased linear markings at the lung bases suggestive of scarring. Electronically Signed: Hardy Casas MD at 12:52 EDT , Assessment & Plan Assessment/Plan (1) Ataxia: PLAN: Etiology could be a recurrent stroke or benign paroxysmal positional vertigo. Check MRI of the brain, MRA of the head neck and 2D echocardiogram. If stroke is confirmed on MRI, then would recommend SOC teleneurology co nsultation. (2) Adverse reaction to contrast media: PLAN: Extravasation of contrast media in LUE No clinical evidence of compartment syndrome. Vascularly and neurologically intact left upper extremity. Elevate left upper extremity and apply ice to the affected region. (3) Near syncope: PLAN: Secondary to Extravasation of contrast media in LUE No additional work-up for this at this time. PLAN: Plan Chronic condition * AAA: On December 25, 2020 it measured 3.87 cm x 3.99 cm. Patient is to have follow-up imaging as outpatient. * Peripheral arterial disease: Patient has had a history of carotid neurectomy on the left. Continue with aspirin and statin * Hypertension: Stable. Continue with lisinopril. VTE prophylaxis: Not indicated given current observation status. CODE STATUS: Addressed with the patient. Patient wishes to be DNR Comfort Care arrest. Discussed with patient's family at bedside. Charges/Coding Visit Charges OBSV E&M: 06965 Initial observation care L3
--- NOTE | 2021-12-02 15:02 | MRI_ITS ---
EXAM: MR ANGIOGRAPHY NECK WITHOUT INTRAVENOUS CONTRAST CLINICAL INDICATION: vertigo TECHNIQUE: Routine carotid MR angiogram protocol was performed without intravenous contrast. 3D reconstructions were reviewed. Nascet criteria using the distal ICAs for comparison were used for evaluation of stenoses. This report was created using [employer] report [employer] technology. COMPARISON: Ct done Dec 20 2019 2:53pm FINDINGS: RIGHT COMMON CAROTID ARTERY: Unremarkable. No occlusion or significant stenosis. No dissection. RIGHT INTERNAL CAROTID ARTERY: Unremarkable. Extracranial segment is patent with no occlusion or significant stenosis. No dissection. RIGHT EXTERNAL CAROTID ARTERY: Unremarkable. No occlusion. RIGHT VERTEBRAL ARTERY: Unremarkable. No occlusion or significant stenosis. No dissection. LEFT COMMON CAROTID ARTERY: Unremarkable. No occlusion or significant stenosis. No dissection. LEFT INTERNAL CAROTID ARTERY: Unremarkable. Extracranial segment is patent with no occlusion or significant stenosis. No dissection. LEFT EXTERNAL CAROTID ARTERY: Unremarkable. No occlusion. LEFT VERTEBRAL ARTERY: Unremarkable. No occlusion or significant stenosis. No dissection. GREAT VESSELS OF AORTIC ARCH: here is calcified plaque formation of the right cavernous carotid artery, with a moderate stenosis (50-75%). There is calcified plaque formation of the left cavernous carotid artery, with a moderate stenosis (50-75%). ALL ABOVE CRITERIA BY NASCET. OTHER FINDINGS: . CAROTID STENOSIS REFERENCE USING NASCET CRITERIA: % ICA stenosis = (1 - narrowest ICA diameter/diameter of distal cervical ICA) x 100. Mild - <50% stenosis. Moderate - 50-69% stenosis. Severe - 70-94% stenosis. Near occlusion - 95-99% stenosis. Occluded - 100% stenosis. MRI/MRA Neck without Contrast IMPRESSION: here is calcified plaque formation of the right cavernous carotid artery, with a moderate stenosis (50-75%). There is calcified plaque formation of the left cavernous carotid artery, with a moderate stenosis (50-75%). ALL ABOVE CRITERIA BY NASCET. Electronically Signed: Pavel Bello MD at 21:32 EDT ,
--- NOTE | 2021-12-02 15:02 | MRI_ITS ---
STUDY: MR Brain W/O Contrast 12/02/2021 9:26 PM REASON FOR EXAM: Male, 86 years old. vertigo COMPARISON: CT head done earlier TECHNIQUE: Standardized multiplanar fat and water weighted pulse sequences were obtained. MR Brain W/O Contrast FINDINGS: There is mild cerebral atrophy with widening of the extra-axial spaces and ventricular dilatation. There are a limited number of small white matter hyperintensities, distributed throughout the deep white matter tracts of the cerebral hemispheres, consistent with mild chronic white matter ischemic changes. There is mild prominence of the vermian folia, consistent with atrophy of the vermis. The cerebellar hemispheres are normal. Normal bilateral basal ganglia. Normal thalami. There is no extra-axial fluid accumulation. Normal flow voids within the major intracranial circulation suggesting patency by spin echo criteria. Normal sella turcica, pituitary gland, infundibular stalk, optic chiasm and hypothalamus. Normal tectal plate and pineal gland. Normal midbrain, shala and medulla. Normal basal cisterns. Normal bilateral temporal bones. Normal bilateral internal auditory canals. No demonstrated orbital abnormality, within the constraints of a routine brain study. Normal visualized paranasal sinuses. Normal calvarium and skull base. Normal visualized soft tissue structures. Normal visualized upper cervical spine. Aspect score 10 MRI/Brain without Contrast IMPRESSION: (NOT LISTED IN ORDER OF SIGNIFICANCE) There are no acute intracranial findings. Electronically Signed: Pavel Bello MD at 21:27 EDT ,
--- NOTE | 2021-12-02 15:02 | MRI_ITS ---
EXAM: MR ANGIOGRAPHY HEAD WITHOUT INTRAVENOUS CONTRAST CLINICAL INDICATION: vertigo TECHNIQUE: Routine [place]/brain 3D time of flight MR angiogram protocol was performed without intravenous contrast. This report was created using [employer] report [employer] technology. COMPARISON: CT head done earlier FINDINGS: RIGHT INTERNAL CAROTID ARTERY: There is calcified plaque formation of the right cavernous carotid artery, with a mild stenosis (less than 50%). ALL ABOVE CRITERIA BY NASCET. No aneurysm. RIGHT ANTERIOR CEREBRAL ARTERY: Unremarkable. No significant stenosis at the visualized segments. Anterior communicating artery is present. No aneurysm. RIGHT MIDDLE CEREBRAL ARTERY: Unremarkable. No significant stenosis at the visualized segments. No aneurysm. RIGHT POSTERIOR CEREBRAL ARTERY: Unremarkable. No significant stenosis at the visualized segments. No aneurysm. RIGHT VERTEBRAL ARTERY: Unremarkable as visualized. No significant stenosis at the intradural/visualized segments. No aneurysm. LEFT INTERNAL CAROTID ARTERY: There is calcified plaque formation of the left cavernous carotid artery, with a mild stenosis (less than 50%). ALL ABOVE CRITERIA BY NASCET. No aneurysm. LEFT ANTERIOR CEREBRAL ARTERY: Unremarkable. No significant stenosis at the visualized segments. Anterior communicating artery is present. No aneurysm. LEFT MIDDLE CEREBRAL ARTERY: Unremarkable. No significant stenosis at the visualized segments. No aneurysm. LEFT POSTERIOR CEREBRAL ARTERY: Unremarkable. No significant stenosis at the visualized segments. No aneurysm. LEFT VERTEBRAL ARTERY: Unremarkable as visualized. No significant stenosis at the intradural/visualized segments. No aneurysm. BASILAR ARTERY: Unremarkable. No significant stenosis. No aneurysm. OTHER VASCULATURE: See above. MRI/MRA Head ONLY without Contrast IMPRESSION: 1. There is calcified plaque formation of the right cavernous carotid artery, with a mild stenosis (less than 50%). ALL ABOVE CRITERIA BY NASCET. 2. There is calcified plaque formation of the left cavernous carotid artery, with a mild stenosis (less than 50%). ALL ABOVE CRITERIA BY NASCET. Electronically Signed: Pavel Bello MD at 21:29 EDT ,
[2021-12-02 16:19] LABS: Troponin-I HS 12 pg/mL (3.0-78.0)
[2021-12-03 00:17] VITALS: PULSE 75
[2021-12-03 01:13] VITALS: BMI 28.8
[2021-12-03 04:00] VITALS: BP 140/75; PULSE 73; RESP 16; TEMP 36.3; O2SAT 99
[2021-12-03 06:12] LABS: Cholesterol 109 mg/dL (200); High Density Lipoprotein 37 mg/dL; Triglycerides 143 mg/dL; Very Low Density Lipoprotein 29 mg/dL (5-40)
[2021-12-03 06:42] VITALS: PULSE 66
[2021-12-03 07:49] VITALS: O2SAT 98
[2021-12-03] MEDS: Lisinopril 20 MG Tablet 30 MG PO (08:11)
[2021-12-03] MEDS: Aspirin E.C. 81 MG Tablet PO (08:11)
[2021-12-03] MEDS: Multivitamin (Healthy Eyes) Capsule 1 CAP PO (08:11)
[2021-12-03] MEDS: Spironolactone 25 MG Tablet PO (08:12)
[2021-12-03] MEDS: FLU VACC QS2022-23(6MOS UP)/PF 60 MCG/0.5 ML SYRINGE IM (08:33)
[2021-12-03 09:30] VITALS: BP 114/69; PULSE 66; RESP 18; TEMP 36.7; O2SAT 100
--- NOTE | 2021-12-03 10:34 | PCM.DC.SUM ---
Providers Date of Admission: 12/02/21 Date of Discharge: 12/03/21 Primary Care Physician: Dr. Wallace Vora MD Reason For Visit: TIA, confusion, ataxia, CVA hx, IV Dye infiltratio Diagnosis Discharge Diagnosis (1) Ataxia: Status: Acute Code(s): R27.0 - Ataxia, unspecified (2) Adverse reaction to contrast media: Status: Acute Code(s): T50.8X5A - Adverse effect of diagnostic agents, initial encounter (3) Near syncope: Status: Acute Code(s): R55 - Syncope and collapse Medications at Discharge Home Medications aspirin 81 mg tablet,delayed release (Adult Aspirin Regimen) 81 mg PO DAILY heart health 12/13/19 calcium carbonate 600 mg calcium (1,500 mg) tablet (Calcium) 600 mg PO QODAY SUPPLEMENT 12/13/19 cetirizine 10 mg tablet (Zyrtec) 10 mg PO DAILY PRN PRN Allergies 12/13/19 guaifenesin 600 mg tablet, extended release 12 hr (Mucinex) 600 mg PO Q12H PRN Congestion 12/13/19 lisinopril 30 mg tablet 30 mg PO DAILY bp 12/13/19 spironolactone 25 mg tablet 25 mg PO DAILY water pill 12/13/19 vit C,E,zinc,copper-dftfu6m 250 mg-lutein 5 mg-zeaxanthin 1 mg capsule (Ocuvite Adult 50 Plus) 1 cap PO DAILY SUPPLEMENT 12/13/19 atorvastatin 40 mg tablet 20 mg PO DAILY cholesterol 03/29/20 ukjtuise-mah-jsrjj acid 300 mcg-lycopene 600 mcg-lutein 300 mcg tablet (Centrum Silver Men) 1 tab PO DAILY health maintenance 12/02/21 Hospital Course Operations None Procedures - (MRI brain/MRA head and neck) Summary of Care Provided Minutes Spent on Discharge: 28 Hospital Course: Mr. Arroyo is an 86-year-old white male who presented to the emergency department [facility] on 12/02/2021 with confusion and dizziness. Apparently, after awakening today he had some mild disorientation and dizziness and reported that he was not able to think clearly enough that he could not take his medicines appropriately. He denied any slurred speech or any receptive aphasia. He also complained of some unsteady gait. These were symptoms similar to his previous stroke which is why he came to the hospital. He reports that he has a family member who is a nurse practitioner and he called them and they advised him to present. Symptoms lasted approximately 30 minutes then resolved. He was in the process of getting evaluated for stroke in the emergency department and was undergoing a CT angiogram at which time contrast extravasated in his left arm and he had a vasovagal event with near syncope causing him to have emesis and diaphoresis. Because of this, we were unfortunately unable to get a CTA on admission. He went for an MRI of the brain which showed and no acute abnormalities. He had an MRA of the head and neck which showed moderate carotid stenosis at 50 to 75% bilaterally. I did discuss these findings with the patient he states he follows with Dr. Chapin for both this and his abdominal aneurysm on a regular basis. He stated he would follow-up him as scheduled. Per documentation it appears his last visit there was 01/01/2021 and the patient indicated he had an appointment soon. He had an echocardiogram done about 20 months ago that showed a normal EF and had a negative bubble study therefore there was really no reason to repeat it at this time. By the a.m. of 12/03/2021 the patient was feeling back to baseline and having no issues with gait or balance. All of his symptoms had resolved and he had no further episodes or abnormalities on telemetry. He was evaluated by physical therapy and deemed not to need any more therapy services at discharge and was discharged home in stable condition on 12/03/2021. Again he was instructed to follow-up with Dr. Chapin as scheduled and follow-up with his primary care physician in the next 2 weeks. No medication changes were made at discharge. Of note he did have that CT contrast extravasation his left upper extremity. This was resolving at the time of discharge and we discussed with him the importance of continued elevation and rest and to read present if he had any worsening symptoms or pain on that left arm. Clinically, it had improved at the time of discharge from the time of extravasation. Discharge diagnoses: Ataxia-resolved Contrast extravasation with adverse reaction-improving Vasovagal near syncope-resolved Bilateral carotid artery stenosis Hypertension Hyperlipidemia AAA PAD explain seasonal allergies History of TIA Physical Exam Const alert, oriented x3, no apparent distress, average body habitus, healthy appearing and well nourished Constitutional Narrative: Extremely pleasant, elderly, white male, sitting up in bed, nursing at bedside, patient ambulated to the bathroom and back independently without any balance issues, appears well and nontoxic, reports he is feeling pretty much his baseline General Appearance: cooperative, comfortable, well kempt and well developed Orientation / Consciousness: awake Exam Limitations: no limitations HEENT normocephalic, head/scalp atraumatic and moist oral mucous membranes HEENT Narrative: Moderate hearing loss, dentures in place, Mallampati 2-3, no thrush Resp normal respiratory effort, no retractions, no use of accessory muscles and clear to auscultation bilaterally Auscultation: Negative for crackles, rales, rhonchi or wheezes Cardio regular rate, regular rhythm, S1 normal heart sound, S2 normal heart sound, no murmurs, no rub, no gallops, no clicks and no JVD GI normal to inspection, nondistended, normoactive bowel sounds, soft to palpation and non-tender Extremity no clubbing, cyanosis or edema Extremity Narrative: 2+ pedal pulses Skin no wounds, skin turgor normal and no jaundice Skin Narrative: Swelling of left upper extremity which is improving related to contrast extravasation with no erythema or ecchymosis, right upper extremity with ecchymosis in the right forearm Neuro oriented x3, CN's II-XII intact bilaterally, moves all extremities, no focal motor deficits and no sensory deficits noted Neuro Narrative: Mild generalized weakness, no gait abnormalities, no focal deficits Speech: speech normal Psych affect normal Psych Narrative: Pleasant and appropriately interactive Weight / BMI Weight Weight: 91 kg Body Mass Index (BMI) 28.8 ABG / Lab / Microbiology Data Result Diagrams: 12/02/21 12:04 12/02/21 12:04 Laboratory: Laboratory Results - last 24 hr 12/02/21 11:42: POC Glucose 133 H 12/02/21 12:04: WBC 9.1, RBC 4.29 L, Hgb 14.6, Hct 41.3, MCV 96.3 H, MCH 34.0 H, MCHC 35.4, RDW Std Deviation 47.7 H, RDW Coeff of Britt 13.3, Plt Count 252, MPV 8.2, Immature Gran % (Auto) 0.500, Neut % (Auto) 75.0 H, Lymph % (Auto) 13.8 L, [place] % (Auto) 8.1, Eos % (Auto) 1.2, Baso % (Auto) 1.4 H, Absolute Neuts (auto) 6.8, Absolute Lymphs (auto) 1.26, Nucleated RBC % 0 12/02/21 12:04: PT 12.6, INR 1.0, APTT 27.9 12/02/21 12:04: Sodium 133 L, Potassium 4.3, Chloride 97 L, Carbon Dioxide 27.0, Anion Gap 9, BUN 16, Creatinine 1.31 H, Estim Creat Clear Calc 41.79, Est GFR (MDRD) Af Amer 67, Est GFR (MDRD) Non-Af 55 L, BUN/Creatinine Ratio 12.2, Glucose 128 H, Calcium 9.6, Troponin I High Sens 10 12/02/21 15:05: Troponin I High Sens 12 12/03/21 05:15: Triglycerides 143, Cholesterol 109, LDL Cholesterol 43, VLDL Cholesterol 29, HDL Cholesterol 37 L Radiography Diagnostic Testing: Radiology Impression Brain CT 12/02/21 11:49 IMPRESSION: Chronic involutional changes of the brain. N.B. : The above Results were Read Back by Hardy Casas MD to Wallace Keen and understanding confirmed on 12/02/2021 12:54:32 (ET). Electronically Signed: Hardy Casas MD at 12:55 EDT , Chest X-Ray 12/02/21 11:49 IMPRESSION: Hyperinflation. Stable mild increased linear markings at the lung bases suggestive of scarring. Electronically Signed: Hardy Casas MD at 12:52 EDT , Brain MRI 12/02/21 15:02 IMPRESSION: (NOT LISTED IN ORDER OF SIGNIFICANCE) There are no acute intracranial findings. Electronically Signed: Pavel Bello MD at 21:27 EDT , Head MRA 12/02/21 15:02 IMPRESSION: 1. There is calcified plaque formation of the right cavernous carotid artery, with a mild stenosis (less than 50%). ALL ABOVE CRITERIA BY NASCET. 2. There is calcified plaque formation of the left cavernous carotid artery, with a mild stenosis (less than 50%). ALL ABOVE CRITERIA BY NASCET. Electronically Signed: Pavel Bello MD at 21:29 EDT , Neck MRA 12/02/21 15:02 IMPRESSION: here is calcified plaque formation of the right cavernous carotid artery, with a moderate stenosis (50-75%). There is calcified plaque formation of the left cavernous carotid artery, with a moderate stenosis (50-75%). ALL ABOVE CRITERIA BY NASCET. Electronically Signed: Pavel Bello MD at 21:32 EDT , D/C Instructions Discharge Diet: Low fat / Low cholesterol Discharge Activity: Return to Normal Activity Meaningful Use Info Meaningful Use Diagnoses (Choose all that apply): None applicable Discharge Plan Admission Admit Date/Time: 12/02/21 14:30 Primary Reason for Your Visit: Confusion/dizziness Attending Provider: Loulou Tamayo Primary Care Provider: Wallace Vora Consulting Providers: Catracho Kim Discharge Orders/Prescriptions Prescriptions: Continued aspirin [Adult Aspirin Regimen] 81 mg tablet,delayed release (DR/EC) 81 mg PO DAILY calcium carbonate [Calcium 600] 600 mg calcium (1,500 mg) tablet 600 mg PO QODAY lisinopril 30 mg tablet 30 mg PO DAILY guaifenesin [Mucinex] 600 mg tablet extended release 12hr 600 mg PO Q12H PRN (Reason: Congestion) spironolactone 25 mg tablet 25 mg PO DAILY cetirizine [Zyrtec] 10 mg tablet 10 mg PO DAILY PRN PRN (Reason: Allergies) Ocuvite Adult 50 Plus 250-5-1 mg capsule 1 cap PO DAILY atorvastatin 40 MG tablet 20 mg PO DAILY Centrum Silver Men 300-600-300 mcg Tablet 1 tab PO DAILY Referrals / Follow Up: Wallace Vora MD [Primary Care Provider] - Within 2 Weeks Roddy Chapin MD [Med Staff - Active Staff] - See Referral Note (as scheduled) Disposition Disposition (needs filled in before D/C Order can be placed): Home, Self Care Charges/Coding Visit Charges OBSV E&M: 70966 Observation care discharge
--- NOTE | 2021-12-03 11:10 | CASEMGMT ---
Per therapy, pt did well. This RN CM to room to discuss d/c and pt/family state no concerns with going home at time of discharge. Pt states no need for any further therapy/resources. SStaten RN CM
--- NOTE | 2021-12-03 11:36 | PHA.DC.MR ---
Pharmacy Service has performed discharge medication reconciliation for this patient. The patient's discharge medication list was reviewed for discrepancies and discrepancies were resolved. Home Medications aspirin 81 mg tablet,delayed release (Adult Aspirin Regimen) 81 mg PO DAILY heart health 12/13/19 calcium carbonate 600 mg calcium (1,500 mg) tablet (Calcium) 600 mg PO QODAY SUPPLEMENT 12/13/19 cetirizine 10 mg tablet (Zyrtec) 10 mg PO DAILY PRN PRN Allergies 12/13/19 guaifenesin 600 mg tablet, extended release 12 hr (Mucinex) 600 mg PO Q12H PRN Congestion 12/13/19 lisinopril 30 mg tablet 30 mg PO DAILY bp 12/13/19 spironolactone 25 mg tablet 25 mg PO DAILY water pill 12/13/19 vit C,E,zinc,copper-vptoi8g 250 mg-lutein 5 mg-zeaxanthin 1 mg capsule (Ocuvite Adult 50 Plus) 1 cap PO DAILY SUPPLEMENT 12/13/19 atorvastatin 40 mg tablet 20 mg PO DAILY cholesterol 03/29/20 hjnaxfaf-pph-dzwsv acid 300 mcg-lycopene 600 mcg-lutein 300 mcg tablet (Centrum Silver Men) 1 tab PO DAILY health maintenance 12/02/21
== END 2021-12-03 10:35 | disposition home or self-care (01) ==
LOC: ED 14:14 → PCU 14:44
PROVIDERS: Emergency Provider Emergency Medicine; PCP Family Medicine; Visit Provider Internal Medicine
DX: R27.0 Ataxia, unspecified (principal); I73.9 Peripheral vascular disease, unspecified; I65.23 Occlusion and stenosis of bilateral carotid arteries; R00.1 Bradycardia, unspecified; Z79.82 Long term (current) use of aspirin; R11.2 Nausea with vomiting, unspecified; Z86.73 Personal history of transient ischemic attack (TIA), and cerebral infarction without residual deficits; R55 Syncope and collapse; R41.0 Disorientation, unspecified; I10 Essential (primary) hypertension; R42 Dizziness and giddiness; Z87.891 Personal history of nicotine dependence; E78.5 Hyperlipidemia, unspecified; Z79.899 Other long term (current) drug therapy; Z85.46 Personal history of malignant neoplasm of prostate; Z92.3 Personal history of irradiation; T50.8X5A Adverse effect of diagnostic agents, initial encounter; Z23 Encounter for immunization
CPT/HCPCS: 36415; 70450; 70544; 70547; 70551; 71045; 80048; 80061; 82962; 84484; 85025; 85610; 85730; 93005; 94762; 96360; 96361; 97162; 97166; 99218; 99285; Q9957; 90686; A4216; G0378

== ENCOUNTER → 2021-12-17 | Outpatient (CLI) | payer BC, SELFPAY ==
--- NOTE | 2021-12-17 07:46 | AAVD_ITS ---
Reason For Study: AAA Aorta Measurements Aorta Doppler Measurements Proximal aorta measures2.27 x 2.22cm. in cross- Peak systolic flow velocities within the proximal sectional axis. aorta measure 50.6 cm/sec. Proximal aorta measures2.35cm. in longitudinal Peak systolic flow velocities within the mid aorta axis. measure 66.9 cm/sec. Mid aorta measures4.06 x 3.83cm. in cross- Peak systolic flow velocities within the distal sectional axis. aorta measure 61.3 cm/sec. Mid aorta measures4.01cm. in longitudinal axis. Distal aorta measures3.42 x 3.46cm. in cross- sectional axis. Distal aorta measures3.40cm. in longitudinal axis. Left Iliac Artery Left iliac artery measures 1.13 cm. in the longitudinal axis. Left iliac artery measures 1.06 x 1.12 cm. in the cross-sectional axis. Peak systolic velocity in the left iliac artery measures 119.3 cm/sec. Right Iliac Artery Right iliac artery measures 0.98 cm. in the longitudinal axis. Right iliac artery measures 0.87 x 0.88 cm. in the cross-sectional axis. Peak systolic velocity in the right iliac artery measures 216.3 cm/sec. Procedure Aorta IVC Iliac vasculature or bypass grafts [id number]. The exam was diagnostic. Technically difficult study due to calcified shadowing. Exam performed in department. 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
== END | disposition home or self-care (01) ==
LOC: CVS 07:45
PROVIDERS: PCP Family Medicine; Referring Provider Surgery; Visit Provider Surgery
DX: I71.40 Abdominal aortic aneurysm, without rupture, unspecified (principal)
CPT/HCPCS: 93978

== ENCOUNTER → 2022-04-03 | Outpatient (CLI) | payer BC, SELFPAY ==
--- NOTE | 2022-04-03 10:34 | CDU_ITS ---
Reason For Study: carotid stenosis Rt. Velocities/BP Lt. Velocities/BP Prox CCA 70.2/19.2 cm/sec. Prox CCA 113.4/20.0 cm/sec. Mid CCA 54.1/13.5 cm/sec. Mid CCA 132.9/26.7 cm/sec. Dist CCA 57.9/18.2 cm/sec. Dist CCA 122.9/20.6 cm/sec. Prox ICA 70.4/16.3 cm/sec. Prox ICA 82.5/14.5 cm/sec. Mid ICA 76.5/18.8 cm/sec. Mid ICA 130.2/31.6 cm/sec. Dist ICA 42.1/11.4 cm/sec. Dist ICA 93.7/29.8 cm/sec. Rt. ICA/CCA = 1.4. Lt. ICA/CCA = 1.0. Prox ECA 471.2/101.1 cm/sec. Prox ECA 126.5/20.6 cm/sec. Rt. Vert. 49.5/12.7 cm/sec. Lt. Vert. 67.9/13.9 cm/sec. Right Extracranial There is homogeneous, smooth atherosclerotic plaque noted in the right common carotid artery. There is heterogeneous, irregular atherosclerotic plaque noted in the right internal carotid artery. There is heterogeneous, irregular atherosclerotic plaque noted in the right external carotid artery. Antegrade flow is noted in the right vertebral artery. Left Extracranial There is heterogeneous, irregular atherosclerotic plaque noted in the left common carotid artery. There is heterogeneous, irregular atherosclerotic plaque noted in the left internal carotid artery. There is homogeneous, smooth atherosclerotic plaque noted in the left external carotid artery. Antegrade flow is noted in the left vertebral artery. Procedure Carotid Duplex 16220. This is a Carotid Duplex examination using B-mode, color flow and specral Doppler. The exam was diagnostic. Exam performed in department. VL/Carotid Duplex Ultrasound Interpretation Summary Regular calcific plaque with shadowing at the proximal right internal carotid a rtery with less than 50% stenosis Greater than 50% stenosis right external carotid artery Widely patent left carotid bulb and proximal internal carotid artery with posto perative changes. Minimally elevated velocity within the left mid internal carotid artery likely secondary to diameter change with likely less than 50% stenosis. Less than 50% stenosis left external carotid artery Patent and antegrade vertebral arteries bilaterally No change from April 03, 2021 Ordering Physician: Roddy Chapin Performed By: Manjit Pena RVT
== END | disposition home or self-care (01) ==
PROVIDERS: PCP Family Medicine; Referring Provider Surgery; Visit Provider Surgery
DX: I65.23 Occlusion and stenosis of bilateral carotid arteries (principal); Z98.890 Other specified postprocedural states
CPT/HCPCS: 93880

== ENCOUNTER → 2022-12-17 | Outpatient (CLI) | payer BC, SELFPAY ==
--- NOTE | 2022-12-17 08:44 | AAVD_ITS ---
Reason For Study: AAA Aorta Measurements Aorta Doppler Measurements Proximal aorta measures2.07 x 2.01cm. in cross- Peak systolic flow velocities within the proximal sectional axis. aorta measure 56.6 cm/sec. Proximal aorta measures2.06cm. in longitudinal Peak systolic flow velocities within the mid aorta axis. measure 65.0 cm/sec. Mid aorta measures4.14 x 4.07cm. in cross- Peak systolic flow velocities within the distal sectional axis. aorta measure 71.1 cm/sec. Mid aorta measures4.21cm. in longitudinal axis. Distal aorta measures3.38 x 3.33cm. in cross- sectional axis. Distal aorta measures3.53cm. in longitudinal axis. Left Iliac Artery Left iliac artery measures 0.82 x 0.83 cm. in the cross-sectional axis. Left iliac artery measures 0.84 cm. in the longitudinal axis. Peak systolic velocity in the left iliac artery measures 180.8 cm/sec. Right Iliac Artery Right iliac artery measures 0.79 x 0.79 cm. in the cross-sectional axis. Right iliac artery measures 0.86 cm. in the longitudinal axis. Peak systolic velocity in the right iliac artery measures 151.7 cm/sec. Procedure Aorta IVC Iliac vasculature or bypass grafts [id number]. The exam was diagnostic. Exam performed in department. VL/Abd Aortic/IVC Duplex scan Interpretation Summary Infrarenal mid abdominal aortic 4.14 x 4.07 cm aneurysm Left common iliac 0.82 x 0.83 cm Right common extra 0.79 x 0.79 cm Previous examination of December 17, 2021 had the aortic aneurysm measurements a s follows 4.06 x 3.83 cm in diameter Ordering Physician: Roddy Chapin Referring Physician: Wallace Vora Performed By: Wiliam Alvarez, RVT
== END | disposition home or self-care (01) ==
PROVIDERS: PCP Family Medicine; Referring Provider Surgery; Visit Provider Surgery
DX: I71.40 Abdominal aortic aneurysm, without rupture, unspecified (principal)
CPT/HCPCS: 93978

== ENCOUNTER → 2023-12-23 | Outpatient (CLI) | payer BC, SELFPAY ==
--- NOTE | 2023-12-23 07:35 | AAVD_ITS ---
Reason For Study: AAA Aorta Measurements Aorta Doppler Measurements Proximal aorta measures2.28 x 2.25cm. in cross- Peak systolic flow velocities within the proximal sectional axis. aorta measure 54.8 cm/sec. Proximal aorta measures2.42cm. in longitudinal Peak systolic flow velocities within the mid aorta axis. measure 55.9 cm/sec. Mid aorta measures2.46 x 2.38cm. in cross- Peak systolic flow velocities within the distal sectional axis. aorta measure 38.4 cm/sec. Mid aorta measures2.62cm. in longitudinal axis. Distal aorta measures4.48 x 4.42cm. in cross- sectional axis. Distal aorta measures4.44cm. in longitudinal axis. Left Iliac Artery Left iliac artery measures 1.01 x 1.09 cm. in the cross-sectional axis. Left iliac artery measures 1.06 cm. in the longitudinal axis. Peak systolic velocity in the left iliac artery measures 72.9 cm/sec. Right Iliac Artery Right iliac artery measures 1.55 x 1.52 cm. in the cross-sectional axis. Right iliac artery measures 1.49 cm. in the longitudinal axis. Peak systolic velocity in the right iliac artery measures 41.8 cm/sec. Procedure Aorta IVC Iliac vasculature or bypass grafts [id number]. The exam was diagnostic. Exam performed in department. VL/Abd Aortic/IVC Duplex scan Interpretation Summary Aorta patent, 4.48 cm aneurysm present Right iliac artery patent with ectasia to 1.55 cm Left iliac artery patent, normal caliber. Ordering Physician: Catracho Connolly Referring Physician: Wallace Vora Performed By: Wiliam Alvarez, RVT
--- NOTE | 2023-12-23 07:35 | CDU_ITS ---
Reason For Study: Bilateral Carotid Stenosis Rt. Velocities/BP Lt. Velocities/BP Prox CCA 71.1/15.4 cm/sec. Prox CCA 124.7/42.6 cm/sec. Mid CCA 74.9/23.0 cm/sec. Mid CCA 121.1/31.6 cm/sec. Dist CCA 51.3/17.3 cm/sec. Dist CCA 117.4/20.6 cm/sec. Prox ICA 143.3/29.2 cm/sec. Prox ICA 70.4/9.0 cm/sec. Mid ICA 46.6/14.5 cm/sec. Mid ICA 144.8/33.4 cm/sec. Dist ICA 95.5/24.3 cm/sec. Dist ICA 115.7/37.7 cm/sec. Rt. ICA/CCA = 1.9. Lt. ICA/CCA = 1.2. Unable to acquire ECA velocity due to Prox ECA 144.8/11.5 cm/sec. shadowing. Lt. Vert. 88.2/27.9 cm/sec. Rt. Vert. 61.7/13.5 cm/sec. Right Extracranial There is heterogeneous, irregular atherosclerotic plaque noted in the right common carotid artery. There is heterogeneous, irregular atherosclerotic plaque noted in the right internal carotid artery. The distal right internal carotid artery is not well visualized. There is heterogeneous, irregular atherosclerotic plaque noted in the right external carotid artery. The atherosclerotic plaque causes acoustic shadowing. The right external carotid artery is not well visualized. Antegrade flow is noted in the right vertebral artery. Left Extracranial There is heterogeneous, irregular atherosclerotic plaque noted in the left common carotid artery. There is heterogeneous, irregular atherosclerotic plaque noted in the left internal carotid artery. The atherosclerotic plaque causes acoustic shadowing. The distal left internal carotid artery is not well visualized. HX CEA. There is heterogeneous, irregular atherosclerotic plaque noted in the left external carotid artery. Antegrade flow is noted in the left vertebral artery. Procedure Carotid Duplex [id number]. This is a Carotid Duplex examination using B-mode, color flow and specral Doppler. The study was technically difficult. Exam performed in department. VL/Carotid Duplex Ultrasound Interpretation Summary Moderate (50-69%) stenosis right extracranial internal carotid. Moderate (50-69%) stenosis left extracranial internal carotid. Patent and antegrade vertebrals bilaterally. Ordering Physician: Catracho Connolly Referring Physician: Wallace Vora Performed By: Wiliam Alvarez RVT
== END | disposition home or self-care (01) ==
LOC: CVS 07:34
PROVIDERS: PCP Family Medicine; Referring Provider Surgery Trauma Surgery; Visit Provider Surgery Trauma Surgery
DX: I71.40 Abdominal aortic aneurysm, without rupture, unspecified (principal); I65.22 Occlusion and stenosis of left carotid artery; Z98.890 Other specified postprocedural states
CPT/HCPCS: 93880; 93978

== ENCOUNTER → 2024-11-11 | Outpatient (CLI) | payer BC, SELFPAY ==
--- NOTE | 2024-11-11 10:49 | ART_ITS ---
Reason For Study Reason For Study: Ulcer right foot Procedure A bilateral lower extremity continuous wave Doppler with analog waveform analysis,segmental pressures,and ankle brachial indexes without exercise. Left Segmental Pressures Left brachial= 161mmHg. Left high thigh = 198mmHg. Left low thigh = 134mmHg. Left calf = 120mmHg. Left posterior tibial artery = 100mmHg. Left dorsalis pedis artery = 93mmHg. Left digit = 87 mmHg. The left dorsalis pedis waveforms are monophasic. The left posterior tibial artery waveforms are biphasic. Right Segmental Pressures Right brachial= 168mmHg. Right high thigh = 92mmHg. Right low thigh = 86mmHg. Right calf = 82mmHg. Right posterior tibial artery = 85mmHg. Right dorsalis pedis artery = 84mmHg. Right digit = 77 mmHg. The right dorsalis pedis waveforms are monophasic. The right posterior tibial artery waveforms are monophasic. Indices The right ankle brachial index by the dorsalis pedis is 0.50. The right ankle brachial index by the posterior tibial artery is 0.51. The right digital-brachial index is 0.46. The left ankle brachial index by the dorsalis pedis is 0.55. The left ankle brachial index by the posterior tibial artery is 0.60. The left digital-brachial index is 0.52. VL/Lower Ext Art Exam w/o Exercis Interpretation Summary Right CRISTINA 0.51, moderate arterial insufficiency. Doppler/PVR waveforms and segm ental pressures reveal aorto-iliac disease. Left CRISTINA 0.6, moderate arterial insufficiency. Doppler/PVR waveforms and segmen olayinka pressures reveal proximal femoral, infrapopliteal disease. Ordering Physician: Wallace Vyas Referring Physician: Wallace Vora Performed By: Caprice Pitt RVAimee
== END | disposition home or self-care (01) ==
LOC: CVS 10:47
PROVIDERS: PCP Family Medicine; Referring Provider Podiatrist; Visit Provider Podiatrist
DX: L97.519 Non-pressure chronic ulcer of other part of right foot with unspecified severity (principal); I73.9 Peripheral vascular disease, unspecified
CPT/HCPCS: 93923

== ENCOUNTER → 2025-01-02 | Outpatient (CLI) | payer BC, SELFPAY ==
--- NOTE | 2025-01-02 08:35 | AAVD_ITS ---
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 in cross-sectional Peak systolic flow velocities within the proximal aorta axis. measure 46.1 cm/sec. Proximal aorta measures2.01cm. in longitudinal axis. Peak systolic flow velocities within the mid aorta measure Mid aorta measures2.65 x 2.63cm. in cross-sectional axis. 71.3 cm/sec. Mid aorta measures2.73cm. in longitudinal axis. Peak systolic flow velocities within the distal aorta Distal aorta measures4.19 x 4.31cm. in cross-sectional axis.measure 103.9 cm/sec. Distal aorta measures4.46cm. in longitudinal axis. Left Iliac Artery Left iliac artery measures 1.16 x 1.14 cm. in the cross-sectional axis. Left iliac artery measures 1.08 cm. in the longitudinal axis. Peak systolic velocity in the left iliac artery measures 144.0 cm/sec. Right Iliac Artery Right iliac artery measures 1.06 x 1.10 cm. in the cross-sectional axis. Right iliac artery measures 1.09 cm. in the longitudinal axis. Peak systolic velocity in the right iliac artery measures 119.3 cm/sec. Procedure Aorta IVC Iliac vasculature or bypass grafts [id number]. The exam was diagnostic. Exam performed in department. 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 Bilateral iliac arteries patent, normal caliber. Ordering Physician: Umm Dillon Referring Physician: Wallace Vora Performed By: Wiliam Alvarez RVT and Student
--- NOTE | 2025-01-02 08:35 | CDU_ITS ---
Reason For Study Reason For Study: HX Lt ICA CEA Rt. Velocities/BP Lt. Velocities/BP Prox CCA 69.2/18.2 cm/sec. Prox CCA 101.0/24.3 cm/sec. Mid CCA 65.5/18.2 cm/sec. Mid CCA 132.1/27.9 cm/sec. Dist CCA 47.5/16.3 cm/sec. Dist CCA 121.1/27.9 cm/sec. Prox ICA 74.0/16.3 cm/sec. Prox ICA 132.1/35.3 cm/sec. Mid ICA 62.6/18.2 cm/sec. Mid ICA 91.2/26.2 cm/sec. Dist ICA 54.1/14.5 cm/sec. Dist ICA 77.8/23.9 cm/sec. Rt. ICA/CCA = 1.0. Lt. ICA/CCA = 1.0. Prox ECA 236.6/56.1 cm/sec. Prox ECA 141.2/22.5 cm/sec. Rt. Vert. 70.2/19.2 cm/sec. Lt. Vert. 44.3/6.9 cm/sec. Right Extracranial There is heterogeneous, irregular atherosclerotic plaque noted in the right common carotid artery. The atherosclerotic plaque causes acoustic shadowing. There is heterogeneous, irregular atherosclerotic plaque noted in the right internal carotid artery. The atherosclerotic plaque causes acoustic shadowing. There is heterogeneous, irregular atherosclerotic plaque noted in the right external carotid artery. The atherosclerotic plaque causes acoustic shadowing. Antegrade flow is noted in the right vertebral artery. Left Extracranial There is heterogeneous, irregular atherosclerotic plaque noted in the left common carotid artery. There is heterogeneous, irregular atherosclerotic plaque noted in the left internal carotid artery. HX Lt ICA CEA. There is heterogeneous, irregular atherosclerotic plaque noted in the left external carotid artery. Antegrade flow is noted in the left vertebral artery. Procedure Carotid Duplex 39783. This is a Carotid Duplex examination using B-mode, color flow and specral Doppler. The exam was diagnostic. Exam performed in department. VL/Carotid Duplex Ultrasound Interpretation Summary Mild (<50%) stenosis right extracranial internal carotid. Moderate (50-69%) stenosis left extracranial internal carotid. Patent and antegrade vertebrals bilaterally. Ordering Physician: Umm Dillon Referring Physician: Wallace Vora Performed By: Wiliam Alvarez RVT
== END | disposition home or self-care (01) ==
LOC: CVS 08:34
PROVIDERS: PCP Family Medicine; Referring Provider Physician Assistant; Visit Provider Physician Assistant
DX: I71.40 Abdominal aortic aneurysm, without rupture, unspecified (principal); Z98.890 Other specified postprocedural states
CPT/HCPCS: 93880; 93978